=== PATIENT | male | born 1950 | race Caucasian/White ===

== ENCOUNTER 2018-10-20 21:26 | Emergency (ER) | payer MEDICARE, OTHER, SELFPAY ==
[2018-10-20 21:32] VITALS: BP 116/83; PULSE 179; RESP 18; TEMP 36.4; O2SAT 97; BMI 26.4
--- NOTE | 2018-10-20 21:44 | PC.NURSE ---
Pt converted to SR shortly after triage from HR in 170-190 to 50-60's. Pt denies any CP, SOB, dizziness during Afib but able to feel irregularity and palpitations. Pt reports the duration was about 20 min.
--- NOTE | 2018-10-20 22:10 | ED.ARRPALP ---
HPI - Arrhythmia/Palpitations General Chief Complaint: Arrhythmia/Palpitations Stated Complaint: states his heart is racing Time Seen by Provider: 10/20/18 21:56 Source: patient Mode of arrival: ambulatory Limitations: no limitations History of Present Illness HPI narrative: Patient presents emergency department complaining of an episode of palpitations and heart racing that lasted for about 20 minutes. Patient states that he has a history of atrial fibrillation and about 1 year ago had an ablation for this. He states that he has had no problems with the AFib with RVR until a couple of days ago when he had an elevated heart rate around 190. He states this only lasted about 10 minutes and then converted on its own. He states that he has had an upper respiratory type infection for the last week, but has been starting to feel better. He states he has gone out walking a couple of times and has felt good. He denies any chest pain or shortness of breath during the episode. No lightheadedness or dizziness. No syncope. Patient denies any nausea or vomiting. He states that since his episode converted upon arrival in triage, he feels normal. No other complaints at this time. The patient states that he was previously on digoxin and amiodarone, but those were both discontinued back in February. He states he takes metoprolol and Coumadin. Related Data Home Medications Medication Instructions Recorded Confirmed digoxin [Lanoxin] 0.125 mg PO QDAY #0 04/20/16 lisinopril 5 mg PO BID #0 04/20/16 metoprolol succinate [Toprol XL] 25 mg PO QDAY #0 04/20/16 spironolactone [Aldactone] 12.5 mg PO QDAY #0 04/20/16 aspirin 81 mg PO Q DAY #0 05/21/17 aspirin 325 mg PO PRN PRN #0 08/23/17 Previous Rx's Medication Instructions Recorded metoprolol succinate [Toprol XL] 25 mg PO BID #30 tab 08/26/17 warfarin [Coumadin] 5 mg PO QDAY #30 08/26/17 amiodarone 200 mg PO [facility] tab 09/26/17 Review of Systems Constitutional Denies chills, Denies fever(s), Denies lethargy and Denies weakness Eyes Denies change in vision, Denies eye discharge, Denies irritation and Denies loss of vision ENT Ears, Nose, Mouth, and Throat: Denies change in voice, Denies neck pain and Denies sore throat Cardiovascular Denies chest pain, Denies irregular heart rhythm, Denies lightheadedness, Reports palpitations, Denies dyspnea, Denies dyspnea on exertion and Denies orthopnea Respiratory Denies cough, Denies dyspnea, Denies dyspnea on exertion and Denies wheezing Gastrointestinal Gastrointestinal: Denies abdominal pain, Denies change in bowel habits, Denies diarrhea, Denies nausea and Denies vomiting Genitourinary Denies hematuria, Denies flank pain, Denies urinary incontinence and Denies urinary urgency Musculoskeletal Denies neck pain Integumentary/Breasts Denies pruritus, Denies erythema, Denies rash and Denies wounds Neurologic Denies confusion, Denies loss of vision and Denies weakness Psychiatric Denies anxiety, Denies confusion, Denies depression, Denies homicidal ideation and Denies suicidal ideation Endocrine Reports palpitations Hematologic/Lymphatic Denies easy bruising Allergic/Immunologic Denies wheezing [facility] Medical History Left inguinal hernia (Acute) Paroxysmal atrial fibrillation (Acute) Palpitations (Acute) Atrial fibrillation with rapid ventricular response (Acute) Shortness of breath (Acute) Headache (Acute) Surgical History History of radiofrequency ablation procedure for cardiac arrhythmia (Acute) Social History Smoking Status: Never smoker Social History Smoking Status: Never smoker Exam Initial Vital Signs Initial Vital Signs: Vital Signs Temperature 97.5 F L 10/20/18 21:32 Pulse Rate 179 H 10/20/18 21:32 Respiratory Rate 18 10/20/18 21:32 Blood Pressure 116/83 10/20/18 21:32 Pulse Oximetry 97 10/20/18 21:32 Const General: cooperative and well developed Nutritional Appearance: well nourished Orientation: alert, awake, oriented x3 and not confused [facility] Head: normocephalic and atraumatic Ears: external ears normal Nose: external nose normal and No nasal discharge Face and sinus: face symmetric and No dry mucous membranes Mouth: oral mucosae normal and moist mucous membranes Teeth and gingiva: dentition normal Eyes General: appearance normal, both eyes and all related structures Eyelids: eyelids normal Conjunctivae: conjunctivae normal Sclera: sclerae normal Pupils: PERRL EOM: EOM intact bilaterally Neck Neck: normal visual inspection, trachea midline, No lymphadenopathy, No midline deformity and No JVD Lymphatic: No lymphedema Chest Chest: normal inspection of the chest Resp Effort & Inspection: normal respiratory effort, able to speak in complete sentences, no respiratory distress and no use of accessory muscles Auscultation: clear to auscultation bilaterally, no rales, no rhonchi and no wheezes Cardio Rate: regular rate Rhythm: regular rhythm Heart Sounds: no click, no gallops, no murmurs and no rubs Pulses: normal peripheral pulses GI Inspection: non-distended Palpation: soft, no hepatosplenomegaly, No guarding, No pulsatile mass and No tender Auscultation: normal bowel sounds Back/Spine/Pelvis Back: No CVA tenderness Cervical Spine: cervical ROM normal and No pain with cervical ROM Thoracic/Lumbar Spine: thoracic and lumbar spine normal to inspection Skin General: no rashes or lesions noted, No jaundice and No petechiae Neuro General: alert, oriented x3, gait normal and no focal motor deficits Speech: speech normal Extrem General: full ROM, no clubbing, cyanosis or edema, no pedal edema and no calf tenderness Psych Appearance: well kempt Mental Status: mental status grossly normal Attitude: cooperative Thought Content: normal and suicidality Judgment: judgment good Course Course Narrative: The patient arrived with a pulse of 179 in triage, but converted to a normal sinus rhythm in the upper 50s to lower 60s while there. The patient was feeling quite well when I evaluated him, but I did feel that he should have basic laboratory studies done to determine whether there are any other contributors to the recurrence of his RVR. EKG was performed showed a sinus bradycardia. Labs were unremarkable. The patient remained stable throughout his stay in the emergency department, and I did feel he was stable for discharge home. We have discussed the need for patient to touch base with Cardiology again to determine whether he should be on anything for the episodes of tachycardia, or whether his web methods developer would prefer to wait and see if a pattern emerges. Patient was agreeable to this plan. We have discussed the usual indications for return. Orders Ordered: ED Orders 10/20/18 21:32 EKG-12 Lead Stat 10/20/18 22:22 Complete Blood Count AUTO DIFF Stat Comprehensive Metabolic Panel Stat Vital Signs - 8 hr 10/20/18 21:32 10/20/18 22:42 10/20/18 23:05 Temperature 97.5 F L Pulse Rate 179 H 51 L 52 L Respiratory Rate 18 13 16 Blood Pressure 116/83 Blood Pressure [Left Arm] 113/71 109/70 Pulse Oximetry 97 98 97 MDM - Arrhythmia/Palpitations Medical Records Attestation: I reviewed the patient's medical records. Lab Data Attestation: I reviewed the patient's lab results. Result diagrams: 10/20/18 22:22 10/20/18 22:22 Lab Results 10/20/18 10/20/18 Range/Units 22:22 22:22 WBC 8.3 (4.5-11.0) X10^3/uL RBC 4.83 (4.5-5.9) X10^6/uL Hgb 14.5 (13.5-17.5) g/dL Hct 43.0 (41-53) % MCV 89.2 (80-100) fL MCH 30.1 (26-34) PG MCHC 33.8 (30-36) % RDW 13.3 (11.6-14.8) % Plt Count 206 (150-400) X10^3/uL Neut % (Auto) 59.0 (50-75) % Lymph % (Auto) 28.4 (25-40) % [place] % (Auto) 7.1 (3-14) % Eos % (Auto) 4.2 H (2-4) % Baso % (Auto) 1.3 (0-2) % Neut # (Auto) 4900 (7458-1488) /uL Lymph # (Auto) 2400 (1729-4648) /uL [place] # (Auto) 600 (0-900) /uL Eos # (Auto) 300 (0-450) /uL Baso # (Auto) 100 (0-100) /uL Sodium 139 (137-145) mmol/L Potassium 4.3 (3.4-5.1) mmol/L Chloride 104 (98-107) mmol/L Carbon Dioxide 23 (22-32) mmol/L BUN 25 H (9-20) mg/dL Creatinine 1.10 (0.66-1.25) mg/dL Estimated GFR > 60.0 (>60) mL/min BUN/Creatinine Ratio 22.7 H (6-22) Glucose 114 H (80-110) mg/dL Calcium 8.7 (8.4-10.2) mg/dL Total Bilirubin 0.4 (0.2-1.3) mg/dL AST 22 (17-59) IU/L ALT 37 (21-72) IU/L Alkaline Phosphatase 80 (38-126) U/L Total Protein 7.0 (6.3-8.2) g/dL Albumin 4.2 (3.5-5.0) g/dL Globulin 2.8 (1.7-4.1) g/dL Albumin/Globulin Ratio 1.5 (1.0-2.8) ECG Data Attestation: I personally reviewed and interpreted this ECG as follows: (See below) Interpretation: Twelve lead EKG performed October 20, 2018 at 9:38 p.m., as follows: Regular ventricular rhythm with a rate of 59 beats per min [place] interval 158 milliseconds QRS duration 95 milliseconds QTC interval [address] depression 1 mm or less in leads 2, 3, and V3-5 Interpretation: Sinus bradycardia with occasional supraventricular premature complexes; moderate ST depression, scattered leads; no STEMI; abnormal EKG as interpreted by ED MD. Discharge Plan Departure Patient Disposition: Home Clinical Impression: Atrial fibrillation with rapid ventricular response Discharge Date/Time: 10/20/18 23:14 Interventions: ED Discharge Assessment Last Done: 10/20/18 23:15 Instructions: DI for Atrial Fibrillation Activity Restrictions/Additional Instructions: Your labs look good. You will need to call your web methods developer's office tomorrow to determine whether anything further should be done for your brief periods of atrial fibrillation with rapid response. At this point in time, you are in a normal heart rhythm and a normal heart rate, and we will not change your medications for now. Prescriptions: No Action metoprolol succinate [Toprol XL] 25 MG tablet extended release 24 hr 25 mg PO QDAY Qty: 0 RF: 0 digoxin [Lanoxin] 125 MCG tablet 0.125 mg PO QDAY Qty: 0 RF: 0 lisinopril 10 MG tablet 5 mg PO BID Qty: 0 RF: 0 spironolactone [Aldactone] 25 MG tablet 12.5 mg PO QDAY Qty: 0 RF: 0 aspirin 81 MG tablet,delayed release (DR/EC) 81 mg PO Q DAY Qty: 0 RF: 0 aspirin 325 MG tablet 325 mg PO PRN PRNQty: 0 RF: 0 warfarin [Coumadin] 5 MG tablet 5 mg PO QDAY Qty: 30 RF: 0 metoprolol succinate [Toprol XL] 25 MG tablet extended release 24 hr 25 mg PO BID Qty: 30 RF: 0 amiodarone 200 MG tablet 200 mg PO [facility] [address] Qty: 30 RF: 0 Referrals: Fernando Law MD [Primary Care Provider] -
--- NOTE | 2018-10-20 22:14 | ED_ITS ---
HPI - Arrhythmia/Palpitations General Chief Complaint: Arrhythmia/Palpitations Stated Complaint: states his heart is racing Time Seen by Provider: 10/20/18 21:56 Source: patient Mode of arrival: ambulatory Limitations: no limitations History of Present Illness HPI narrative: Patient presents emergency department complaining of an episode of palpitations and heart racing that lasted for about 20 minutes. Patient s tates that he has a history of atrial fibrillation and about 1 year ago had an ablation for this. He states that he has had no problems with the AFib with RVR until a couple of days ago when he had an elevated heart rate around 190. He states this only lasted about 10 minutes and then converted on its own. He states that he has had an upper respiratory type infection for the last week, but has been starting to feel better. He states he has gone out walking a couple of times and has felt good. He denies any chest pain or shortness of breath during the episode. No lightheadedness or dizziness. No syncope. Patient denies any nausea or vomiting. He states that since his episode converted upon arrival in triage, he feels normal. No other complaints at this time. The patient states that he was previously on digoxin and amiodarone, but those were both discontinued back in February. He states he takes metoprolol and Coumadin. Related Data Home Medications Medication Instructions Recorded Confirmed digoxin [Lanoxin] 0.125 mg PO QDAY #0 04/20/16 lisinopril 5 mg PO BID #0 04/20/16 metoprolol succinate [Toprol XL] 25 mg PO QDAY #0 04/20/16 spironolactone [Aldactone] 12.5 mg PO QDAY #0 04/20/16 aspirin 81 mg PO Q DAY #0 05/21/17 aspirin 325 mg PO PRN PRN #0 08/23/17 Previous Rx's Medication Instructions Recorded metoprolol succinate [Toprol XL] 25 mg PO BID #30 tab 08/26/17 warfarin [Coumadin] 5 mg PO QDAY #30 08/26/17 amiodarone 200 mg PO [facility] [place] tab 09/26/17 Review of Systems Constitutional Denies chills, Denies fever(s), Denies lethargy and Denies weakness Eyes Denies change in vision, Denies eye discharge, Denies irritation and Denies loss of vision ENT Ears, Nose, Mouth, and Throat: Denies change in voice, Denies neck pain and Denies sore throat Cardiovascular Denies chest pain, Denies irregular heart rhythm, Denies lightheadedness, Re ports palpitations, Denies dyspnea, Denies dyspnea on exertion and Denies orthopnea Respiratory Denies cough, Denies dyspnea, Denies dyspnea on exertion and Denies wheezing Gastrointestinal Gastrointestinal: Denies abdominal pain, Denies change in bowel habits, Denies diarrhea, Denies nausea and Denies vomiting Genitourinary Denies hematuria, Denies flank pain, Denies urinary incontinence and Denies ur inary urgency Musculoskeletal Denies neck pain Integumentary/Breasts Denies pruritus, Denies erythema, Denies rash and Denies wounds Neurologic Denies confusion, Denies loss of vision and Denies weakness Psychiatric Denies anxiety, Denies confusion, Denies depression, Denies homicidal ideation and Denies suicidal ideation Endocrine Reports palpitations Hematologic/Lymphatic Denies easy bruising Allergic/Immunologic Denies wheezing [facility] Medical History Left inguinal hernia (Acute) Paroxysmal atrial fibrillation (Acute) Palpitations (Acute) Atrial fibrillation with rapid ventricular response (Acute) Shortness of breath (Acute) Headache (Acute) Surgical History History of radiofrequency ablation procedure for cardiac arrhythmia (Acute) Social History Smoking Status: Never smoker Social History Smoking Status: Never smoker Exam Initial Vital Signs Initial Vital Signs: Vital Signs Temperature 97.5 F L 10/20/18 21:32 Pulse Rate 179 H 10/20/18 21:32 Respiratory Rate 18 10/20/18 21:32 Blood Pressure 116/83 10/20/18 21:32 Pulse Oximetry 97 10/20/18 21:32 Const General: cooperative and well developed Nutritional Appearance: well nourished Orientation: alert, awake, oriented x3 and not confused [facility] Head: normocephalic and atraumatic Ears: external ears normal Nose: external nose normal and No nasal discharge Face and sinus: face symmetric and No dry mucous membranes Mouth: oral mucosae normal and moist mucous membranes Teeth and gingiva: dentition normal Eyes General: appearance normal, both eyes and all related structures Eyelids: eyelids normal Conjunctivae: conjunctivae normal Sclera: sclerae normal Pupils: PERRL EOM: EOM intact bilaterally Neck Neck: normal visual inspection, trachea midline, No lymphadenopathy, No midline deformity and No JVD Lymphatic: No lymphedema Chest Chest: normal inspection of the chest Resp Effort & Inspection: normal respiratory effort, able to speak in complete sentences, no respiratory distress and no use of accessory muscles Auscultation: clear to auscultation bilaterally, no rales, no rhonchi and no wheezes Cardio Rate: regular rate Rhythm: regular rhythm Heart Sounds: no click, no gallops, no murmurs and no rubs Pulses: normal peripheral pulses GI Inspection: non-distended Palpation: soft, no hepatosplenomegaly, No guarding, No pulsatile mass and No tender Auscultation: normal bowel sounds Back/Spine/Pelvis Back: No CVA tenderness Cervical Spine: cervical ROM normal and No pain with cervical ROM Thoracic/Lumbar Spine: thoracic and lumbar spine normal to inspection Skin General: no rashes or lesions noted, No jaundice and No petechiae Neuro General: alert, oriented x3, gait normal and no focal motor deficits Speech: speech normal Extrem General: full ROM, no clubbing, cyanosis or edema, no pedal edema and no calf tenderness Psych Appearance: well kempt Mental Status: mental status grossly normal Attitude: cooperative Thought Content: normal and suicidality Judgment: judgment good Course Course Narrative: The patient arrived with a pulse of 179 in triage, but converted to a normal sinus rhythm in the upper 50s to lower 60s while there. The patient was feeling quite well when I evaluated him, but I did feel that he should have basic laboratory studies done to determine whether there are any other contributors to the recurrence of his RVR. EKG was performed showed a sinus bradycardia. Labs were unremarkable. The patient remained stable throughout his stay in the emergency department, and I did feel he was stable for discharge home. We have discussed the need for patient to touch base with Cardiology again to determine whether he should be on anything for the episodes of tachycardia, or whether his pipeline executive would prefer to wait and see if a pattern emerges. Patient was agreeable to this plan. We have discussed the usual indications for return. Orders Ordered: ED Orders 10/20/18 21:32 EKG-12 Lead Stat 10/20/18 22:22 Complete Blood Count AUTO DIFF Stat Comprehensive Metabolic Panel Stat Vital Signs - 8 hr 10/20/18 21:32 10/20/18 22:42 10/20/18 23:05 Temperature 97.5 F L Pulse Rate 179 H 51 L 52 L Respiratory Rate 18 13 16 Blood Pressure 116/83 Blood Pressure [Left Arm] 113/71 109/70 Pulse Oximetry 97 98 97 MDM - Arrhythmia/Palpitations Medical Records Attestation: I reviewed the patient's medical records. Lab Data Attestation: I reviewed the patient's lab results. Result diagrams: 10/20/18 22:22 10/20/18 22:22 Lab Results 10/20/18 10/20/18 Range/Units 22:22 22:22 WBC 8.3 (4.5-11.0) X10^3/uL RBC 4.83 (4.5-5.9) X10^6/uL Hgb 14.5 (13.5-17.5) g/dL Hct 43.0 (41-53) % MCV 89.2 (80-100) fL MCH 30.1 (26-34) PG MCHC 33.8 (30-36) % RDW 13.3 (11.6-14.8) % Plt Count 206 (150-400) X10^3/uL Neut % (Auto) 59.0 (50-75) % Lymph % (Auto) 28.4 (25-40) % [place] % (Auto) 7.1 (3-14) % Eos % (Auto) 4.2 H (2-4) % Baso % (Auto) 1.3 (0-2) % Neut # (Auto) 4900 (3203-6615) /uL Lymph # (Auto) 2400 (9875-3068) /uL [place] # (Auto) 600 (0-900) /uL Eos # (Auto) 300 (0-450) /uL Baso # (Auto) 100 (0-100) /uL Sodium 139 (137-145) mmol/L Potassium 4.3 (3.4-5.1) mmol/L Chloride 104 (98-107) mmol/L Carbon Dioxide 23 (22-32) mmol/L BUN 25 H (9-20) mg/dL Creatinine 1.10 (0.66-1.25) mg/dL Estimated GFR > 60.0 (>60) mL/min BUN/Creatinine Ratio 22.7 H (6-22) Glucose 114 H (80-110) mg/dL Calcium 8.7 (8.4-10.2) mg/dL Total Bilirubin 0.4 (0.2-1.3) mg/dL AST 22 (17-59) IU/L ALT 37 (21-72) IU/L Alkaline Phosphatase 80 (38-126) U/L Total Protein 7.0 (6.3-8.2) g/dL Albumin 4.2 (3.5-5.0) g/dL Globulin 2.8 (1.7-4.1) g/dL Albumin/Globulin Ratio 1.5 (1.0-2.8) ECG Data Attestation: I personally reviewed and interpreted this ECG as follows: (See below) Interpretation: Twelve lead EKG performed October 20, 2018 at 9:38 p.m., as follows: Regular ventricular rhythm with a rate of 59 beats per min [place] interval 158 milliseconds QRS duration 95 milliseconds QTC interval [address] depression 1 mm or less in leads 2, 3, and V3-5 Interpretation: Sinus bradycardia with occasional supraventricular premature complexes; moderate ST depression, scattered leads; no STEMI; abnormal EKG as interpreted by ED MD. Discharge Plan Departure Patient Disposition: Home Clinical Impression: Atrial fibrillation with rapid ventricular response Discharge Date/Time: 10/20/18 23:14 Interventions: ED Discharge Assessment Last Done: 10/20/18 23:15 Instructions: DI for Atrial Fibrillation Activity Restrictions/Additional Instructions: Your labs look good. You will need to call your pipeline executive's office tomorrow to determine whether anything further should be done for your brief periods of atrial fibrillation with rapid response. At this point in time, you are in a normal heart rhythm and a normal heart rate, and we will not change your medications for now. Prescriptions: No Action metoprolol succinate [Toprol XL] 25 MG tablet extended release 24 hr 25 mg PO QDAY Qty: 0 RF: 0 digoxin [Lanoxin] 125 MCG tablet 0.125 mg PO QDAY Qty: 0 RF: 0 lisinopril 10 MG tablet 5 mg PO BID Qty: 0 RF: 0 spironolactone [Aldactone] 25 MG tablet 12.5 mg PO QDAY Qty: 0 RF: 0 aspirin 81 MG tablet,delayed release (DR/EC) 81 mg PO Q DAY Qty: 0 RF: 0 aspirin 325 MG tablet 325 mg PO PRN PRNQty: 0 RF: 0 warfarin [Coumadin] 5 MG tablet 5 mg PO QDAY Qty: 30 RF: 0 metoprolol succinate [Toprol XL] 25 MG tablet extended release 24 hr 25 mg PO BID Qty: 30 RF: 0 amiodarone 200 MG tablet 200 mg PO [facility] Qty: 30 RF: 0 Referrals: Fernando Law MD [Primary Care Provider] -
[2018-10-20 22:34] LABS: Add Manual Diff / Slide Review NO; Basophils Absolute Auto 100 /uL (0-100); Basophils Percent Auto 1.3 % (0-2); Eosinophils Absolute Auto 300 /uL (0-450); Eosinophils Percent Auto 4.2 % (2-4); Hemoglobin 14.5 g/dL (13.5-17.5); Lymphocytes Absolute Auto 2400 /uL (1100-4500); Lymphocytes Percent Auto 28.4 % (25-40); Mean Corpuscular HGB Conc 33.8 % (30-36); Mean Corpuscular Hemoglobin 30.1 PG (26-34); Mean Corpuscular Volume 89.2 fL (80-100); Monocytes Absolute Auto 600 /uL (0-900); Monocytes Percent Auto 7.1 % (3-14); Neutrophils Absolute Auto 4900 /uL (1500-7000); Platelet Count 206 X10^3/uL (150-400); Red Blood Cell Count 4.83 X10^6/uL (4.5-5.9); Red Cell Distribution Width 13.3 % (11.6-14.8); White Blood Cell Count 8.3 X10^3/uL (4.5-11.0)
[2018-10-20 22:39] LABS: Alanine Aminotransferase 37 IU/L (21-72); Albumin 4.2 g/dL (3.5-5.0); Albumin Globulin Ratio 1.5 (1.0-2.8); Alkaline Phosphatase 80 U/L (38-126); Aspartate Aminotransferase 22 IU/L (17-59); BUN Creatinine Ratio 22.7 (6-22); Bilirubin Total 0.4 mg/dL (0.2-1.3); Blood Urea Nitrogen 25 mg/dL (9-20); Calcium 8.7 mg/dL (8.4-10.2); Carbon Dioxide 23 mmol/L (22-32); Chloride 104 mmol/L (98-107); Estimated Glomerular Filt Rate > 60.0 mL/min (>60); Globulin 2.8 g/dL (1.7-4.1); Glucose 114 mg/dL (80-110); HEMOLYSIS 23 (0-50); Potassium 4.3 mmol/L (3.4-5.1); Sodium 139 mmol/L (137-145)
[2018-10-20 22:42] VITALS: BP 113/71; PULSE 51; RESP 13; O2SAT 98
[2018-10-20 23:05] VITALS: BP 109/70; PULSE 52; RESP 16; O2SAT 97
== END 2018-10-20 23:14 | disposition home or self-care (01) ==
PROVIDERS: Emergency Provider Emergency Medicine; PCP Internal Medicine Cardiovascular Disease
DX: I48.91 Unspecified atrial fibrillation (principal)
CPT/HCPCS: 36415; 80053; 85025; 93005; 93041; 99283; 99284

== ENCOUNTER → 2018-10-29 08:39 | Outpatient (CLI) | payer MEDICARE, OTHER, SELFPAY ==
--- NOTE | 2018-10-29 08:41 | DI.RAD.S_ITS ---
PROCEDURE: XR CHEST 2V INDICATIONS: cough TECHNIQUE: 2 views of the chest were acquired. COMPARISON: [facility], CHEST 1 VIEW, 09/24/2017, 20:14. [facility], CHEST 1 VIEW, 08/26/2017, 11:44. FINDINGS: Surgical changes and devices: None. Lungs and pleura: Lungs are large, COPD may be present. No pneumonia or neoplasm is found.. No pleural effusions or pneumothorax. Mediastinum: Mediastinal contours are normal. Heart size is normal. Bones and chest wall: No suspicious bony abnormalities. Soft tissues appear unremarkable. IMPRESSION: Large lung volumes, no acute disease found. Dictated by: Maurisio Amos M.D. on 10/29/2018 at 8:55 Approved by: Maurisio Amos M.D. on 10/29/2018 at 9:00
== END ==
PROVIDERS: Referring Provider Internal Medicine Cardiovascular Disease; Visit Provider Physician Assistant
DX: R05 Cough (principal)
CPT/HCPCS: 71046

== ENCOUNTER → 2018-12-23 07:45 | Outpatient (CLI) | payer MEDICARE, OTHER, SELFPAY ==
[2018-12-23 09:10] LABS: Hemoglobin A1C% w Est Avg Glu 5.2 % (4.0-6.0)
[2018-12-23 09:42] LABS: Cholesterol 257 mg/dL (140-199); HDL Cholesterol 33 mg/dL (40-60); LDL Cholesterol Calculated 171 mg/dL (<100); Triglycerides 263 mg/dL (35-150)
== END ==
PROVIDERS: PCP Nurse Practitioner Family; Visit Provider Nurse Practitioner Family
DX: Z13.6 Encounter for screening for cardiovascular disorders (principal); R73.9 Hyperglycemia, unspecified
CPT/HCPCS: 36415; 80061; 83036

== ENCOUNTER → 2019-01-03 14:29 | Outpatient (CLI) | payer MEDICARE, OTHER, SELFPAY ==
[2019-01-07 18:01] LABS: Fecal Immunochemical Test NOT DETECTED (NOT DETECTED)
== END ==
PROVIDERS: PCP Nurse Practitioner Family; Visit Provider Nurse Practitioner Family
DX: Z12.11 Encounter for screening for malignant neoplasm of colon (principal); E78.2 Mixed hyperlipidemia
CPT/HCPCS: 82274

== ENCOUNTER 2019-03-12 08:18 | Emergency (ER) | payer MEDICARE, OTHER, SELFPAY ==
[2019-03-12] VITALS (14 sets, daily range): BP systolic 97–122; BP diastolic 74–87; PULSE 21–184; RESP 14–23; TEMP 36.7; O2SAT 93–99; BMI 24.0
--- NOTE | 2019-03-12 08:30 | DI.RAD.S_ITS ---
PROCEDURE: XR CHEST 1V INDICATIONS: chest pain TECHNIQUE: One view of the chest was acquired. COMPARISON: [facility], , CHEST 1 VIEW, 09/24/2017, 20:14. [facility], , XR CHEST 2V, 10/29/2018, 8:37. FINDINGS: Surgical changes and devices: Device projects over the left mid hemithorax. Lungs and pleura: Scattered atelectasis/scarring which appears unchanged No pleural effusions or pneumothorax. There are possible Rae B line seen at the lung bases. Minimal groundglass opacities Mediastinum: Mediastinal contours appear normal. Heart size is normal. Bones and chest wall: No suspicious bony lesions. Overlying soft tissues appear unremarkable. IMPRESSION: Mild groundglass opacities and possible Rae B-lines at both lung bases raise the possibility of minimal/early pulmonary edema. Please correlate clinically. If there is persistent clinical diagnostic uncertainty, continued surveillance with short interval chest radiographs after treatment is recommended. No acute consolidation. Dictated by: Lukas Lawton M.D. on 03/12/2019 at 9:10 Approved by: Lukas Lawton M.D. on 03/12/2019 at 9:12
--- NOTE | 2019-03-12 08:33 | ED_ITS ---
HPI - Arrhythmia/Palpitations General Chief Complaint: Arrhythmia/Palpitations Stated Complaint: heart is racing/short of breath Time Seen by Provider: 03/12/19 08:29 Source: patient Mode of arrival: ambulatory Limitations: no limitations History of Present Illness HPI narrative: patient is a 68-year-old male who presents with heart palpitations. He has a history of atrial fibrillation he has had an ablation in 2018. However he has had episodes off and on since then. He is currently wearing a Holter monitor. He was at the cardiology office this morning he said he got up around 2:30 a.m. and started feeling like he was short of breath. He was found to be in AFib with RVR and sent to the emergency department for further evaluation. He is on Coumadin. MD complaint: rapid heart beat Arrhythmia history: atrial fibrillation Related Data Home Medications Medication Instructions Recorded Confirmed spironolactone [Aldactone] 12.5 mg PO QDAY #0 04/20/16 11/05/18 warfarin 5 mg tablet 5 mg PO QDAY 11/05/18 Previous Rx's Medication Instructions Recorded metoprolol succinate [Toprol XL] 25 mg PO BID #30 tab 08/26/17 atorvastatin 40 mg tablet 40 mg PO BEDTIME #90 tab 12/24/18 Allergies Allergy/AdvReac Type Severity Reaction Status Date / Time No Known Drug Allergies Allergy Verified 03/12/19 08:24 Review of Systems Review of Systems GENERAL: Denies chills, fatigue, malaise, fever, sweats, travel HEENT: Denies sinus pain, ear pain, sore throat, difficulty swallowing, neck pain RESPIRATORY: Denies dyspnea, cough, wheezing, hemoptysis, sputum. CARDIOVASCULAR: See HPI GASTROINTESTINAL: Denies nausea, vomiting, abdominal pain, diarrhea, c onstipation, melena. : Denies dysuria, frequency, incontinence, hematuria, urinary retention, flank pain. MUSCULOSKELETAL: Denies weakness, joint pain, or bony pain SKIN: No rash, no erythema, no pruritus NEUROLOGIC: Denies weakness, dizziness, headache, numbness, change in speech, confusion PSYCHIATRIC: No concerning psychosocial issues. 12 point review of systems is negative except for those stated above and HPI [facility] Medical History Paroxysmal atrial fibrillation (Chronic) Palpitations (Chronic) Atrial fibrillation with rapid ventricular response (Chronic) Shortness of breath (Chronic) Headache (Chronic) Surgical History History of radiofrequency ablation procedure for cardiac arrhythmia (Resolved) Left inguinal hernia (Resolved) Anesthesia (Resolved) Family History (Updated 12/29/18 @ 20:42 by Lyric Mojica) Father Diabetes mellitus Social History Smoking Status: Never smoker second hand exposure: No alcohol intake: never substance use type: does not use Family History Father Diabetes mellitus Social History Smoking Status: Never smoker second hand exposure: No alcohol intake: never substance use type: does not use Exam Initial Vital Signs Initial Vital Signs: Vital Signs Temperature 98.0 F 03/12/19 08:24 Pulse Rate 184 H 03/12/19 08:24 Respiratory Rate 18 03/12/19 08:24 Blood Pressure 100/86 03/12/19 08:24 Pulse Oximetry 99 03/12/19 08:24 GENERAL: Alert well-appearing elderly male and in no acute distress. HEENT: Head atraumatic,EOMI, pupils reactive, face symmetric, CARDIOVASCULAR: Irregularly irregular no murmur RESPIRATORY: Breath sounds equal bilaterally, no wheezes rales or rhonchi. ABDOMEN: Soft, nontender. Normoactive bowel sounds all 4 quadrants. No guarding or rebound. : No CVA tenderness EXTREMITIES: Normal range of motion, no clubbing or edema. Neurovascularly intact NEUROLOGICAL: Alert and oriented x4.Normal gait and speech. SKIN: Warm, dry, no laceration, no petechiae, no rashes or lesions. Procedures Cardioversion Consent Signed: Yes Cardiac rhythm prior to cardioversion: atrial fibrillation with rvr Stability: Stable Joules used: 150 Cardiac rhythm post-cardioversion: sinus Procedural Sedation Patient Age: Patient is 5yrs or older Consent signed: Yes Time out performed: Yes Indication: cardioversion ASA Class: I Mallampati Airway Classification: Class I Preparation: bus driver/monitor applied, pulse oximeter and capnometry used IV Etomidate dose (mg): 8 Intraservice time/total sedation time (min): 15 ED Sedation Level: Moderate (Concious) Complications: none Course Orders Ordered: ED Orders 03/12/19 08:25 Complete Blood Count AUTO DIFF Stat Comprehensive Metabolic Panel Stat Magnesium Stat Troponin & CK Cardiac Panel Stat 03/12/19 08:30 XR chest 1V Stat EKG-12 Lead Stat 03/12/19 08:50 Partial Thromboplastin Time Stat Prothrombin Time INR Stat Discontinued Medications Diltiazem HCl (Cardizem) 10 mg IV NOW ONE Stop: 03/12/19 08:30 Last Admin: 03/12/19 08:48 Dose: 10 mg Diltiazem HCl (Cardizem) 10 mg IV NOW ONE Stop: 03/12/19 09:33 Last Admin: 03/12/19 09:33 Dose: 10 mg Etomidate (Amidate) 8 mg IV NOW ONE Stop: 03/12/19 09:40 Last Admin: 03/12/19 10:10 Dose: 8 mg Sodium Chloride (Normal Saline 0.9%) 1,000 mls @ 150 mls/hr IV CONT FLORES Last Admin: 03/12/19 08:40 Dose: 150 mls/hr Vital Signs - 8 hr 03/12/19 08:24 03/12/19 08:48 03/12/19 09:33 Temperature 98.0 F Pulse Rate 184 H 166 H 168 H Respiratory Rate 18 Blood Pressure 100/86 108/87 115/82 Blood Pressure [Right Arm] Pulse Oximetry 99 03/12/19 10:00 03/12/19 10:05 03/12/19 10:10 Temperature Pulse Rate 69 164 H 94 H Respiratory Rate 19 23 20 Blood Pressure Blood Pressure [Right Arm] 108/75 108/75 115/78 Pulse Oximetry 94 98 94 03/12/19 10:15 03/12/19 10:20 03/12/19 10:25 Temperature Pulse Rate 65 21 L 62 Respiratory Rate 21 21 18 Blood Pressure Blood Pressure [Right Arm] 113/86 97/74 115/78 Pulse Oximetry 97 93 98 03/12/19 10:30 03/12/19 10:35 03/12/19 10:40 Temperature Pulse Rate 60 60 59 L Respiratory Rate 17 16 16 Blood Pressure Blood Pressure [Right Arm] 116/82 116/81 116/81 Pulse Oximetry 96 97 98 03/12/19 11:03 03/12/19 11:27 Temperature Pulse Rate 55 L 60 Respiratory Rate 16 18 Blood Pressure 122/86 Blood Pressure [Right Arm] 120/80 Pulse Oximetry 97 97 MDM - Arrhythmia/Palpitations Lab Data Attestation: I reviewed the patient's lab results. Result diagrams: 03/12/19 08:25 03/12/19 08:25 Lab Results 03/12/19 03/12/19 03/12/19 Range/Units 08:25 08:25 08:25 WBC 8.6 (4.5-11.0) X10^3/uL RBC 4.87 (4.5-5.9) X10^6/uL Hgb 14.7 (13.5-17.5) g/dL Hct 43.4 (41-53) % MCV 89.1 (80-100) fL MCH 30.3 (26-34) PG MCHC 34.0 (30-36) % RDW 14.6 (11.6-14.8) % Plt Count 221 (150-400) X10^3/uL Neut % (Auto) 71.8 (50-75) % Lymph % (Auto) 16.3 L (25-40) % [place] % (Auto) 8.1 (3-14) % Eos % (Auto) 2.3 (2-4) % Baso % (Auto) 1.5 (0-2) % Neut # (Auto) 6200 (1459-4385) /uL Lymph # (Auto) 1400 (8109-7533) /uL [place] # (Auto) 700 (0-900) /uL Eos # (Auto) 200 (0-450) /uL Baso # (Auto) 100 (0-100) /uL PT (10.1-12.7) SECONDS INR (0.9-1.3) APTT (26.4-36.2) SECONDS Sodium 139 (137-145) mmol/L Potassium 4.3 (3.4-5.1) mmol/L Chloride 106 (98-107) mmol/L Carbon Dioxide 26 (22-32) mmol/L BUN 32 H (9-20) mg/dL Creatinine 1.10 (0.66-1.25) mg/dL Estimated GFR > 60.0 (>60) mL/min BUN/Creatinine Ratio 29.1 H (6-22) Glucose 116 H (80-110) mg/dL Calcium 9.0 (8.4-10.2) mg/dL Magnesium 2.0 (1.6-2.3) mg/dL Total Bilirubin 1.0 (0.2-1.3) mg/dL AST 41 (17-59) IU/L ALT 76 H (21-72) IU/L Alkaline Phosphatase 105 (38-126) U/L Total Creatine Kinase 117 (55-170) U/L CK-MB (CK-2) 1.82 (<2.37) ng/mL CK-MB (CK-2) Rel Index 1.6 (1.5-5.0) % Troponin I < 0.012 (0.01-0.034) ng/mL Total Protein 6.8 (6.3-8.2) g/dL Albumin 4.0 (3.5-5.0) g/dL Globulin 2.8 (1.7-4.1) g/dL Albumin/Globulin Ratio 1.4 (1.0-2.8) / Range/Units 08:50 WBC (4.5-11.0) X10^3/uL RBC (4.5-5.9) X10^6/uL Hgb (13.5-17.5) g/dL Hct (41-53) % MCV (80-100) fL MCH (26-34) PG MCHC (30-36) % RDW (11.6-14.8) % Plt Count (150-400) X10^3/uL Neut % (Auto) (50-75) % Lymph % (Auto) (25-40) % [place] % (Auto) (3-14) % Eos % (Auto) (2-4) % Baso % (Auto) (0-2) % Neut # (Auto) (5193-6096) /uL Lymph # (Auto) (7862-8050) /uL Win[place] # (Auto) (0-900) /uL Eos # (Auto) (0-450) /uL Baso # (Auto) (0-100) /uL PT 40.4 H (10.1-12.7) SECONDS INR 3.4 H (0.9-1.3) APTT 48 H (26.4-36.2) SECONDS Sodium (137-145) mmol/L Potassium (3.4-5.1) mmol/L Chloride (98-107) mmol/L Carbon Dioxide (22-32) mmol/L BUN (9-20) mg/dL Creatinine (0.66-1.25) mg/dL Estimated GFR (>60) mL/min BUN/Creatinine Ratio (6-22) Glucose (80-110) mg/dL Calcium (8.4-10.2) mg/dL Magnesium (1.6-2.3) mg/dL Total Bilirubin (0.2-1.3) mg/dL AST (17-59) IU/L ALT (21-72) IU/L Alkaline Phosphatase (38-126) U/L Total Creatine Kinase (55-170) U/L CK-MB (CK-2) (<2.37) ng/mL CK-MB (CK-2) Rel Index (1.5-5.0) % Troponin I (0.01-0.034) ng/mL Total Protein (6.3-8.2) g/dL Albumin (3.5-5.0) g/dL Globulin (1.7-4.1) g/dL Albumin/Globulin Ratio (1.0-2.8) Imaging Data Chest x-ray: Radiologist's impression: PROCEDURE: XR CHEST 1V INDICATIONS: chest pain TECHNIQUE: One view of the chest was acquired. COMPARISON: [facility], , CHEST 1 VIEW, 09/24/2017, 20:14. [facility], , XR CHEST 2V, 10/29/2018, 8:37. FINDINGS: Surgical changes and devices: Device projects over the left mid hemithorax. Lungs and pleura: Scattered atelectasis/scarring which appears unchanged No pleural effusions or pneumothorax. There are possible Rae B line seen at the lung bases. Minimal groundglass opacities Mediastinum: Mediastinal contours appear normal. Heart size is normal. Bones and chest wall: No suspicious bony lesions. Overlying soft tissues appear unremarkable. IMPRESSION: Mild groundglass opacities and possible Rae B-lines at both lung bases raise the possibility of minimal/early pulmonary edema. Please correlate clinically. If there is persistent clinical diagnostic uncertainty, continued surveillance with short interval chest radiographs after treatment is recommended. No acute consolidation. Dictated by: Lukas Lawton M.D. on 03/12/2019 at 9:10 ECG Data Attestation: I personally reviewed and interpreted this ECG as follows: Prior ECG tracings: available for review Interpretation: Atrial fibrillation rate [address] changes EKG 2. Normal sinus rhythm with PVCs T-wave inversions noted MDM Narrative Medical decision making narrative: Patient has no chest pain overall feels better. Cardioverted. No chest pain. Does have some new T-wave inversions however troponin is negative he had chest discomfort ongoing since in the morning more than 6 hours. Chest discomfort was likely related to AFib with RVR. He has no ST elevations. Discharge Plan Departure Patient Disposition: Home Clinical Impression: Atrial fibrillation with rapid ventricular response Discharge Date/Time: 03/12/19 11:28 Interventions: ED Discharge Assessment Last Done: 03/12/19 11:27 Instructions: DI for Atrial Fibrillation Activity Restrictions/Additional Instructions: *You have been diagnosed with atrial fibrillation *What to do: Please see your excellence coach. You may require change in medication, INR today is 3.4 *Continue to take medications as directed *Follow up with your primary care provider in 2-3 days *Return to ER if you should have shortness of breath palpitations dizziness lightheadedness or any new, worsening or concerning symptoms Prescriptions: No Action warfarin [Coumadin] 5 mg tablet 5 mg PO QDAY RF: 0 spironolactone [Aldactone] 25 MG tablet 12.5 mg PO QDAY Qty: 0 RF: 0 metoprolol succinate [Toprol XL] 25 MG tablet extended release 24 hr 25 mg PO BID Qty: 30 RF: 0 atorvastatin 40 mg tablet 40 mg PO BEDTIME Qty: 90 RF: 1 Referrals: Marbin Nieto ARNP [Primary Care Provider] - Fernando Law MD [Non-Staff] -
[2019-03-12] MEDS: SODIUM CHLORIDE 0.9% 1,000 ML 150 ML IV (08:40)
[2019-03-12 08:42] LABS: Add Manual Diff / Slide Review NO; Basophils Absolute Auto 100 /uL (0-100); Basophils Percent Auto 1.5 % (0-2); Eosinophils Absolute Auto 200 /uL (0-450); Eosinophils Percent Auto 2.3 % (2-4); Hematocrit 43.4 % (41-53); Hemoglobin 14.7 g/dL (13.5-17.5); Lymphocytes Absolute Auto 1400 /uL (1100-4500); Lymphocytes Percent Auto 16.3 % (25-40); Mean Corpuscular Hemoglobin 30.3 PG (26-34); Mean Corpuscular Volume 89.1 fL (80-100); Monocytes Absolute Auto 700 /uL (0-900); Monocytes Percent Auto 8.1 % (3-14); Neutrophils Absolute Auto 6200 /uL (1500-7000); Neutrophils Percent Auto 71.8 % (50-75); Platelet Count 221 X10^3/uL (150-400); Red Blood Cell Count 4.87 X10^6/uL (4.5-5.9); Red Cell Distribution Width 14.6 % (11.6-14.8); White Blood Cell Count 8.6 X10^3/uL (4.5-11.0)
[2019-03-12 08:47] LABS: Creatine Kinase 117 U/L (55-170)
[2019-03-12 08:48] LABS: Alanine Aminotransferase 76 IU/L (21-72); Albumin Globulin Ratio 1.4 (1.0-2.8); Alkaline Phosphatase 105 U/L (38-126); Aspartate Aminotransferase 41 IU/L (17-59); BUN Creatinine Ratio 29.1 (6-22); Blood Urea Nitrogen 32 mg/dL (9-20); Carbon Dioxide 26 mmol/L (22-32); Chloride 106 mmol/L (98-107); Estimated Glomerular Filt Rate > 60.0 mL/min (>60); Globulin 2.8 g/dL (1.7-4.1); Glucose 116 mg/dL (80-110); HEMOLYSIS 22 (0-50); Potassium 4.3 mmol/L (3.4-5.1); Sodium 139 mmol/L (137-145); Total Protein 6.8 g/dL (6.3-8.2)
[2019-03-12] MEDS: dilTIAZem 5 MG/ML SDV 10 MG IV ×2 (08:48→09:33)
[2019-03-12 08:59] LABS: Troponin I < 0.012 ng/mL (0.01-0.034)
[2019-03-12 09:02] LABS: CKMB % Relative Index 1.6 % (1.5-5.0); Creatine Kinase MB 1.82 ng/mL (<2.37)
[2019-03-12 09:11] LABS: INR 3.4 (0.9-1.3); Prothrombin Time 40.4 SECONDS (10.1-12.7)
[2019-03-12 09:13] LABS: PTT Partial Thromboplastin Tim 48 SECONDS (26.4-36.2)
--- NOTE | 2019-03-12 09:38 | PC.NURSE ---
2nd dose of diltiazem. Ptas HR continues between 135 and 161
[2019-03-12] MEDS: ETOMIDATE 2 MG/ML 10 ML VIAL 8 MG IV (10:10)
--- NOTE | 2019-03-22 08:07 | PC.NURSE ---
NS ran from 9566 to 1913 for the amount of 450cc
== END 2019-03-12 11:28 | disposition home or self-care (01) ==
PROVIDERS: Emergency Provider Emergency Medicine; PCP Nurse Practitioner Family
DX: I48.91 Unspecified atrial fibrillation (principal); Z79.01 Long term (current) use of anticoagulants
CPT/HCPCS: 36415; 36591; 71045; 80053; 82550; 82553; 83735; 84484; 85025; 85610; 85730; 92960; 93005; 94770; 96361; 96374; 96375; 96376; 99152; 99284; 99285

== ENCOUNTER 2019-03-13 01:25 | Emergency (ER) | payer MEDICARE, OTHER, SELFPAY ==
[2019-03-13] VITALS (22 sets, daily range): BP systolic 109–154; BP diastolic 71–120; PULSE 61–176; RESP 16–28; TEMP 36.6; O2SAT 89–100; BMI 24.0
--- NOTE | 2019-03-13 01:43 | ED.SOB ---
HPI - SOB/Dyspnea General Chief Complaint: Upper Respiratory Symptoms Stated Complaint: SOB Time Seen by Provider: 03/13/19 01:25 Source: patient Mode of arrival: ambulatory Limitations: no limitations History of Present Illness 68-year-old male who was seen here earlier today for atrial fibrillation with RVR. Was cardioverted here in the emergency department with a conversion to sinus rhythm. had labs performed which were unremarkable. Had an INR of 3.4. He is on metoprolol. Here this evening for worsening shortness of breath. States that he has been short of breath for the past several days. He was short of breath even before his visit here to the emergency department earlier today. States that he was a little bit better after he was cardioverted and went home and took a nap but then woke up and since that time has had worsening shortness of breath. he has no primary lung disease to include COPD or asthma to his knowledge. He has never been diagnosed with heart failure. He states that his shortness of breath today is worse than what it has been prior to his cardioversion this morning. Related Data Home Medications Medication Instructions Recorded Confirmed spironolactone [Aldactone] 12.5 mg PO QDAY #0 04/20/16 11/05/18 warfarin 5 mg tablet 5 mg PO QDAY 11/05/18 Previous Rx's Medication Instructions Recorded metoprolol succinate [Toprol XL] 25 mg PO BID #30 tab 08/26/17 atorvastatin 40 mg tablet 40 mg PO BEDTIME #90 tab 12/24/18 Allergies Allergy/AdvReac Type Severity Reaction Status Date / Time No Known Drug Allergies Allergy Verified 03/12/19 08:24 Review of Systems Constitutional Denies fever(s) and Denies headache(s) ENT Ears, Nose, Mouth, and Throat: Denies dizziness and Denies headache(s) Cardiovascular Denies chest pain, Denies edema, Denies irregular heart rhythm, Denies palpitations, Reports dyspnea and Reports dyspnea on exertion Respiratory Reports dyspnea and Reports dyspnea on exertion Gastrointestinal Gastrointestinal: Denies abdominal pain, Denies nausea and Denies vomiting Musculoskeletal Denies myalgias and Denies arthralgias Integumentary/Breasts Denies lesions and Denies rash Neurologic Denies dizziness and Denies headache(s) Endocrine Denies palpitations Hematologic/Lymphatic Denies easy bleeding and Denies easy bruising [facility] Medical History Paroxysmal atrial fibrillation (Chronic) Palpitations (Chronic) Atrial fibrillation with rapid ventricular response (Chronic) Shortness of breath (Chronic) Headache (Chronic) Social History Smoking Status: Never smoker second hand exposure: No alcohol intake: never substance use type: does not use Exam Initial Vital Signs Initial Vital Signs: Vital Signs Temperature 98 F 03/13/19 01:30 Pulse Rate 74 03/13/19 01:30 Respiratory Rate 24 03/13/19 01:30 Blood Pressure 131/78 03/13/19 01:30 Pulse Oximetry 96 03/13/19 01:30 Const General: cooperative, well groomed and No acute distress Orientation: alert and awake Resp Effort & Inspection: labored and tachypneic Auscultation: clear to auscultation bilaterally Cardio Rate: regular rate Rhythm: regular rhythm Pulses: radial pulses present GI Inspection: non-distended Palpation: soft, No firm and No tender Skin Lesions: no lesions Rashes: no rashes Neuro General: alert and awake Cognition: normal cognition Speech: speech normal Extrem General: normal to inspection, capillary refill normal and No edema Psych Appearance: well kempt Course Orders Ordered: ED Orders 03/13/19 01:29 EKG-12 Lead Stat 03/13/19 01:30 B Type Natriuretic Peptide Stat Troponin I Stat 03/13/19 01:49 CT angio chest PE protocol Stat 03/13/19 02:44 Arterial Blood Gas Stat Sodium Chloride (Normal Saline 0.9%) 1,000 mls @ 1,000 mls/hr IV BOLUS PRN PRN Reason: Fluid replacement Last Admin: 03/13/19 02:12 Dose: 1,000 mls/hr Discontinued Medications Albuterol/Ipratropium (Duoneb) 3 ml INH NOW ONE Stop: 03/13/19 02:35 Last Admin: 03/13/19 02:44 Dose: 3 ml Albuterol/Ipratropium (Duoneb) 3 ml INH NOW ONE Stop: 03/13/19 03:04 Last Admin: 03/13/19 03:06 Dose: 3 ml Furosemide (Lasix) 40 mg IV NOW ONE Stop: 03/13/19 02:35 Last Admin: 03/13/19 02:39 Dose: 40 mg Vital Signs - 8 hr 03/13/19 01:30 03/13/19 02:08 03/13/19 02:35 Temperature 98 F Pulse Rate 74 82 78 Respiratory Rate 24 25 H 28 H Blood Pressure 131/78 Blood Pressure [Left Arm] 150/95 H 154/120 H Pulse Oximetry 96 89 L 97 03/13/19 02:45 03/13/19 03:07 03/13/19 03:18 Temperature Pulse Rate 70 83 Respiratory Rate 22 25 H Blood Pressure Blood Pressure [Left Arm] 143/100 H Pulse Oximetry 95 93 94 MDM - SOB/Dyspnea Medical Records Attestation: I reviewed the patient's medical records. Lab Data Attestation: I reviewed the patient's lab results. Lab Results 03/13/19 03/13/19 03/13/19 Range/Units 01:30 01:30 02:44 ABG pH 7.34 L (7.35-7.45) ABG pCO2 34.1 L (35-45) mmHg ABG pO2 69 L (80-100) mmHg ABG HCO3 18 L (22-26) mmol/L ABG Total CO2 19 L (21-31) mmol/L ABG O2 Saturation 93 L (95-100) % ABG Base Excess -7.0 L (-2-2) mmol/L FiO2 24 Troponin I 0.037 H (0.01-0.034) ng/mL B-Natriuretic Peptide < 100 (<100) Imaging Data CT scan - chest: Radiologist's impression: Read by real radiology No PE seen Mild to moderate bilateral pleural effusions and probable pulmonary edema ECG Data Attestation: I personally reviewed and interpreted this ECG as follows: Prior ECG tracings: available for review Interpretation: Sinus rhythm Ventricular rate 84 PVCs and PACs Normal axis Nonspecific ST T wave changes MDM Narrative Medical decision making narrative: Patient not in atrial fibrillation however is having frequent PVCs and PACs. His BNP is negative however his symptoms and CT scan and chest x-ray from earlier today are concerning for potential heart failure. This is also given the setting of his atrial fibrillation and cardioversion earlier today. His troponin is slightly elevated this evening however this is also in the setting of a cardioversion and no chest pain. He did report some improvement after nebulizer here in the ER. Patient did ambulate to the bathroom off oxygen and when he came back to the room he was significantly dyspneic. Was hypoxic to the mid to high 80s which improved when he is placed back on oxygen. His ABG is relatively unremarkable. He is not hypercarbic. I did discuss the case with Dr. Nicole who was on-call for Cardiology for the patient's cardiology group at [facility]. all of her recommended admitting for diuresis, echocardiogram, and further workup for potential noncardiac causes of his shortness of breath. patient does not have any prior history of COPD or asthma. I discussed the case with PAULA Forde the night hospitalist who will admit. Discussed admission with the patient his who is at bedside they all expressed understanding and agreement. Discharge Plan Departure Patient Disposition: Admitted As Inpatient Clinical Impression: Paroxysmal atrial fibrillation, Breath shortness, Hypoxia
--- NOTE | 2019-03-13 01:45 | PC.NURSE ---
PT breathing labored, worse with exertion o2 Sat in high 80's placed on 2 L NC O2 per Dr. Domingo.
--- NOTE | 2019-03-13 01:49 | DI.CT.S_ITS ---
PROCEDURE: CT ANGIO CHEST PE PROTOCOL INDICATIONS: Chest pain, shortness of breath, tachycardia TECHNIQUE: After the administration of intravenous contrast, 2 mm thick sections acquired from the pulmonary apices to the posterior costophrenic angles. 3-dimensional maximum intensity projection (MIP) coronal and sagittal reformats were then acquired through the thorax. For radiation dose reduction, the following was used: automated exposure control, adjustment of mA and/or kV according to patient size. COMPARISON: None. FINDINGS: Image quality: Excellent. Pulmonary arteries: Pulmonary arteries are normal in size, and demonstrate no intraluminal filling defects to suggest central pulmonary embolism. Lungs and pleura: Lungs are abnormal, with a generalized pulmonary edema pattern mild in overall severity. There are bilateral simple appearing moderate sized pleural effusions and no pneumothorax. Central and peripheral airways are patent. Mediastinum: Heart size is is globally enlarged, mildly, without pericardial effusion. No mediastinal or hilar adenopathy. Thoracic aorta is normal in caliber and enhancement. Esophagus is normal in caliber, without hiatal hernia. Bones and chest wall: No suspicious bony lesions. Ribs and thoracic spine appear intact throughout. Thyroid gland appears normal. No axillary or supraclavicular adenopathy. Abdomen: Visualized upper abdominal solid organs appear normal in the early arterial phase of enhancement. IMPRESSION: Generalized mild pulmonary edema with mild to moderate bilateral pleural effusions that appear simple in character with water radiodensity. This likely is cardiogenic in origin given the presence of global mild cardiomegaly. No underlying pneumonia or neoplasm is suspected. Dictated by: Maurisio Amos M.D. on 03/13/2019 at 8:48 Approved by: Maurisio Amos M.D. on 03/13/2019 at 8:51
--- NOTE | 2019-03-13 02:00 | PC.NURSE ---
PT states SOB worsening onset 3 days ago, was seen here yesterday for afib with RVR and cardioverted. Pt states that he felt a little bit better after he was cardioverted, went home and awoke from a nap with worsening shortness of breath. Denies hx of respiratory issues or pain.
[2019-03-13 02:04] LABS: B Type Natriuretic Peptide < 100 (<100)
[2019-03-13] MEDS: SODIUM CHLORIDE 0.9% 1,000 ML 1000 ML IV (02:12)
[2019-03-13] MEDS: FUROSEMIDE 40 MG/4 ML VIAL IV (02:39)
[2019-03-13] MEDS: ALBUTEROL/IPRATROPIUM 3 ML AMPUL INH ×2 (02:44→03:06)
[2019-03-13 02:52] LABS: Troponin I 0.037 ng/mL (0.01-0.034)
[2019-03-13 02:57] LABS: HCO3 ABG 18 mmol/L (22-26); PCO2 ABG 34.1 mmHg (35-45); PO2 ABG 69 mmHg (80-100); TCO2 ABG 19 mmol/L (21-31); pH ABG 7.34 (7.35-7.45)
[2019-03-13 02:58] LABS: Fractionated Inspired Oxygen 24; Oxygen Saturation ABG 93 % (95-100)
[2019-03-13] MEDS: dilTIAZem 5 MG/ML SDV 20 MG IV (04:01)
[2019-03-13] MEDS: METOPROLOL TARTRATE 5 MG/5 ML INJ IV (04:25)
[2019-03-13] MEDS: METOPROLOL ER 25 MG TABLET PO (08:53)
[2019-03-13] MEDS: SPIRONOLACTONE 25 MG TABLET 12.5 MG PO (08:53)
[2019-03-13 11:21] LABS: Prothrombin Time 62.2 SECONDS (10.1-12.7)
[2019-03-13 11:26] LABS: INR 5.3 (0.9-1.3)
[2019-03-13 11:28] LABS: B Type Natriuretic Peptide 183 (<100)
[2019-03-13] MEDS: ACETAMINOPHEN 325 MG TABLET 650 MG PO (12:37)
== END 2019-03-13 12:30 | disposition short-term general hospital (02) ==
LOC: ED 03:41 → AC 04:22 → ED 08:22
PROVIDERS: Emergency Medicine; Emergency Provider Emergency Medicine; PCP Nurse Practitioner Family
DX: I48.0 Paroxysmal atrial fibrillation (principal); R06.02 Shortness of breath; R09.02 Hypoxemia
CPT/HCPCS: 36415; 36591; 36600; 71275; 82805; 83880; 84484; 85610; 93005; 94640; 96361; 96374; 96375; 99285; J1940; Q9967

== ENCOUNTER → 2020-01-09 08:54 | Outpatient (CLI) | payer MEDICARE, OTHER, SELFPAY ==
[2020-01-10 09:42] LABS: COVID19 Sendout NOT DETECTED (Not Detect)
== END ==
PROVIDERS: PCP Nurse Practitioner Family; Visit Provider Physician Assistant
DX: Z01.818 Encounter for other preprocedural examination (principal)
CPT/HCPCS: 87635

== ENCOUNTER 2020-01-12 10:13 | Day surgery (SDC) | payer MEDICARE, OTHER, SELFPAY ==
[2020-01-06 10:33] VITALS: BMI 25.3
[2020-01-12] VITALS (7 sets, daily range): BP systolic 119–146; BP diastolic 67–81; PULSE 51–66; RESP 10–25; TEMP 36–36.1; O2SAT 97–100; BMI 24.3
[2020-01-12] MEDS: LACTATED RINGERS 1,000 ML 100 ML IV (11:46)
--- NOTE | 2020-01-12 12:54 | P.HP_ITS ---
History of Present Illness History of Present Illness Date Patient Seen: 01/12/20 Time Patient Seen: 12:29 Chief complaint: 11[address] OPEN [facility] REPAIR Narrative: The patient is a gentleman with a right inguinal hernia that has been bothersome to him. He was scheduled to have this repaired earlier but COVID-19 came about and we delayed his repair until now. He has coded negative on testing. He had a cardiac ablation done and presently is in sinus rhythm. He was having paroxysmal atrial fibrillation with rapid ventricular response. He is on a blood thinner Eliquis which he stopped 3 and half days ago. He takes metoprolol which he takes once a day now and he took it last night. He normally wears a hernia belt to hold his hernia in. Patient History Medical History Atrial fibrillation with rapid ventricular response (Chronic) Cardiomyopathy (Acute) Chronic systolic heart failure (Acute) Headache (Chronic) HTN (hypertension) (Acute) Palpitations (Chronic) Paroxysmal atrial fibrillation (Chronic) QT prolongation (Acute) Shortness of breath (Chronic) Sinus bradycardia (Acute) SVT (supraventricular tachycardia) (Acute) Surgical History Anesthesia (Resolved) History of radiofrequency ablation procedure for cardiac arrhythmia (Resolved) Left inguinal hernia (Resolved 2014) Family & Social History Family History Father Diabetes mellitus Social History: household members significant other Tobacco & Substance use: Smoking Status Never smoker alcohol intake never alcohol intake frequency other Substance Use Type does not use Meds Home Medications and Allergies Home Medications Medication Instructions Recorded Confirmed Type spironolactone [Aldactone] 12.5 mg PO QDAY #0 04/20/16 01/12/20 History atorvastatin 40 mg tablet 40 mg PO BEDTIME #90 tab 07/08/19 01/12/20 Rx apixaban 5 mg tablet 5 mg PO BID 08/19/19 01/12/20 History metoprolol succinate [Toprol XL] 25 mg PO BEDTIME 01/06/20 01/12/20 History Allergies Allergy/AdvReac Type Severity Reaction Status Date / Time No Known Drug Allergies Allergy Verified 01/12/20 11:19 Review of Systems Review of Systems ROS: Yes All systems reviewed with the patient and are negative except as otherwise documented Exam Vital Signs (past 8 hours): - 01/12/20 11:30 Temperature 96.9 F L Pulse Rate 53 L Respiratory Rate 16 Blood Pressure 146/81 H Pulse Oximetry 99 Oxygen Delivery Method Room Air Narrative Exam Narrative: Cooperative no apparent distress. Eyes are nonicteric. There are no nodes in the neck supraclavicular areas. Lungs are clear to auscultation without rales or rhonchi could percussion heart regular rate and rhythm. Very distant tones. I hear no murmurs or gallops. Abdomen is soft nontender without mass. Liver and spleen are not enlarged. He has a reducible right inguinal hernia. Scar from repair in the past as noted on left. Patient is alert and oriented x3. Speech rate and content are appropriate. Affect is appropriate. Assessment & Plan Assessment and plan (1) Right inguinal hernia: Problem details: I have discussed repair with a probable use of mesh. Risks of bleeding infection recurrence injury to nerves which could cause chronic pain or numbness, injury to the vas deferens and injury to the testicle were all discussed with him. He appears to understand. He had no questions and he wish ed to proceed. Status: Acute (2) Paroxysmal atrial fibrillation: Problem details: Patient is beta blocked and as best I can tell he is in sinus rhythm at this time. He does plate blood thinner but it was stopped several days ago in anticipation of this operation. Status: Chronic
--- NOTE | 2020-01-12 12:58 | PM.PREOP ---
Pre-operative Note COVID-19 COVID-19 status: Negative Result date/Date tested (Pos, Neg/Pending): 01/09/20 Interval Note History & Physical reviewed/Exam performed by Physician: Yes Changes to H&P: No
[2020-01-12] MEDS: CEFAZOLIN 2 GM/100 ML FROZ.PIGGY IV (13:00)
--- NOTE | 2020-01-12 13:20 | SUR.OPER ---
Supine on padded OR bed, head on pillow, arms secured on padded arm boards at <90 degrees abduction, legs uncrossed, safety belt at thigh, tape over blanket over lower legs.
[2020-01-12] MEDS: BUPIVACAINE 0.5% (PF) VIAL 30 ML INJ (13:24)
--- NOTE | 2020-01-12 14:31 | PM.OP.1 ---
Operative Date/Time/Diagnoses Date of procedure: 01/12/20 Time of procedure: 14:24 Pre-op diagnosis: Right inguinal hernia reducible Post-op diagnosis: same (Indirect hernia. Large lipoma of the cord. Large lipoma of the proximal right thigh.) Procedure & Clinicians Procedure: Repair with plug and patch technique Same procedure as scheduled: Yes Indications: Symptomatic hernia Surgeon: Axel Slade Click Yes if Unassisted: Yes Anesthesia Type: General Operative Notes Findings: Sac and large amount of fat in the cord. Patient a very large lipoma the proximal thigh which also may give this sensation of a hernia to the patient but clearly he I had the other problems and these were repaired. I removed a portion of the lipoma that was easy to remove but did not attempt to remove the whole thing due the patient being a blood thinner and the fact that it was not necessary. Closure Type: primary Specimen(s): none sent Prosthetic devices, grafts, tissues, transplants, or devices: Mesh medium plug used Estimated Blood Loss (mL): 5 Procedure in detail: The patient was placed supine on the operating room table and underwent general LMA anesthesia. He was prepped and draped in the usual fashion. A transverse incision was made overlying the right internal ring and carried down to the level of the external oblique. The external oblique was opened parallel with its fibers through the external ring. Michelle a large lipoma of the proximal thigh adjacent to the edge of the inguinal ligament. The cord structures were elevated. The cremaster was opened proximally and search made for an indirect sac. I identified a lipoma of the cord which I ligated the level the deep epigastric vessels and like tied it with 3 0 Vicryl ties. An indirect sac was identified and from surrounding structures. Pursestring of 2 0 silk was used to close it and then a is tie was placed with the same material.. The floor was examined and was found to be weak but intact. A patch was placed across the floor and tacked at the pubic tubercle, the posterior lamella of the anterior rectus sheath, the ilioinguinal ligament, and superior lateral to the cord. The opening was modified as necessary to prevent tight constriction of the cord. Sutures of 0 Ethibond were used to secure the mesh. The external oblique was closed with a running 3 0 Vicryl. I removed a small portion of the lipoma in the thigh so that it would not give the impression of a recurrence of his hernia. I did not attempt to remove the whole thing. It was soft and not well circumscribed. The subcu was closed with interrupted 3 0 Vicryl. The skin was closed with a running 4 0 Vicryl subcuticular stitch and Steri-Strips. Dressing was applied, the patient was awakened, and the patient was taken to the recovery area in good condition. Complications: none Post-operative Condition: stable Disposition: PACU Plan for aftercare: Follow-up in the office
[2020-01-12] MEDS: OXYCODONE/ACETAMINOPHEN 5/325 TABLET 1 TAB PO ×2 (14:50→15:20)
== END 2020-01-12 15:40 | disposition home or self-care (01) ==
PROVIDERS: PCP Nurse Practitioner Family; Referring Provider Specialist; Visit Provider Specialist
PROC: (CPT 49505; principal; 2020-01-12 13:00)
DX: K40.90 Unilateral inguinal hernia, without obstruction or gangrene, not specified as recurrent (principal); I48.0 Paroxysmal atrial fibrillation; I50.9 Heart failure, unspecified; I11.0 Hypertensive heart disease with heart failure
CPT/HCPCS: 49505; C1781; J0690; J1100; J2250; J2405; J2704; J3010

== ENCOUNTER → 2020-06-30 07:16 | Outpatient (CLI) | payer MEDICARE, OTHER, SELFPAY ==
[2020-06-30 08:39] LABS: Blood Urea Nitrogen 16 mg/dL (9-20); Calcium 9.1 mg/dL (8.4-10.2); Carbon Dioxide 31 mmol/L (22-32); Chloride 105 mmol/L (98-107); Estimated Glomerular Filt Rate > 60.0 mL/min (>60); Glucose 100 mg/dL (80-110); HEMOLYSIS 16 (0-50); Sodium 141 mmol/L (137-145)
== END ==
PROVIDERS: PCP Nurse Practitioner Family; Referring Provider Nurse Practitioner; Visit Provider Nurse Practitioner
DX: I50.22 Chronic systolic (congestive) heart failure (principal)
CPT/HCPCS: 36415; 80048

== ENCOUNTER → 2020-08-11 07:46 | Outpatient (CLI) | payer MEDICARE, OTHER, SELFPAY ==
--- NOTE | 2020-08-11 07:49 | DI.US.S_ITS ---
PROCEDURE: US ABD AORTA ANEURYSM SCREEN INDICATIONS: screen TECHNIQUE: Real time scanning was performed of the aorta and iliac arteries, with image documentation. COMPARISON: None. FINDINGS: Aorta: Proximal aortic diameter measures 2.5 cm. Mid-aorta measures 1.9 cm. Distal aortic diameter is 1.8 cm. Iliac arteries: Right common iliac artery measures 1.2 cm. Left common iliac artery measures 1.3 cm. IMPRESSION: Normal examination. Dictated by: Maurisio Amos M.D. on 08/11/2020 at 9:20 Approved by: Maurisio Amos M.D. on 08/11/2020 at 9:20
== END ==
PROVIDERS: PCP Nurse Practitioner Family; Referring Provider Nurse Practitioner Family; Visit Provider Nurse Practitioner Family
DX: Z13.6 Encounter for screening for cardiovascular disorders (principal)
CPT/HCPCS: 76706

== ENCOUNTER → 2020-08-19 08:52 | Outpatient (CLI) | payer MEDICARE, OTHER, SELFPAY ==
[2020-08-19 09:47] LABS: Cholesterol 117 mg/dL (140-199); HDL Cholesterol 40 mg/dL (40-60); LDL Cholesterol Calculated 63 mg/dL (<100); Triglycerides 71 mg/dL (35-150)
[2020-08-19 10:18] LABS: Prostate Specific Antigen Scrn 2.49 ng/mL (0.1-4.0)
[2020-08-20 12:10] LABS: Fecal Immunochemical Test Negative (Negative)
== END ==
PROVIDERS: PCP Nurse Practitioner Family; Referring Provider Nurse Practitioner Family; Visit Provider Nurse Practitioner Family
DX: Z13.220 Encounter for screening for lipoid disorders (principal); Z12.5 Encounter for screening for malignant neoplasm of prostate; Z12.11 Encounter for screening for malignant neoplasm of colon
CPT/HCPCS: 36415; 80061; 82274; G0103

== ENCOUNTER → 2020-10-27 16:45 | Outpatient (CLI) | payer MEDICARE, OTHER, SELFPAY ==
[2020-10-27] MEDS: COVID-19 VACC #1, MRNA(MOD) 100 MCG/0.5 ML VIAL IM (16:52)
== END ==
PROVIDERS: PCP Nurse Practitioner Family; Visit Provider Internal Medicine
DX: Z23 Encounter for immunization (principal)
CPT/HCPCS: 0011A; 91301

== ENCOUNTER → 2020-11-24 14:11 | Outpatient (CLI) | payer MEDICARE, OTHER, SELFPAY ==
[2020-11-24] MEDS: COVID-19 VACC #2, MRNA(MOD) 100 MCG/0.5 ML VIAL IM (14:17)
== END ==
PROVIDERS: PCP Nurse Practitioner Family; Visit Provider Internal Medicine
DX: Z23 Encounter for immunization (principal)
CPT/HCPCS: 0012A; 91301

== ENCOUNTER → 2021-11-09 12:36 | Outpatient (CLI) | payer MEDICARE, OTHER, SELFPAY ==
[2021-11-09 13:07] LABS: Add Manual Diff / Slide Review NO; Basophils Absolute Auto 100 /uL (0-100); Basophils Percent Auto 0.7 % (0-2); Eosinophils Absolute Auto 100 /uL (0-450); Eosinophils Percent Auto 0.7 % (2-4); Hematocrit 45.5 % (41-53); Hemoglobin 15.5 g/dL (13.5-17.5); Lymphocytes Absolute Auto 2200 /uL (1100-4500); Lymphocytes Percent Auto 23.3 % (25-40); Mean Corpuscular Volume 91.1 fL (80-100); Monocytes Absolute Auto 800 /uL (0-900); Neutrophils Absolute Auto 6500 /uL (1500-7000); Neutrophils Percent Auto 67.3 % (50-75); Platelet Count 230 X10^3/uL (150-400); Red Cell Distribution Width 13.5 % (11.6-14.8); White Blood Cell Count 9.6 X10^3/uL (4.5-11.0)
[2021-11-09 13:22] LABS: Alanine Aminotransferase 57 IU/L (<50); Albumin 4.7 g/dL (3.5-5.0); Alkaline Phosphatase 67 U/L (38-126); Aspartate Aminotransferase 36 IU/L (17-59); BUN Creatinine Ratio 23.7 (6-22); Bilirubin Total 0.9 mg/dL (0.2-1.3); Blood Urea Nitrogen 27 mg/dL (9-20); Calcium 9.2 mg/dL (8.4-10.2); Carbon Dioxide 28 mmol/L (22-32); Chloride 107 mmol/L (98-107); Estimated Glomerular Filt Rate > 60 mL/min (>60); Globulin 2.4 g/dL (1.7-4.1); Glucose 79 mg/dL (80-110); HEMOLYSIS < 15 (0-50); Potassium 4.6 mmol/L (3.4-5.1); Sodium 143 mmol/L (137-145); Total Protein 7.1 g/dL (6.3-8.2)
[2021-11-09 14:04] LABS: Thyroid Stimulating Hormone 4.16 uIU/mL (0.47-4.68)
== END ==
PROVIDERS: PCP Nurse Practitioner Family; Referring Provider Nurse Practitioner; Visit Provider Nurse Practitioner
DX: I48.19 Other persistent atrial fibrillation (principal)
CPT/HCPCS: 36415; 80053; 84443; 85025

== ENCOUNTER 2021-11-11 17:15 | Emergency (ER) | payer MEDICARE, OTHER, SELFPAY ==
[2021-11-11] VITALS (56 sets, daily range): BP systolic 102–130; BP diastolic 57–94; PULSE 66–154; RESP 10–22; TEMP 35.8; O2SAT 92–99; BMI 24.4
--- NOTE | 2021-11-11 17:27 | DI.RAD.S_ITS ---
PROCEDURE: XR CHEST 1V INDICATIONS: chest pain TECHNIQUE: One view of the chest was acquired. COMPARISON: [facility], CR, XR CHEST 1V, 03/12/2019, 8:38. FINDINGS: Surgical changes and devices: None. Lungs and pleura: Lungs are clear. No pleural effusions or pneumothorax. Mediastinum: Mediastinal contours appear normal. Heart size is normal. Bones and chest wall: No suspicious bony lesions. Overlying soft tissues appear unremarkable. IMPRESSION: No acute cardiopulmonary findings Approved by: Feng Vela M.D. on 11/11/2021 at 17:22
--- NOTE | 2021-11-11 18:11 | ED.CHESTPAIN ---
HPI - Chest Pain General Chief Complaint: Chest Pain Stated Complaint: Heart Racing, HX AFIB Time Seen by Provider: 11/11/21 17:55 Source: patient Mode of arrival: Ambulatory Limitations: no limitations History of Present Illness HPI narrative: Patient is a 71-year-old male. Has a history of paroxysmal atrial fibrillation. His on metoprolol and apixaban. Has had an ablation in the past. Since his ablation he has not had any issues with AFib. Several days ago he started have episodes where he felt like his heart was beating fast. These are all self-limiting. It happened multiple times over the past several days. Earlier today he contacted his bending roll hand office and was told that if the symptoms return he should come to the emergency department. Earlier this afternoon he noticed that his heart was beating fast. He is having some chest pressure with this. No shortness of breath. No lightheadedness. He has taken his medications today. He states that over the past couple days he has taken an extra dose of his metoprolol because of his presenting symptoms although he did not do that today. Related Data Home Medications Medication Instructions Recorded Confirmed spironolactone 25 mg tablet 12.5 mg PO QDAY #0 04/20/16 08/06/20 (Aldactone) apixaban 5 mg tablet (Eliquis) 5 mg PO BID 08/19/19 08/06/20 Previous Rx's Medication Instructions Recorded metoprolol succinate 25 mg 25 mg PO BEDTIME #90 tab 10/20/20 tablet,extended release 24 hr (Toprol XL) atorvastatin 40 mg tablet 40 mg PO BEDTIME #90 tab 08/01/21 amiodarone 200 mg tablet 200 mg PO DAILY #60 tab 11/11/21 Allergies Allergy/AdvReac Type Severity Reaction Status Date / Time No Known Drug Allergies Allergy Verified 08/06/20 10:02 Review of Systems Review of Systems ROS Unobtainable: All systems reviewed & are unremarkable except as noted in HPI and below Constitutional Constitutional: Reports system reviewed and no additional complaints, except as documented Cardiovascular Cardiovascular: Reports system reviewed and no additional complaints, except as documented Respiratory Respiratory: Reports system reviewed and no additional complaints, except as documented Gastrointestinal Gastrointestinal: Reports system reviewed and no additional complaints, except as documented Musculoskeletal Musculoskeletal: Reports system reviewed and no additional complaints, except as documented Integumentary/Breasts Skin/Breast: Reports system reviewed and no additional complaints, except as documented Neurologic Neurologic: Reports system reviewed and no additional complaints, except as documented Hematologic/Lymphatic On Anticoagulants: Yes Allergic/Immunologic Allergic/Immunologic: Reports system reviewed and no additional complaints, except as documented Patient History Medical History Atrial fibrillation with rapid ventricular response Cardiomyopathy Chronic systolic heart failure Headache HTN (hypertension) Palpitations Paroxysmal atrial fibrillation QT prolongation Shortness of breath Sinus bradycardia SVT (supraventricular tachycardia) Surgical History Anesthesia History of radiofrequency ablation procedure for cardiac arrhythmia Left inguinal hernia (2014) Family History Father Diabetes mellitus Social History household members: significant other Smoking Status: Never smoker second hand exposure: No alcohol intake: never substance use type: does not use Smoking Status: Never smoker alcohol intake frequency: other Substance Use Type: does not use Exam Initial Vital Signs Initial Vital Signs: Vital Signs Temperature 96.5 F L 11/11/21 17:20 Pulse Rate 154 H 11/11/21 17:20 Respiratory Rate 20 11/11/21 17:20 Blood Pressure 130/84 11/11/21 17:20 Pulse Oximetry 97 11/11/21 17:20 Const General: cooperative, comfortable and well developed HENCA Head: normal to inspection and normocephalic Chest Chest: normal inspection of the chest Resp Effort & Inspection: normal respiratory effort Auscultation: clear to auscultation bilaterally Cardio Rate: tachycardic Rhythm: regular rhythm GI Inspection: normal to inspection Skin General: no rashes or lesions noted Neuro General: patient alert, patient awake, patient oriented x3 and moves all extremities Extrem General: normal to inspection and capillary refill normal Psych Appearance: grossly normal and well kempt Procedures Cardioversion Consent Signed: Yes Indication: AFib with RVR Stability: Stable Number of attempts (shocks): 1 Joules used: 120 Cardiac rhythm post-cardioversion: Rate controlled AFib Procedural Sedation Consent signed: Yes Time out performed: Yes Indication: cardioversion Presedation Evaluation: See HPI Preparation: portable track line marker applied, capnometry used, supplemental O2 applied, suction/airway equipment at bedside and IV secured Fentanyl: IV Fentanyl dose (mcg): 25 IV Propofol dose (mg): 60 ED Sedation Level: Moderate (Concious) Patient Tolerated Procedure: No complications Complications: none Scores GCS Talmage coma scale eye opening: Spontaneous Dom coma scale verbal response: Orientated Dom coma scale motor response: Obey commands Dom coma scale total score: 15 Course Orders Ordered: Discontinued Medications Amiodarone HCl (Amiodarone 200 Mg Tablet) 400 mg PO NOW ONE Stop: 11/11/21 22:28 Last Admin: 11/11/21 22:37 Dose: 400 mg Documented by: GERARDO Fentanyl (Fentanyl 100 Mcg/2 Ml Inj) 25 mcg IV NOW ONE Stop: 11/11/21 18:12 Last Admin: 11/11/21 19:40 Dose: 25 mcg Documented by: RICHARDSON Sodium Chloride (Normal Saline 0.9%) 1,000 mls @ 125 mls/hr IV CONT FLORES Last Infusion: 11/11/21 22:05 Dose: 0 mls/hr Documented by: Admin: 11/11/21 18:31 Dose: 125 mls/hr Documented by: RICHARDSON Propofol (Propofol 200 Mg/20 Ml Vial) 100 mg IV NOW ONE Stop: 11/11/21 18:12 Last Admin: 11/11/21 19:43 Dose: 60 mg Documented by: RICHARDSON Vital Signs Vital signs: Vital Signs - 8 hr 11/11/21 21:50 11/11/21 21:55 11/11/21 22:00 Pulse Rate 75 73 73 Respiratory Rate 13 15 19 Blood Pressure 113/79 115/70 Pulse Oximetry 98 98 98 11/11/21 22:01 11/11/21 22:30 Pulse Rate 73 76 Respiratory Rate 20 17 Blood Pressure 125/81 Pulse Oximetry 98 97 MDM - Chest Pain Lab Data Attestation: I reviewed the patient's lab results. Result diagrams: 11/11/21 17:42 11/11/21 17:42 Labs: Lab Results 11/11/21 11/11/21 11/11/21 Range/Units 17:42 17:42 17:45 WBC 10.2 (4.5-11.0) X10^3/uL RBC 4.85 (4.5-5.9) X10^6/uL Hgb 15.1 (13.5-17.5) g/dL Hct 44.1 (41-53) % MCV 90.9 (80-100) fL MCH 31.1 (26-34) PG MCHC 34.2 (30-36) % RDW 13.5 (11.6-14.8) % Plt Count 218 (150-400) X10^3/uL Neut % (Auto) 68.7 (50-75) % Lymph % (Auto) 22.7 L (25-40) % Pepin % (Auto) 6.3 (3-14) % Eos % (Auto) 1.4 L (2-4) % Baso % (Auto) 0.9 (0-2) % Neut # (Auto) 7000 (1737-6871) /uL Lymph # (Auto) 2300 (7379-9202) /uL Pepin # (Auto) 600 (0-900) /uL Eos # (Auto) 100 (0-450) /uL Baso # (Auto) 100 (0-100) /uL Sodium 144 (137-145) mmol/L Potassium 4.1 (3.4-5.1) mmol/L Chloride 109 H (98-107) mmol/L Carbon Dioxide 25 (22-32) mmol/L BUN 25 H (9-20) mg/dL Creatinine 1.08 (0.66-1.25) mg/dL Estimated GFR > 60 (>60) mL/min BUN/Creatinine Ratio 23.1 H (6-22) Glucose 110 (80-110) mg/dL Calcium 9.0 (8.4-10.2) mg/dL Magnesium 1.9 (1.6-2.3) mg/dL Total Bilirubin 0.9 (0.2-1.3) mg/dL AST 31 (17-59) IU/L ALT 66 H (<50) IU/L Alkaline Phosphatase 72 (38-126) U/L Total Creatine Kinase 100 (55-170) U/L CK-MB (CK-2) TNP CK-MB (CK-2) Rel Index TNP Troponin I 0.012 (0.01-0.034) ng/mL NT-Pro-B Natriuret Pep 1690 H (<125) pg/mL Total Protein 7.1 (6.3-8.2) g/dL Albumin 4.5 (3.5-5.0) g/dL Globulin 2.6 (1.7-4.1) g/dL Albumin/Globulin Ratio 1.7 (1.0-2.8) Lipase 43 (23-300) U/L SARS-CoV-2 (PCR) Negative (Negative) Imaging Data Chest x-ray: Radiologist's Impression: [address] [address] XRay Report Signed Patient: Omar Vargas MR#: [id number] : 1950 Acct:[id number] Age/Sex: 71 / M Date of Service: 11/11/21 Loc: ED Accession Number: [id number] ?? Procedure: XR chest 1V Ordering Provider: Sheila Putnam D.O. PROCEDURE:? XR CHEST 1V ? INDICATIONS:? chest pain ? TECHNIQUE:? One view of the chest was acquired.? ? COMPARISON:? [facility], CR, XR CHEST 1V, 03/12/2019, 8:38. ? FINDINGS:? ? Surgical changes and devices:? None.? ? Lungs and pleura:? Lungs are clear.? No pleural effusions or pneumothorax.? ? Mediastinum:? Mediastinal contours appear normal.? Heart size is normal.? ? Bones and chest wall:? No suspicious bony lesions.? Overlying soft tissues appear unremarkable.? ? IMPRESSION:? No acute cardiopulmonary findings ? ? ? Approved by: Feng Vela M.D. on 11/11/2021 at 17:22? ECG Data Attestation: I personally reviewed and interpreted this ECG as follows: Interpretation: Presentation EKG Tachycardic Ventricular rate 153 Left axis deviation QRS 1 3 milliseconds QTC 5-6 milliseconds When EKG was slowed rhythm consistent with a flutter Post cardioversion EKG Atrial fibrillation Ventricular rate is [address] T wave changes MDM Narrative Medical decision making narrative: Patient has a history of atrial fibrillation and upon arrival had an EKG that had a rate of 153 but was regular. When the EKG was slow down the rhythm was consistent with a flutter. Patient has been taking his medications as directed. He is having some chest discomfort but otherwise his blood pressure is unremarkable and he is not having any shortness of breath. We discussed options to include rate control versus rhythm control to include sedation and cardioversion. Patient is on anticoagulation and has been on it for longer than 4 weeks. After the discussion the patient opted for the cardioversion. He was sedated and cardioverted as described above. The sedation had no complications. After the cardioversion patient's rate was 60s to 70s. Blood pressure was 110's-120's. Patient did have occasional sinus beats on the post cardioversion EKG however also had obvious signs of continued AFib and PVCs. When patient recovered from the cardioversion he stated that he felt much better. His chest discomfort had resolved. He was no longer having the palpitations. I did discuss the case with Dr. Tidwell who was on-call for the patient's bending roll hand. Plan will be is to start the patient on amiodarone. He was given amiodarone here in the emergency department with instructions to take 2 tablets every morning for the next week and then 1 tablet every morning until he was instructed to stop by his bending roll hand. He was also given strict return precautions. Patient expressed understanding and agreement. Discharge Plan Departure Patient Disposition: Home Clinical Impression: Atrial fibrillation Instructions: DI for Cardioversion Activity Restrictions/Additional Instructions: Continue to take all of your medications as directed to include only taking metoprolol 1 time a day. On Sunday contact your bending roll hand office for a follow-up. Be sure to continue to take your Eliquis 2 times a day. We are going to start you on a new medication called amiodarone. Each pill of this medication is 200 mg. Tomorrow (11/12/21) start taking 2 tablets every morning. After 1 week of this start taking 1 tablet every morning until your told to change this by your bending roll hand. Return to the emergency department for any new or worsening symptoms You can look up ?Eliquis co-pay card ?on the Internet and this may help you get your Eliquis for 10 dollars a month. Prescriptions: New amiodarone 200 mg tablet 200 mg PO DAILY Qty: 60 0RF No Action spironolactone [Aldactone] 25 MG tablet 12.5 mg PO QDAY Qty: 0 0RF metoprolol succinate [Toprol XL] 25 mg tablet extended release 24 hr 25 mg PO BEDTIME Qty: 90 1RF atorvastatin 40 mg tablet 40 mg PO BEDTIME Qty: 90 3RF Eliquis 5 mg tablet 5 mg PO BID 0RF Referrals: Marbin Nieto ARNP [Primary Care Provider] -
[2021-11-11 18:13] LABS: Alanine Aminotransferase 66 IU/L (<50); Albumin 4.5 g/dL (3.5-5.0); Albumin Globulin Ratio 1.7 (1.0-2.8); Alkaline Phosphatase 72 U/L (38-126); Aspartate Aminotransferase 31 IU/L (17-59); BUN Creatinine Ratio 23.1 (6-22); Bilirubin Total 0.9 mg/dL (0.2-1.3); Blood Urea Nitrogen 25 mg/dL (9-20); Carbon Dioxide 25 mmol/L (22-32); Chloride 109 mmol/L (98-107); Creatine Kinase 100 U/L (55-170); Estimated Glomerular Filt Rate > 60 mL/min (>60); Globulin 2.6 g/dL (1.7-4.1); Glucose 110 mg/dL (80-110); HEMOLYSIS < 15 (0-50); Lipase 43 U/L (23-300); Magnesium 1.9 mg/dL (1.6-2.3); Potassium 4.1 mmol/L (3.4-5.1); Sodium 144 mmol/L (137-145); Total Protein 7.1 g/dL (6.3-8.2)
[2021-11-11 18:18] LABS: Add Manual Diff / Slide Review NO; Basophils Absolute Auto 100 /uL (0-100); Basophils Percent Auto 0.9 % (0-2); Eosinophils Absolute Auto 100 /uL (0-450); Eosinophils Percent Auto 1.4 % (2-4); Hematocrit 44.1 % (41-53); Hemoglobin 15.1 g/dL (13.5-17.5); Lymphocytes Absolute Auto 2300 /uL (1100-4500); Lymphocytes Percent Auto 22.7 % (25-40); Mean Corpuscular HGB Conc 34.2 % (30-36); Mean Corpuscular Hemoglobin 31.1 PG (26-34); Mean Corpuscular Volume 90.9 fL (80-100); Monocytes Absolute Auto 600 /uL (0-900); Monocytes Percent Auto 6.3 % (3-14); Neutrophils Absolute Auto 7000 /uL (1500-7000); Neutrophils Percent Auto 68.7 % (50-75); Platelet Count 218 X10^3/uL (150-400); Red Blood Cell Count 4.85 X10^6/uL (4.5-5.9); Red Cell Distribution Width 13.5 % (11.6-14.8); White Blood Cell Count 10.2 X10^3/uL (4.5-11.0)
[2021-11-11 18:24] LABS: NT-proBNP (BNP-Adult 18+) 1690 pg/mL (<125); Troponin I 0.012 ng/mL (0.01-0.034)
[2021-11-11 18:25] LABS: COVID19 -Nasal RAPID Negative (Negative)
[2021-11-11] MEDS: SODIUM CHLORIDE 0.9% 1,000 ML 125 ML IV (18:31)
[2021-11-11] MEDS: fentaNYL 100 MCG/2 ML INJ 25 MCG IV (19:40)
[2021-11-11] MEDS: propofoL 200 MG/20 ML VIAL 100 MG IV (19:43)
--- NOTE | 2021-11-11 20:29 | PC.NURSE ---
pt resting with eyes closed resp even and unlabored
--- NOTE | 2021-11-11 21:15 | PC.NURSE ---
pt awake and alert, states he was unaware the procedure had already been done, waiting disposition, updated pt on plan of care
--- NOTE | 2021-11-11 22:04 | PC.NURSE ---
pt ambulatory to bathroom, gait steady,
[2021-11-11] MEDS: AMIODARONE 200 MG TABLET 400 MG PO (22:37)
== END 2021-11-11 22:53 | disposition home or self-care (01) ==
PROVIDERS: Emergency Medicine; Emergency Provider Emergency Medicine; PCP Nurse Practitioner Family
DX: I48.91 Unspecified atrial fibrillation (principal); Z79.01 Long term (current) use of anticoagulants; Z20.822 Contact with and (suspected) exposure to COVID-19
CPT/HCPCS: 36415; 71045; 80053; 82550; 83690; 83735; 83880; 84484; 85025; 87635; 92960; 93005; 96374; 99152; 99284; 99285; C9803; J2704; J3010

== ENCOUNTER → 2021-11-18 08:03 | Outpatient (CLI) | payer MEDICARE, OTHER, SELFPAY ==
[2021-11-18 08:59] LABS: Alanine Aminotransferase 38 IU/L (<50); Albumin 3.8 g/dL (3.5-5.0); Albumin Globulin Ratio 1.5 (1.0-2.8); Alkaline Phosphatase 82 U/L (38-126); Aspartate Aminotransferase 25 IU/L (17-59); Bilirubin Total 0.6 mg/dL (0.2-1.3); Bilirubin Unconjugated 0.7 mg/dL (0.0-1.1); Blood Urea Nitrogen 17 mg/dL (9-20); Calcium 8.5 mg/dL (8.4-10.2); Carbon Dioxide 31 mmol/L (22-32); Chloride 108 mmol/L (98-107); Estimated Glomerular Filt Rate > 60 mL/min (>60); Globulin 2.5 g/dL (1.7-4.1); Glucose 95 mg/dL (80-110); HEMOLYSIS < 15 (0-50); Potassium 4.5 mmol/L (3.4-5.1); Sodium 144 mmol/L (137-145); Total Protein 6.3 g/dL (6.3-8.2)
[2021-11-18 09:53] LABS: Free T4, Direct Thyroxine 1.39 ng/dL (0.78-2.19)
[2021-11-18 10:07] LABS: Thyroid Stimulating Hormone 7.37 uIU/mL (0.47-4.68)
[2021-11-18 22:38] LABS: Triiodothyronine T3 Total 88 ng/dL (71-180)
== END ==
PROVIDERS: PCP Nurse Practitioner Family; Referring Provider Nurse Practitioner; Visit Provider Nurse Practitioner
DX: I48.91 Unspecified atrial fibrillation (principal)
CPT/HCPCS: 36415; 80048; 80076; 84439; 84443; 84480

== ENCOUNTER → 2022-08-30 08:23 | Outpatient (CLI) | payer MEDICARE, OTHER, SELFPAY ==
[2022-08-30 09:42] LABS: Hemoglobin A1C% w Est Avg Glu 5.5 % (4.0-6.0)
[2022-08-30 09:53] LABS: BUN Creatinine Ratio 16.3 (6-22); Blood Urea Nitrogen 15 mg/dL (9-20); Calcium 8.9 mg/dL (8.4-10.2); Carbon Dioxide 28 mmol/L (22-32); Chloride 100 mmol/L (98-107); Cholesterol 174 mg/dL (140-199); Estimated Glomerular Filt Rate > 60 mL/min (>60); Glucose 110 mg/dL (80-110); HDL Cholesterol 42 mg/dL (40-60); HEMOLYSIS < 15 (0-50); LDL Cholesterol Calculated 110 mg/dL (<100); Potassium 4.3 mmol/L (3.4-5.1); Sodium 139 mmol/L (137-145); Triglycerides 109 mg/dL (35-150)
[2022-08-30 10:27] LABS: TSH w/ Reflex to FT4 3.66 uIU/mL (0.47-4.68)
== END ==
PROVIDERS: PCP Family Medicine; Referring Provider Family Medicine; Visit Provider Family Medicine
DX: E03.8 Other specified hypothyroidism (principal); E78.5 Hyperlipidemia, unspecified; I48.91 Unspecified atrial fibrillation
CPT/HCPCS: 36415; 80048; 80061; 83036; 84443

== ENCOUNTER 2023-05-13 23:38 | Emergency (ER) | payer MEDICARE, OTHER, SELFPAY ==
[2023-05-13 23:50] VITALS: BP 118/89; PULSE 160; RESP 15; RESP 20; TEMP 36; O2SAT 100; O2SAT 99; BMI 24.7
--- NOTE | 2023-05-13 23:52 | DI.RAD.S_ITS ---
PROCEDURE: XR CHEST 1V INDICATIONS: Arrhythmia. TECHNIQUE: One view of the chest was acquired. COMPARISON: [facility], , XR CHEST 1V, 11/11/2021, 18:09. FINDINGS: Surgical changes and devices: Defibrillator pads and monitoring devices. Lungs and pleura: Lungs are clear. No pleural effusions or pneumothorax. Mediastinum: Mediastinal contours appear normal. Heart size is normal. Bones and chest wall: No suspicious bony lesions. Overlying soft tissues appear unremarkable. IMPRESSION: Given overlying monitoring devices and defibrillator pads, normal radiograph the chest. Dictated by: Shoshana Hi M.D. on 05/14/2023 at 1:31 Approved by: Shoshana Hi M.D. on 05/14/2023 at 1:31
--- NOTE | 2023-05-13 23:55 | ED.ARRPALP ---
HPI - Arrhythmia/Palpitations General Chief Complaint: Arrhythmia/Palpitations Stated Complaint: HEART RACING Time Seen by Provider: 05/13/23 23:44 Source: patient Mode of arrival: Ambulatory Limitations: no limitations History of Present Illness HPI narrative: 72-year-old male with known history of atrial fibrillation, on Eliquis, metoprolol, spironolactone, atorvastatin magnesium. Patient states he has been tachycardic in the 120s for about 2 weeks, I went for a cardioversion on Sunday he states that they canceled and rescheduled him for a SHARAD for this upcoming as he states he could not be sure that he has been taking his Eliquis every day. Patient states they did increase his metoprolol this pack week from 25 mg to 50 and then 100 mg twice daily. He has been on 100 mg twice daily for the past 2 days and states he had his 7:00 a.m. and 7:00 p.m. doses. Patient states he is had some chest pressure, it is worse this evening with his heart rate elevated. He states he was 140s before he went to bed, he woke up from sleep and was having some more pressure, he denies any syncope or lightheadedness. He has been a little sweaty on and off. He denies any nausea or vomiting. Patient states occasionally shortness of breath but not persistently. Just when his heart rate is quite elevated. Patient states no new swelling in his extremities. He denies any recent diarrhea, no black or bloody stools. He has been mildly constipated. But passing flatus regularly. Patient states he is had cardiac ablation but no stents or other interventions. No known drug allergies. Denies tobacco, alcohol or illicit. He follows with Cardiology through Dr. Ani Hebert through [facility]. Patients primary care was Marian Nieto. Related Data Home Medications Medication Instructions Recorded Confirmed spironolactone 25 mg tablet 12.5 mg PO QDAY ##0 04/20/16 04/21/23 (Aldactone) apixaban 5 mg tablet (Eliquis) 5 mg PO BID 08/19/19 04/21/23 Previous Rx's Medication Instructions Recorded metoprolol succinate 25 mg 25 mg PO BEDTIME #90 tabs 10/20/20 tablet,extended release 24 hr (Toprol XL) atorvastatin 40 mg tablet 40 mg PO BEDTIME #90 tabs 08/01/21 Allergies Allergy/AdvReac Type Severity Reaction Status Date / Time No Known Drug Allergies Allergy Verified 04/21/23 11:14 Review of Systems Review of Systems ROS Unobtainable: All systems reviewed & are unremarkable except as noted in HPI and below Patient History Medical History Subclinical hypothyroidism Hyperlipidemia Chronic systolic heart failure Cardiomyopathy QT prolongation HTN (hypertension) Sinus bradycardia SVT (supraventricular tachycardia) Headache Shortness of breath Paroxysmal atrial fibrillation Surgical History Anesthesia History of radiofrequency ablation procedure for cardiac arrhythmia Left inguinal hernia (2014) Family History Father Diabetes mellitus Social History household members: significant other Smoking Status: Never smoker second hand exposure: No alcohol intake: never substance use type: does not use Smoking Status: Never smoker alcohol intake frequency: other Substance Use Type: does not use Exam Narrative Exam Narrative: GENERAL: Alert and oriented x three, male in mild distress. No diaphoresis. HEENT: Head normocephalic, atraumatic, EOMI, pupils reactive, face symmetric, moist mucous membranes NECK: Supple, full range of motion CARDIOVASCULAR: Tachycardic and Regular rate and rhythm without murmurs, rubs or gallops. No JVD. No swelling bilateral lower extremities. 2+ bilateral lower extremities. RESPIRATORY: Breath sounds equal bilaterally, no wheezes rales or rhonchi. No tachypnea or accessory muscle use. Speaks in full sentences. ABDOMEN: Soft, nontender. Nondistended. Normoactive bowel sounds all 4 quadrants. No guarding or rebound, rigidity, no mass : No CVA tenderness EXTREMITIES: Normal range of motion, no clubbing or edema. Neurovascularly intact NEUROLOGICAL: Cranial nerves II through XII grossly intact. Moving all extremities SKIN: Warm, dry, no petechiae, no rashes or lesions. Initial Vital Signs Initial Vital Signs: Vital Signs Temperature 96.8 F L 05/13/23 23:50 Pulse Rate 160 H 05/13/23 23:50 Respiratory Rate 20 05/13/23 23:50 Blood Pressure 118/89 05/13/23 23:50 Pulse Oximetry 100 05/13/23 23:50 Oxygen Delivery Method Room Air 05/13/23 23:50 Course Orders Ordered: ED Orders 05/13/23 23:50 Complete Blood Count AUTO DIFF Stat Comprehensive Metabolic Panel Stat Free T4, Direct Thyroxine Stat Lipase Stat MAG [Magnesium] Stat NT-proBNP (BNP-Adult 18+) Stat PTT Partial Thromboplastin Henri Stat Prothrombin Time INR Stat TSH w/ Reflex to FT4 Stat Troponin & CK Cardiac Panel Stat 05/13/23 23:52 XR chest 1V Stat 05/14/23 01:12 Chest [XR chest 1V] Stat Discontinued Medications Digoxin (Digoxin 500 Mcg/2 Ml Ampul) 500 mcg IV NOW ONE Stop: 05/14/23 01:57 Last Admin: 05/14/23 02:13 Dose: 500 mcg Diltiazem HCl (Diltiazem 5 Mg/Ml Sdv) 10 mg IV NOW ONE Stop: 05/13/23 23:53 Last Admin: 05/14/23 00:08 Dose: 10 mg Documented By: ALFREDO Etomidate (Etomidate 2 Mg/Ml 10 Ml Vial) 8 mg IV NOW ONE Stop: 05/14/23 00:11 Last Admin: 05/14/23 02:55 Dose: Not Given Furosemide (Furosemide 40 Mg/4 Ml Vial) 40 mg IV NOW ONE Stop: 05/14/23 01:13 Last Admin: 05/14/23 01:39 Dose: 40 mg Sodium Chloride (Normal Saline 0.9%) 1,000 mls @ 1,000 mls/hr IV BOLUS ONE Stop: 05/14/23 00:51 Last Infusion: 05/14/23 00:32 Dose: Infused Documented By: Admin: 05/14/23 00:07 Dose: 1,000 mls/hr Documented By: SB DILTIAZEM (Diltiazem 125 Mg/125 Ml-D5w) 125 mg in 125 mls @ 5 mls/hr IV TITRATE FLORES; Protocol Sodium Chloride (Normal Saline 0.9%) 1,000 mls @ 1,000 mls/hr IV BOLUS ONE Stop: 05/14/23 01:24 Last Admin: 05/14/23 00:15 Dose: 1,000 mls/hr Documented By: ALFREDO Sodium Chloride (Normal Saline 0.9%) 1,000 mls @ 1,000 mls/hr IV BOLUS ONE Stop: 05/14/23 01:27 Last Admin: 05/14/23 00:34 Dose: 1,000 mls/hr Documented By: ALFREDO Lorazepam (Lorazepam 2 Mg/Ml Inj) 0.5 mg IV NOW ONE Stop: 05/14/23 00:04 Last Admin: 05/14/23 00:07 Dose: 0.5 mg Documented By: ALFREDO Vital Signs Vital signs: Vital Signs - 8 hr 05/13/23 23:50 05/13/23 23:50 05/14/23 00:00 Temperature 96.8 F L Pulse Rate 160 H 160 H Respiratory Rate 20 15 Blood Pressure 118/89 109/80 Pulse Oximetry 100 99 Oxygen Delivery Method Room Air 05/14/23 00:00 05/14/23 00:08 05/14/23 00:08 Temperature Pulse Rate 158 H 160 H Respiratory Rate Blood Pressure 64/46 L 67/47 L Pulse Oximetry 98 Oxygen Delivery Method 05/14/23 00:08 05/14/23 00:09 05/14/23 00:09 Temperature Pulse Rate 159 H 159 H Respiratory Rate 18 14 Blood Pressure 69/49 L Pulse Oximetry 98 99 Oxygen Delivery Method 05/14/23 00:11 05/14/23 00:11 05/14/23 00:12 Temperature Pulse Rate 159 H Respiratory Rate 16 Blood Pressure 73/53 L 76/53 L Pulse Oximetry 97 Oxygen Delivery Method 05/14/23 00:12 05/14/23 00:13 05/14/23 00:13 Temperature Pulse Rate 159 H 155 H Respiratory Rate 20 12 Blood Pressure 80/57 L Pulse Oximetry 97 98 Oxygen Delivery Method 05/14/23 00:14 05/14/23 00:14 05/14/23 00:16 Temperature Pulse Rate 149 H Respiratory Rate 20 Blood Pressure 87/57 L 93/63 Pulse Oximetry 99 Oxygen Delivery Method 05/14/23 00:16 05/14/23 00:19 05/14/23 00:19 Temperature Pulse Rate 129 H 135 H Respiratory Rate 18 16 Blood Pressure 92/64 Pulse Oximetry 100 96 Oxygen Delivery Method 05/14/23 00:21 05/14/23 00:21 05/14/23 00:23 Temperature Pulse Rate 130 H Respiratory Rate 15 Blood Pressure 102/67 92/68 Pulse Oximetry 98 Oxygen Delivery Method 05/14/23 00:24 05/14/23 00:25 05/14/23 00:25 Temperature Pulse Rate 130 H 130 H Respiratory Rate 15 17 Blood Pressure 89/68 L Pulse Oximetry 100 100 Oxygen Delivery Method 05/14/23 00:26 05/14/23 00:27 05/14/23 01:06 Temperature Pulse Rate 130 H Respiratory Rate 18 Blood Pressure 93/73 102/74 Pulse Oximetry 100 Oxygen Delivery Method 05/14/23 01:06 05/14/23 01:11 05/14/23 01:11 Temperature Pulse Rate 133 H 133 H Respiratory Rate 16 16 Blood Pressure 98/68 Pulse Oximetry 88 L 92 Oxygen Delivery Method 05/14/23 01:17 05/14/23 01:17 05/14/23 01:21 Temperature Pulse Rate 134 H Respiratory Rate 18 Blood Pressure 100/69 98/69 Pulse Oximetry 95 Oxygen Delivery Method 05/14/23 01:21 05/14/23 01:24 05/14/23 01:24 Temperature Pulse Rate 133 H 134 H Respiratory Rate 20 24 Blood Pressure 100/68 Pulse Oximetry 96 94 Oxygen Delivery Method 05/14/23 01:30 05/14/23 01:30 05/14/23 01:33 Temperature Pulse Rate 138 H Respiratory Rate 18 Blood Pressure 97/67 102/69 Pulse Oximetry 95 Oxygen Delivery Method 05/14/23 01:33 05/14/23 01:37 05/14/23 01:37 Temperature Pulse Rate 135 H 135 H Respiratory Rate 19 20 Blood Pressure 103/56 L Pulse Oximetry 95 93 Oxygen Delivery Method 05/14/23 01:39 05/14/23 01:39 05/14/23 01:42 Temperature Pulse Rate 135 H Respiratory Rate 18 Blood Pressure 107/64 99/67 Pulse Oximetry 94 Oxygen Delivery Method 05/14/23 01:42 05/14/23 01:45 05/14/23 01:45 Temperature Pulse Rate 135 H 135 H Respiratory Rate 18 19 Blood Pressure 101/71 Pulse Oximetry 94 95 Oxygen Delivery Method 05/14/23 01:48 05/14/23 01:48 05/14/23 02:09 Temperature Pulse Rate 139 H Respiratory Rate 18 Blood Pressure 96/66 104/77 Pulse Oximetry 93 Oxygen Delivery Method 05/14/23 02:09 05/14/23 02:12 05/14/23 02:13 Temperature Pulse Rate 139 H 135 H Respiratory Rate 20 Blood Pressure 101/78 101/78 Pulse Oximetry 96 Oxygen Delivery Method 05/14/23 02:18 05/14/23 02:18 05/14/23 02:21 Temperature Pulse Rate 137 H 140 H Respiratory Rate 20 23 Blood Pressure 107/78 Pulse Oximetry 95 96 Oxygen Delivery Method 05/14/23 02:21 05/14/23 02:29 05/14/23 02:30 Temperature Pulse Rate 139 H Respiratory Rate 20 Blood Pressure 112/84 109/83 Pulse Oximetry 95 Oxygen Delivery Method 05/14/23 02:30 05/14/23 02:39 05/14/23 02:45 Temperature Pulse Rate 139 H 138 H Respiratory Rate 20 19 Blood Pressure 105/78 Pulse Oximetry 95 94 Oxygen Delivery Method 05/14/23 03:16 05/14/23 03:16 05/14/23 03:25 Temperature Pulse Rate 140 H 141 H Respiratory Rate 19 19 Blood Pressure 97/77 Pulse Oximetry 95 96 Oxygen Delivery Method 05/14/23 03:30 05/14/23 03:30 05/14/23 03:45 Temperature Pulse Rate 141 H 141 H Respiratory Rate 18 18 Blood Pressure 99/76 Pulse Oximetry 94 94 Oxygen Delivery Method 05/14/23 03:45 05/14/23 04:00 05/14/23 04:00 Temperature Pulse Rate 141 H Respiratory Rate 17 Blood Pressure 104/71 91/73 Pulse Oximetry 95 Oxygen Delivery Method 05/14/23 04:15 05/14/23 04:15 05/14/23 04:55 Temperature 97.8 F Pulse Rate 141 H Respiratory Rate 17 Blood Pressure 101/66 Pulse Oximetry 94 Oxygen Delivery Method MDM - Arrhythmia/Palpitations Lab Data 05/13/23 23:50 05/14/23 00:13 Labs: Lab Results 05/13/23 05/14/23 Range/Units 23:50 00:13 WBC 12.7 H (4.5-11.0) X10^3/uL RBC 5.20 (4.5-5.9) X10^6/uL Hgb 16.1 (13.5-17.5) g/dL Hct 47.8 (41-53) % MCV 92.1 (80-100) fL MCH 31.0 (26-34) PG MCHC 33.7 (30-36) % RDW 13.8 (11.6-14.8) % Plt Count 231 (150-400) X10^3/uL Neut % (Auto) 62.6 (50-75) % Lymph % (Auto) 28.3 (25-40) % [place] % (Auto) 7.6 (3-14) % Eos % (Auto) 0.8 L (2-4) % Baso % (Auto) 0.7 (0-2) % Neut # (Auto) 7900 H (2076-6969) /uL Lymph # (Auto) 3600 (4995-7826) /uL [place] # (Auto) 1000 H (0-900) /uL Eos # (Auto) 100 (0-450) /uL Baso # (Auto) 100 (0-100) /uL PT 22.1 H (10.1-12.7) SECONDS INR 1.9 H (0.9-1.3) APTT 34 (26-36) SECONDS Sodium 138 (137-145) mmol/L Potassium 4.9 (3.4-5.1) mmol/L Chloride 106 (98-107) mmol/L Carbon Dioxide 23 (22-32) mmol/L BUN 26 H (9-20) mg/dL Creatinine 1.22 (0.66-1.25) mg/dL Estimated GFR > 60 (>60) mL/min BUN/Creatinine Ratio 21.3 (6-22) Glucose 114 H (80-110) mg/dL Calcium 8.7 (8.4-10.2) mg/dL Magnesium 2.2 (1.6-2.3) mg/dL Total Bilirubin 0.8 (0.2-1.3) mg/dL AST 51 (17-59) IU/L ALT 75 H (<50) IU/L Alkaline Phosphatase 74 (38-126) U/L Total Creatine Kinase 65 (55-170) U/L Troponin I 0.016 (0.01-0.034) ng/mL NT-Pro-B Natriuret Pep 3790 H (<125) pg/mL Total Protein 6.5 (6.3-8.2) g/dL Albumin 3.9 (3.5-5.0) g/dL Globulin 2.6 (1.7-4.1) g/dL Albumin/Globulin Ratio 1.5 (1.0-2.8) Lipase 44 (23-300) U/L TSH 6.19 H (0.47-4.68) uIU/mL Free T4 1.24 (0.78-2.19) ng/dL Imaging Data Chest x-ray: Radiologist's Impresson: [address] [address] XRay Report Signed Patient: Omar Vargas MR#: [id number] : 1950 Acct:[id number] Age/Sex: 72 / M Date of Service: 05/13/23 Loc: ED Accession Number: [id number] Procedure: XR chest 1V Ordering Provider: Sheila Putnam D.O. PROCEDURE: XR CHEST 1V INDICATIONS: Arrhythmia. TECHNIQUE: One view of the chest was acquired. COMPARISON: [facility], , XR CHEST 1V, 11/11/2021, 18:09. FINDINGS: Surgical changes and devices: Defibrillator pads and monitoring devices. Lungs and pleura: Lungs are clear. No pleural effusions or pneumothorax. Mediastinum: Mediastinal contours appear normal. Heart size is normal. Bones and chest wall: No suspicious bony lesions. Overlying soft tissues appear unremarkable. IMPRESSION: Given overlying monitoring devices and defibrillator pads, normal radiograph the chest. Dictated by: Shoshana Hi M.D. on 05/14/2023 at 1:31 Approved by: Shoshana Hi M.D. on 05/14/2023 at 1:31 CXR2: Radiologist's Impresson: Close Chest X-Ray (Signed) Shoshana Hi - 05/14/23 Chest X-Ray (Signed) Shoshana Hi - 05/13/23 DI Result CC 11/15/21 Chest X-Ray (Signed) Feng Vela - 11/11/21 Abdominal Arterial Study US (Signed) Maurisio Amos - 08/11/20 DI Result CC 04/23/19 Chest CTA (Signed) Maurisio Amos - 03/13/19 Chest X-Ray (Signed) Lukas Lawton - 03/12/19 Telemetry Strips 03/12/19 Chest X-Ray (Signed) Maurisio Amos - 04/09/19 Telemetry Strips 05/21/17 Launch?Image [address] [address] XRay Report Signed Patient: Omar Vargas MR#: [id number] : 1950 Acct:[id number] Age/Sex: 72 / M Date of Service: 05/14/23 Loc: ED Accession Number: [id number] Procedure: XR chest 1V Ordering Provider: Sheila Putnam D.O. PROCEDURE: XR CHEST 1V INDICATIONS: Concern for new pulmonary edema. TECHNIQUE: One view of the chest was acquired. COMPARISON: [facility], CR, XR CHEST 1V, 05/14/2023, 0:21. FINDINGS: Surgical changes and devices: Overlying defibrillator pads and monitoring wires. Lungs and pleura: There is thickening of the bilateral interstitial markings diffusely. No focal alveolar opacities, effusions, or pneumothorax. Mediastinum: Normal size heart. No significant central venous congestion. Normal aortic contour. Bones and chest wall: No suspicious bony lesions. Overlying soft tissues appear unremarkable. IMPRESSION: 1. Diffuse interstitial thickening may indicate edema or hypoinflation. 2. No significant central vascular congestion. Dictated by: Shoshana Hi M.D. on 05/14/2023 at 1:39 Approved by: Shoshana Hi M.D. on 05/14/2023 at 1:41 ECG Data Attestation: I personally reviewed and interpreted this ECG as follows: Prior ECG tracings: available for review Interpretation: Atrial tachycardia with a rate of 159 QRS of 134 QTC of 543. Right bundle-branch and left axis deviation. Rhythm is very regular maybe atrial flutter with two-to-one conduction versus atrial fibrillation. No significant ST elevation appreciated, no depression noted. Patient has prior EKGs from 11/11/2021. Patient's EKG does appear different with prior tachycardia is some have similar. MDM Narrative Medical decision making narrative: EF is 45%, mild global left ventricular dysfunction poor endocardial definition preclude reliable regional wall assessment with normal right ventricular size and function mild mitral regurg present aortic leaflets are mildly sclerotic without stenosis trace aortic insufficiency June stated, mild tricuspid regurg with normal pulmonary pressure from echo on 11/14/2021. Patient states he is had diltiazem in the past. You received a dose of 10 mg diltiazem as he had his recent plan cardioversion canceled and rescheduled for a SHARAD as they were unsure if he has been taking anticoagulation regularly and had significant drop in blood pressure patient became diaphoretic and pale and nauseated. Was placed in Trendelenburg given fluids, additional diltiazem was held. Patient had pads placed, discussed potential for emergent cardioversion but patient's blood pressure has been slowly improving heart rate did improve somewhat to the 130 range has had occasional PVCs but is fairly regular. Patient was given 1 dose of Ativan as he is prolonged QT on his EKG and by report in his EMR. Patient's blood pressure had significant drop is now trending upwards edit 100 and his color has improved diaphoresis resolved. Patient's labs show white count of 12, normal hemoglobin, platelets are appropriate, INR is 1.9. Electrolytes shows potassium of 4.9, magnesium is 2.2. Normal sodium BUN 26 creatinine 1.22, patient appears to be 0.9 in August of 2022 glucose is 114 ALT 75 but LFTs are otherwise appropriate. Troponin is is negative. BNP is 3790. TSH as patient has been elevated in the past is elevated again today. Free T4 is appropriate. Chest xray prelim shows no acute change. On recheck patient has been running more consistently in the 130s, pressures been systolic around 90 pretty consistently with a map of 70. Patient does feel improved no longer pale diaphoretic his colors returned. Reviewed all of his findings so far. Discussed plan to reach out to his cardiology team for recommendations. Does have an echo from 11/11 that was reviewed. Concern for pulmonary edema, patient was wearing little bit extra O2. Repeat chest x-ray was performed shows some increased interstitial markings. Patient was given a dose of Lasix 40 mg IV. Was noted his BNP is elevated from past visit. Repeat chest x-ray shows some mild change. On re-examination patient does not have any crackles in his bases. No increased work of breathing. Spoke with patient's cardiology team at [facility] in [place]: Dr. Hunter cardiology. Reviewed there is question whether patient's Eliquis has been appropriate and he had his cardioversion with Cardiology canceled this past Sunday and rescheduled for sharad. After discussion we will hold off on any cardioversion here in the department. Discussed but is very sensitive to diltiazem, does have appears to be little bit of prolonged QT on EKG and has either atrial flutter or fib with right bundle-branch block. They recommend digoxin 500 mg IV for rate control and plan for transfer. Hospitalist at [facility], spoke with Dr. Gregorio Marcelo who accepts for transfer plan for PCU. Discussed patient's labs, workup, prior echo, received delta at about midnight 10 mg had significant hypotension, continues to be tachycardic although slightly improved now being loaded with digoxin did appear to develop some additional pulmonary edema/CHF and was given Lasix and is on 3 L currently. Patient to be transported ALS. Received digoxin 0213am, HR consistent in 130s, pressure 107 systolic with MAP in 70s. Critical Care Time Critical Care Time Critical Care Time: Yes Total Critical Care Time: 55 Attestation: The high probability of a clinically significant, sudden or life threatening deterioration of the [cardiac,pulm] system(s) required my full and direct attention, intervention and personal management. The aggregate critical care time was [55] minutes. This time is in addition to time spent performing reported procedures but includes the following: [x] Data Review and interpretation [x] Patient assessment and monitoring of vital signs [x] Documentation [x] Medication orders and management Discharge Plan Departure Patient Disposition: Xfer [facility] Clinical Impression: Atrial fibrillation with rapid ventricular response, CHF (congestive heart failure) Prescriptions: No Action spironolactone [Aldactone] 25 MG tablet 12.5 mg PO QDAY Qty: 0 metoprolol succinate [Toprol XL] 25 mg tablet extended release 24 hr 25 mg PO BEDTIME Qty: 90 1RF atorvastatin 40 mg tablet 40 mg PO BEDTIME Qty: 90 3RF Eliquis 5 mg tablet 5 mg PO BID Referrals: Arina Harrell DO [Primary Care Provider] -
[2023-05-14] VITALS (43 sets, daily range): BP systolic 64–112; BP diastolic 46–84; PULSE 129–160; RESP 12–24; TEMP 36.6; O2SAT 88–100
[2023-05-14 00:04] LABS: Add Manual Diff / Slide Review NO; Basophils Absolute Auto 100 /uL (0-100); Basophils Percent Auto 0.7 % (0-2); Eosinophils Absolute Auto 100 /uL (0-450); Eosinophils Percent Auto 0.8 % (2-4); Hematocrit 47.8 % (41-53); Hemoglobin 16.1 g/dL (13.5-17.5); Lymphocytes Absolute Auto 3600 /uL (1100-4500); Lymphocytes Percent Auto 28.3 % (25-40); Mean Corpuscular HGB Conc 33.7 % (30-36); Mean Corpuscular Volume 92.1 fL (80-100); Monocytes Absolute Auto 1000 /uL (0-900); Monocytes Percent Auto 7.6 % (3-14); Neutrophils Absolute Auto 7900 /uL (1500-7000); Neutrophils Percent Auto 62.6 % (50-75); Platelet Count 231 X10^3/uL (150-400); Red Cell Distribution Width 13.8 % (11.6-14.8); White Blood Cell Count 12.7 X10^3/uL (4.5-11.0)
[2023-05-14 00:05] LABS: INR 1.9 (0.9-1.3); Prothrombin Time 22.1 SECONDS (10.1-12.7)
[2023-05-14] MEDS: LORazepam 2 MG/ML INJ 0.5 MG IV (00:07)
[2023-05-14] MEDS: SODIUM CHLORIDE 0.9% 1,000 ML 1000 ML IV ×3 (00:07→00:34)
[2023-05-14 00:08] LABS: PTT Partial Thromboplastin Tim 34 SECONDS (26-36)
[2023-05-14] MEDS: dilTIAZem 5 MG/ML SDV 10 MG IV (00:08)
[2023-05-14 00:32] LABS: Magnesium 2.2 mg/dL (1.6-2.3)
[2023-05-14 00:33] LABS: Alanine Aminotransferase 75 IU/L (<50); Albumin 3.9 g/dL (3.5-5.0); Albumin Globulin Ratio 1.5 (1.0-2.8); Alkaline Phosphatase 74 U/L (38-126); Aspartate Aminotransferase 51 IU/L (17-59); BUN Creatinine Ratio 21.3 (6-22); Bilirubin Total 0.8 mg/dL (0.2-1.3); Blood Urea Nitrogen 26 mg/dL (9-20); Calcium 8.7 mg/dL (8.4-10.2); Carbon Dioxide 23 mmol/L (22-32); Chloride 106 mmol/L (98-107); Creatine Kinase 65 U/L (55-170); Estimated Glomerular Filt Rate > 60 mL/min (>60); Globulin 2.6 g/dL (1.7-4.1); Glucose 114 mg/dL (80-110); Lipase 44 U/L (23-300); Potassium 4.9 mmol/L (3.4-5.1); Sodium 138 mmol/L (137-145); Total Protein 6.5 g/dL (6.3-8.2)
[2023-05-14 00:34] LABS: HEMOLYSIS 99 (0-50)
[2023-05-14 00:42] LABS: NT-proBNP (BNP-Adult 18+) 3790 pg/mL (<125)
[2023-05-14 00:45] LABS: Troponin I 0.016 ng/mL (0.01-0.034)
[2023-05-14 00:54] LABS: TSH w/ Reflex to FT4 6.19 uIU/mL (0.47-4.68)
--- NOTE | 2023-05-14 01:12 | DI.RAD.S_ITS ---
PROCEDURE: XR CHEST 1V INDICATIONS: Concern for new pulmonary edema. TECHNIQUE: One view of the chest was acquired. COMPARISON: [facility], , XR CHEST 1V, 05/14/2023, 0:21. FINDINGS: Surgical changes and devices: Overlying defibrillator pads and monitoring wires. Lungs and pleura: There is thickening of the bilateral interstitial markings diffusely. No focal alveolar opacities, effusions, or pneumothorax. Mediastinum: Normal size heart. No significant central venous congestion. Normal aortic contour. Bones and chest wall: No suspicious bony lesions. Overlying soft tissues appear unremarkable. IMPRESSION: 1. Diffuse interstitial thickening may indicate edema or hypoinflation. 2. No significant central vascular congestion. Dictated by: Shoshana Hi M.D. on 05/14/2023 at 1:39 Approved by: Shoshana Hi M.D. on 05/14/2023 at 1:41
[2023-05-14 01:29] LABS: Free T4, Direct Thyroxine 1.24 ng/dL (0.78-2.19)
[2023-05-14] MEDS: FUROSEMIDE 40 MG/4 ML VIAL IV (01:39)
[2023-05-14] MEDS: DIGOXIN 500 MCG/2 ML AMPUL IV (02:13)
== END 2023-05-14 05:00 | disposition short-term general hospital (02) ==
PROVIDERS: Emergency Provider Emergency Medicine; PCP Family Medicine
DX: I48.20 Chronic atrial fibrillation, unspecified (principal); I50.9 Heart failure, unspecified; Z79.01 Long term (current) use of anticoagulants; K59.00 Constipation, unspecified
CPT/HCPCS: 36415; 71045; 80053; 82550; 83690; 83735; 83880; 84439; 84443; 84484; 85025; 85610; 85730; 93005; 93010; 96361; 96374; 96375; 99284; 99291; J1160; J1940; J2060

== ENCOUNTER → 2023-10-04 11:25 | Outpatient (CLI) | payer MEDICARE, OTHER, SELFPAY ==
[2023-10-08 20:32] LABS: Fecal Immunochemical Test Negative (Negative)
== END ==
LOC: LAB 11:26
PROVIDERS: PCP Family Medicine; Referring Provider Family Medicine; Visit Provider Family Medicine
DX: Z12.11 Encounter for screening for malignant neoplasm of colon (principal)
CPT/HCPCS: 82274

== ENCOUNTER → 2023-10-10 12:58 | Outpatient (CLI) | payer MEDICARE, OTHER, SELFPAY ==
[2023-10-10 14:20] LABS: BUN Creatinine Ratio 27.5 (6-22); Blood Urea Nitrogen 28 mg/dL (9-20); Carbon Dioxide 27 mmol/L (22-32); Chloride 108 mmol/L (98-107); Estimated Glomerular Filt Rate > 60 mL/min (>60); Glucose 107 mg/dL (80-110); HEMOLYSIS 15 (0-50); Potassium 4.4 mmol/L (3.4-5.1); Sodium 140 mmol/L (137-145)
== END ==
PROVIDERS: PCP Family Medicine; Referring Provider Nurse Practitioner Acute Care; Visit Provider Nurse Practitioner Acute Care
DX: Z00.00 Encounter for general adult medical examination without abnormal findings (principal); I48.0 Paroxysmal atrial fibrillation; I10 Essential (primary) hypertension; I42.0 Dilated cardiomyopathy; I50.22 Chronic systolic (congestive) heart failure; E78.5 Hyperlipidemia, unspecified
CPT/HCPCS: 36415; 80048

== ENCOUNTER 2024-05-21 07:41 | Emergency (ER) | payer MEDICARE, OTHER, SELFPAY ==
[2024-05-21] VITALS (10 sets, daily range): BP systolic 90–120; BP diastolic 53–88; PULSE 92–189; RESP 11–18; TEMP 36.6; O2SAT 97–100; BMI 23.7
--- NOTE | 2024-05-21 07:50 | EKG_ITS ---
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
--- NOTE | 2024-05-21 07:50 | DI.RAD.S_ITS ---
PROCEDURE: XR CHEST 1V INDICATIONS: chest pain TECHNIQUE: One view of the chest was acquired. COMPARISON: [facility], CR, XR CHEST 1V, 05/14/2023, 1:11. FINDINGS: Surgical changes and devices: None. Lungs and pleura: Lungs are clear. No pleural effusions or pneumothorax. Mediastinum: Mediastinal contours appear normal. Heart size is normal. Bones and chest wall: No suspicious bony lesions. Overlying soft tissues appear unremarkable. IMPRESSION: No acute cardiopulmonary abnormality is seen. Dictated by: Tr Reyna M.D. on 05/21/2024 at 8:20 Approved by: Tr Reyna M.D. on 05/21/2024 at 8:22
--- NOTE | 2024-05-21 07:52 | ED.ARRPALP ---
HPI - Arrhythmia/Palpitations General Chief Complaint: Arrhythmia/Palpitations Stated Complaint: per pt racing heart Time Seen by Provider: 05/21/24 07:52 Source: patient, RN notes reviewed and old records reviewed Mode of arrival: Ambulatory Limitations: no limitations History of Present Illness HPI narrative: 73-year-old male history of atrial fibrillation on Eliquis, Tikosyn, metoprolol with a history of EF of 45% and mild global left ventricular dysfunction on echo in October 2021. Patient presents with complaint of elevated heart rate patient states he can feel it it is irregular she denies any lightheadedness or passing out, denies any diaphoresis. Denies any chest pain. States he feels a little short of breath. He describes his symptoms as mild and states it just started at 7:30 a.m. this morning. Denies any nausea or vomiting. No issues with bowel movements or urination. No new swelling in extremities. Patient was seen here proximally year ago and a being transferred for COREY patient had cardioversion at [facility]. He states he was ultimately started on Tikosyn in the past year and has been doing well. He states there has been discussions about a 3rd ablation. Patient states home medications include Eliquis, metoprolol, lisinopril, spironolactone, Tikosyn. States no prior cardiac stents. No known drug allergies. No tobacco, alcohol or recreational drugs. He follows with Cardiology through [facility] in [place]. Related Data Home Medications Medication Instructions Recorded Confirmed apixaban 5 mg tablet (Eliquis) 5 mg PO BID 08/19/19 09/10/23 dofetilide 250 mcg capsule 250 mcg PO BID 09/10/23 09/10/23 spironolactone 25 mg tablet 12.5 mg PO DAILY 09/10/23 09/10/23 Previous Rx's Medication Instructions Recorded atorvastatin 40 mg tablet 40 mg PO BEDTIME #90 tabs 09/10/23 lisinopril 5 mg tablet 5 mg PO DAILY #90 tabs 09/10/23 metoprolol succinate 25 mg 25 mg PO DAILY #90 tabs 09/10/23 tablet,extended release 24 hr (Toprol XL) Allergies Allergy/AdvReac Type Severity Reaction Status Date / Time No Known Drug Allergies Allergy Verified 09/10/23 08:11 Review of Systems Review of Systems ROS Unobtainable: All systems reviewed & are unremarkable except as noted in HPI and below Patient History Medical History Benign essential HTN Dilated cardiomyopathy Chronic systolic CHF (congestive heart failure) Subclinical hypothyroidism Hyperlipidemia Chronic systolic heart failure Cardiomyopathy QT prolongation HTN (hypertension) Sinus bradycardia SVT (supraventricular tachycardia) Headache Shortness of breath Paroxysmal atrial fibrillation Surgical History Anesthesia History of radiofrequency ablation procedure for cardiac arrhythmia Left inguinal hernia (2014) Family History Father Diabetes mellitus Social History household members: significant other Smoking Status: Never smoker second hand exposure: No alcohol intake: never substance use type: does not use Smoking Status: Never smoker alcohol intake frequency: other Substance Use Type: does not use Exam Narrative Exam Narrative: GENERAL: Alert and oriented x three, well-appearing male in mild distress HEENT: Head normocephalic, atraumatic, EOMI, pupils reactive, face symmetric, moist mucous membranes NECK: Supple, full range of motion CARDIOVASCULAR: Tachycardic and regular rate and rhythm without murmurs, rubs or gallops. No JVD. No edema bilateral lower extremities. RESPIRATORY: Breath sounds equal bilaterally, no wheezes rales or rhonchi. ABDOMEN: Soft, nontender. Normoactive bowel sounds all 4 quadrants. No guarding or rebound, rigidity, no mass : No CVA tenderness EXTREMITIES: Normal range of motion, no clubbing or edema. Neurovascularly intact NEUROLOGICAL: Cranial nerves II through XII grossly intact. Moving all extremities SKIN: Warm, dry, no petechiae, no rashes or lesions. Initial Vital Signs Initial Vital Signs: Vital Signs Temperature 97.8 F 05/21/24 07:48 Pulse Rate 189 H 05/21/24 07:48 Respiratory Rate 12 05/21/24 07:48 Blood Pressure 120/88 05/21/24 07:48 Pulse Oximetry 98 05/21/24 07:48 Oxygen Delivery Method Room Air 05/21/24 07:48 Course Orders Ordered: ED Orders 05/21/24 09:17 EKG-12 Lead Stat Discontinued Medications Diltiazem HCl (Diltiazem 25 Mg/5 Ml Sdv) 10 mg IV NOW ONE Stop: 05/21/24 07:54 Last Admin: 05/21/24 09:11 Dose: Not Given Documented By: ON LICENSE OF [facility] Sodium Chloride (Normal Saline 0.9%) 500 mls @ 1,000 mls/hr IV BOLUS ONE Stop: 05/21/24 08:28 Last Infusion: 05/21/24 08:33 Dose: Infused Documented By: Admin: 05/21/24 08:06 Dose: 1,000 mls/hr Documented By: ON LICENSE OF [facility] Vital Signs Vital signs: Vital Signs - 8 hr 05/21/24 09:30 05/21/24 09:30 05/21/24 10:00 Pulse Rate 93 H 94 H Respiratory Rate 16 Blood Pressure 90/69 Pulse Oximetry 97 98 05/21/24 10:00 05/21/24 10:30 05/21/24 10:30 Pulse Rate 93 H Respiratory Rate Blood Pressure 112/75 99/70 Pulse Oximetry 97 MDM - Arrhythmia/Palpitations Lab Data 05/21/24 07:51 05/21/24 07:51 Labs: Lab Results 05/21/24 Range/Units 07:51 WBC 10.9 (4.5-11.0) X10^3/uL RBC 5.02 (4.5-5.9) X10^6/uL Hgb 16.0 (13.5-17.5) g/dL Hct 47.2 (41-53) % MCV 94.0 (80-100) fL MCH 31.9 (26-34) PG MCHC 33.9 (30-36) % RDW 13.4 (11.6-14.8) % Plt Count 303 (150-400) X10^3/uL Neut % (Auto) 57.5 (50-75) % Lymph % (Auto) 30.3 (25-40) % Thomas % (Auto) 8.7 (3-14) % Eos % (Auto) 2.5 (2-4) % Baso % (Auto) 1.0 (0-2) % Neut # (Auto) 6300 (0292-9137) /uL Lymph # (Auto) 3300 (1317-6004) /uL Thomas # (Auto) 900 (0-900) /uL Eos # (Auto) 300 (0-450) /uL Baso # (Auto) 100 (0-100) /uL PT 13.1 H (9.4-12.5) SECONDS INR 1.1 (0.9-1.3) APTT 42 H (25.1-36.5) SECONDS Sodium 138 (137-145) mmol/L Potassium 4.8 (3.4-5.1) mmol/L Chloride 104 (98-107) mmol/L Carbon Dioxide 24 (22-32) mmol/L BUN 24 H (9-20) mg/dL Creatinine 1.27 H (0.66-1.25) mg/dL Estimated GFR > 60 (>60) mL/min BUN/Creatinine Ratio 18.9 (6-22) Glucose 164 H (80-110) mg/dL Calcium 9.5 (8.4-10.2) mg/dL Magnesium 2.1 (1.6-2.3) mg/dL Total Bilirubin 0.9 (0.2-1.3) mg/dL AST 25 (17-59) IU/L ALT 28 (<50) IU/L Alkaline Phosphatase 90 (38-126) U/L Total Creatine Kinase 86 (55-170) U/L Troponin I < 0.012 (0.01-0.034) ng/mL NT-Pro-B Natriuret Pep 285 H (<125) pg/mL Total Protein 7.5 (6.3-8.2) g/dL Albumin 4.8 (3.5-5.0) g/dL Globulin 2.7 (1.7-4.1) g/dL Albumin/Globulin Ratio 1.8 (1.0-2.8) Lipase 301 H (23-300) U/L Imaging Data Chest x-ray: Radiologist's Impresson: Close Chest X-Ray (Signed) Tr Reyna - 05/21/24 Outside Echo 02/07/24 Outside Echo 09/26/23 Chest X-Ray (Signed) Shoshana Hi - 05/14/23 Chest X-Ray (Signed) Shoshana Hi - 05/13/23 DI Result CC 11/15/21 Chest X-Ray (Signed) Feng Vela - 11/11/21 Abdominal Arterial Study US (Signed) Maurisio Amos - 08/11/20 DI Result CC 04/23/19 Chest CTA (Signed) Maurisio Amos - 03/13/19 Chest X-Ray (Signed) LawtonLukas - 03/12/19 Telemetry Strips 03/12/19 Chest X-Ray (Signed) Maurisio Amos - 10/29/18 Telemetry Strips 05/21/17 Launch?Image [address] [address] XRay Report Signed Patient: Omar Vargas MR#: [id number] : 1950 Acct:[id number] Age/Sex: 73 / M Date of Service: 05/21/24 Loc: ED Accession Number: [id number] Procedure: XR chest 1V Ordering Provider: Sheila Putnam D.O. PROCEDURE: XR CHEST 1V INDICATIONS: chest pain TECHNIQUE: One view of the chest was acquired. COMPARISON: [facility], , XR CHEST 1V, 05/14/2023, 1:11. FINDINGS: Surgical changes and devices: None. Lungs and pleura: Lungs are clear. No pleural effusions or pneumothorax. Mediastinum: Mediastinal contours appear normal. Heart size is normal. Bones and chest wall: No suspicious bony lesions. Overlying soft tissues appear unremarkable. IMPRESSION: No acute cardiopulmonary abnormality is seen. Dictated by: Tr Reyna M.D. on 05/21/2024 at 8:20 Approved by: Tr Reyna M.D. on 05/21/2024 at 8:22 ECG Data Attestation: I personally reviewed and interpreted this ECG as follows: Prior ECG tracings: available for review Interpretation: Abdi QRS tachycardia left axis deviation, right bundle-branch block. Patient rate is very regular, could be atrial flutter with right bundle-branch, rate is 191 QRS is 126 QTC is 520. Patient has prior EKG which appears fairly similar mother some ST changes in comparison from October of 2022. Also showed a right bundle-branch block, left axis deviation at that time. Repeat EKG shows what looks more like atrial fibrillation with a rate of 118 QRS of 136 QTC of 527 with right bundle left anterior fascicular block although EKG read as atrial flutter with a variable AV block. EKG 3. Shows sinus rhythm right bundle-branch, left anterior fascicular block rate of 94 SC 138 QRS of 140 QTC of 510. MDM Narrative Medical decision making narrative: 73-year-old male history of atrial fibrillation, prior EF of 45% in October of 2021 presents in either atrial fibrillation with a rapid ventricular response or possibly atrial flutter. Patient states had onset today, he is appropriately anticoagulated. He is on multiple medications including Tikosyn and metoprolol. Labs white count of 10 hemoglobin of 16 platelets of 303. Sodium 138 potassium 4.8 chloride of 104 CO2 of 24 BUN 24 creatinine of 1.27 increased from September 2023 glucose of 164 LFTs are negative troponins less than 0.012 with a BNP of 285 and a lipase of 301. Chest x-ray shows no acute change EKG shows fairly regular rate of 191 read as wide complex tachycardia but patient has a right bundle left axis deviation appears similar to prior EKG. 0804: Patient's heart rate is significantly improved without any intervention, patient notes he did take his home Eliquis, metoprolol 25 mg, spironolactone and Tikosyn at 7:30 a.m. this morning when he started to feel his symptoms these are his normal morning medications. Heart rates currently 115. We will give a 500 mL bolus if patient continues to be much more rate controlled we will wait for labs to return before giving any additional medications as his home meds are likely starting to affect his rhythm. Patient has not echo from 02/07/2024 which showed EF of 46% mildly increased left ventricular wall thickness left ventricular segmental wall motion was normal dilated left ventricular chamber, right ventricular dimension was normal with mildly reduced systolic right ventricular systolic function left atrial chamber was severely dilated right atrial chamber was normal. Mild aortic stenosis trace atrial regurg. While waiting for Cardiology, back patient appears to have cardioverted back to sinus rhythm has been in it for about 20 or 30 minutes. Has a rate in the 90s. Consult with [facility] cardiology DIRECTOR BUSINESS TRAVEL [place], patient is supposed to be seen in June they will try to move up his appointment to sooner he was supposed to follow up with electrophysiology. No acute medication changes at this time. Did discuss if they have any recommendations for medications as he was quite sensitive with his blood pressure to diltiazem last time he was here. They had no other recommendations other than cardioversions. She does note he does have a history of atrial flutter as well as atrial fibrillation. Discharge Plan Departure Patient Disposition: Home Clinical Impression: Atrial flutter with rapid ventricular response Activity Restrictions/Additional Instructions: I spoke with your cardiology team, they are going to try to move up your appointment with the electrophysiology to a sooner date. They recommended continue your current medications as prescribed. Please return if you have recurrent symptoms, elevated or fast heart rate, chest pain or shortness of breath, lightheadedness or passing out, new swelling in your extremities or other new or concerning changes. Prescriptions: No Action spironolactone 25 mg tablet 12.5 mg PO DAILY dofetilide 250 mcg capsule 250 mcg PO BID atorvastatin 40 mg tablet 40 mg PO BEDTIME Qty: 90 3RF lisinopril 5 mg tablet 5 mg PO DAILY Qty: 90 3RF metoprolol succinate [Toprol XL] 25 mg tablet extended release 24 hr 25 mg PO DAILY Qty: 90 3RF Eliquis 5 mg tablet 5 mg PO BID Referrals: Arina Harrell DO [Primary Care Provider] - Stand Alone Forms: Patient Portal/API/Survey
[2024-05-21 07:56] LABS: Add Manual Diff / Slide Review NO; Basophils Absolute Auto 100 /uL (0-100); Eosinophils Absolute Auto 300 /uL (0-450); Eosinophils Percent Auto 2.5 % (2-4); Hematocrit 47.2 % (41-53); Lymphocytes Absolute Auto 3300 /uL (1100-4500); Lymphocytes Percent Auto 30.3 % (25-40); Mean Corpuscular HGB Conc 33.9 % (30-36); Mean Corpuscular Hemoglobin 31.9 PG (26-34); Monocytes Absolute Auto 900 /uL (0-900); Monocytes Percent Auto 8.7 % (3-14); Neutrophils Absolute Auto 6300 /uL (1500-7000); Neutrophils Percent Auto 57.5 % (50-75); Platelet Count 303 X10^3/uL (150-400); Red Blood Cell Count 5.02 X10^6/uL (4.5-5.9); Red Cell Distribution Width 13.4 % (11.6-14.8); White Blood Cell Count 10.9 X10^3/uL (4.5-11.0)
--- NOTE | 2024-05-21 08:03 | EKG_ITS ---
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
[2024-05-21 08:04] LABS: INR 1.1 (0.9-1.3); Prothrombin Time 13.1 SECONDS (9.4-12.5)
--- NOTE | 2024-05-21 08:05 | PC.NURSE ---
Patient rate slowed on its own down to 110-120 range, repeat EKG obtained. Dr Putnam at bedside. Holding off on medications at this time. Patient just took home meds this morning around 0730.
[2024-05-21] MEDS: SODIUM CHLORIDE 0.9% 500 ML 1000 ML IV (08:06)
[2024-05-21 08:07] LABS: PTT Partial Thromboplastin Tim 42 SECONDS (25.1-36.5)
[2024-05-21 08:08] LABS: Alanine Aminotransferase 28 IU/L (<50); Albumin 4.8 g/dL (3.5-5.0); Albumin Globulin Ratio 1.8 (1.0-2.8); Alkaline Phosphatase 90 U/L (38-126); Aspartate Aminotransferase 25 IU/L (17-59); BUN Creatinine Ratio 18.9 (6-22); Bilirubin Total 0.9 mg/dL (0.2-1.3); Blood Urea Nitrogen 24 mg/dL (9-20); Calcium 9.5 mg/dL (8.4-10.2); Carbon Dioxide 24 mmol/L (22-32); Chloride 104 mmol/L (98-107); Creatine Kinase 86 U/L (55-170); Estimated Glomerular Filt Rate > 60 mL/min (>60); Globulin 2.7 g/dL (1.7-4.1); Glucose 164 mg/dL (80-110); HEMOLYSIS < 15 (0-50); Lipase 301 U/L (23-300); Magnesium 2.1 mg/dL (1.6-2.3); Potassium 4.8 mmol/L (3.4-5.1); Sodium 138 mmol/L (137-145); Total Protein 7.5 g/dL (6.3-8.2)
[2024-05-21 08:20] LABS: NT-proBNP (BNP-Adult 18+) 285 pg/mL (<125); Troponin I < 0.012 ng/mL (0.01-0.034)
--- NOTE | 2024-05-21 09:14 | EKG_ITS ---
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
--- NOTE | 2024-05-21 10:05 | PC.NURSE ---
Made phone call for consult with patient's kineseologist Dr. Law at [phone]. Left a message with the desk campus receptionist to have Dr. Law call when available. Recalled at 0943 for update on consult call. Was informed they have pulled the records of this visit and Dr. Law will call after he is available next.
== END 2024-05-21 10:39 | disposition home or self-care (01) ==
PROVIDERS: Emergency Provider Emergency Medicine; PCP Family Medicine
DX: I48.92 Unspecified atrial flutter (principal); Z79.01 Long term (current) use of anticoagulants; R06.02 Shortness of breath; R07.9 Chest pain, unspecified; R00.0 Tachycardia, unspecified; I45.2 Bifascicular block
CPT/HCPCS: 36415; 71045; 80053; 82550; 83690; 83735; 83880; 84484; 85025; 85610; 85730; 93005; 99284

== ENCOUNTER 2024-05-22 18:58 | Emergency (ER) | payer MEDICARE, OTHER, SELFPAY ==
[2024-05-22] VITALS (13 sets, daily range): BP systolic 85–115; BP diastolic 50–76; PULSE 92–153; RESP 15–18; TEMP 36.1; O2SAT 93–98; BMI 23.7
--- NOTE | 2024-05-22 19:06 | EKG_ITS ---
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
--- NOTE | 2024-05-22 19:06 | DI.RAD.S_ITS ---
PROCEDURE: XR CHEST 1V INDICATIONS: chest pain TECHNIQUE: One view of the chest was acquired. COMPARISON: [facility], CR, XR CHEST 1V, 05/21/2024, 7:53. [facility], CR, XR CHEST 1V, 05/14/2023, 1:11. [facility], CR, XR CHEST 1V, 05/14/2023, 0:21. [facility], CR, XR CHEST 1V, 11/11/2021, 18:09. FINDINGS: Surgical changes and devices: None. Lungs and pleura: Lungs are clear. No pleural effusions or pneumothorax. Mediastinum: Tortuous contour of the thoracic aorta. Mediastinal contours appear normal. Mild cardiomegaly. Bones and chest wall: No suspicious bony lesions. Overlying soft tissues appear unremarkable. IMPRESSION: No acute cardiothoracic process. Dictated by: Timothy Espinoza M.D. on 05/22/2024 at 19:59 Approved by: Timothy Espinoza M.D. on 05/22/2024 at 20:01
--- NOTE | 2024-05-22 19:10 | EKG_ITS ---
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
[2024-05-22 19:21] LABS: Add Manual Diff / Slide Review NO; Basophils Absolute Auto 100 /uL (0-100); Basophils Percent Auto 0.9 % (0-2); Eosinophils Absolute Auto 300 /uL (0-450); Eosinophils Percent Auto 2.6 % (2-4); Hematocrit 47.7 % (41-53); Lymphocytes Absolute Auto 3700 /uL (1100-4500); Lymphocytes Percent Auto 28.9 % (25-40); Mean Corpuscular HGB Conc 33.6 % (30-36); Mean Corpuscular Hemoglobin 31.4 PG (26-34); Mean Corpuscular Volume 93.5 fL (80-100); Monocytes Absolute Auto 1100 /uL (0-900); Monocytes Percent Auto 8.5 % (3-14); Neutrophils Absolute Auto 7500 /uL (1500-7000); Neutrophils Percent Auto 59.1 % (50-75); Platelet Count 311 X10^3/uL (150-400); Red Cell Distribution Width 13.4 % (11.6-14.8); White Blood Cell Count 12.8 X10^3/uL (4.5-11.0)
[2024-05-22 19:26] LABS: INR 1.2 (0.9-1.3); Prothrombin Time 13.2 SECONDS (9.4-12.5)
[2024-05-22 19:29] LABS: PTT Partial Thromboplastin Tim 40 SECONDS (25.1-36.5)
[2024-05-22 19:32] LABS: Alanine Aminotransferase 32 IU/L (<50); Albumin 4.9 g/dL (3.5-5.0); Albumin Globulin Ratio 1.9 (1.0-2.8); Alkaline Phosphatase 93 U/L (38-126); Aspartate Aminotransferase 33 IU/L (17-59); BUN Creatinine Ratio 19.8 (6-22); Bilirubin Total 0.7 mg/dL (0.2-1.3); Blood Urea Nitrogen 26 mg/dL (9-20); Calcium 9.3 mg/dL (8.4-10.2); Carbon Dioxide 22 mmol/L (22-32); Chloride 103 mmol/L (98-107); Creatine Kinase 83 U/L (55-170); Estimated Glomerular Filt Rate 58 mL/min (>60); Globulin 2.6 g/dL (1.7-4.1); Glucose 148 mg/dL (80-110); HEMOLYSIS 21 (0-50); Lipase 100 U/L (23-300); Magnesium 1.9 mg/dL (1.6-2.3); Potassium 4.4 mmol/L (3.4-5.1); Sodium 136 mmol/L (137-145); Total Protein 7.5 g/dL (6.3-8.2)
--- NOTE | 2024-05-22 19:41 | ED.ARRPALP ---
HPI - Arrhythmia/Palpitations General Chief Complaint: Arrhythmia/Palpitations Stated Complaint: rapid heartbeat, Afib, here yesterday Time Seen by Provider: 05/22/24 19:39 Source: patient Mode of arrival: Ambulatory History of Present Illness HPI narrative: 73-year-old male with history of atrial fibrillation/flutter first diagnosed 2011, prior freezing ablation procedure 2013, also had cautery ablation procedure Dr. Johan Shearer about 2018, prior cardioversions sometimes successful and sometimes not, on Eliquis chronic anticoagulation, seen here with racing heart, was about to have cardioversion with borderline low blood pressure when he converted to sinus rhythm, was observed and discharged yesterday. He seemed to do well through the day, ate dinner 6:00 p.m. with his , shortly thereafter had recurrence of heart rate/irregular heartbeat sensation, started to drive toward the hospital but then likely converted, heart rate 80s noted, they turned around and went back home. He took his morning metoprolol 25 mg dose, due for evening dose at 7:30 a.m., took a little earlier, due to take his evening Eliquis, has been taking Eliquis medications. Then he had heart racing irregular heartbeat sensation again, no syncope or presyncope, no chest discomfort, here for further evaluation. Related Data Home Medications Medication Instructions Recorded Confirmed apixaban 5 mg tablet (Eliquis) 5 mg PO BID 08/19/19 09/10/23 dofetilide 250 mcg capsule 250 mcg PO BID 09/10/23 09/10/23 spironolactone 25 mg tablet 12.5 mg PO DAILY 09/10/23 09/10/23 Previous Rx's Medication Instructions Recorded atorvastatin 40 mg tablet 40 mg PO BEDTIME #90 tabs 09/10/23 lisinopril 5 mg tablet 5 mg PO DAILY #90 tabs 09/10/23 metoprolol succinate 25 mg 25 mg PO DAILY #90 tabs 09/10/23 tablet,extended release 24 hr (Toprol XL) Allergies Allergy/AdvReac Type Severity Reaction Status Date / Time No Known Drug Allergies Allergy Verified 05/22/24 19:06 Review of Systems Review of Systems Narrative: see HPI Patient History Medical History Benign essential HTN Dilated cardiomyopathy Chronic systolic CHF (congestive heart failure) Subclinical hypothyroidism Hyperlipidemia Chronic systolic heart failure Cardiomyopathy QT prolongation HTN (hypertension) Sinus bradycardia SVT (supraventricular tachycardia) Headache Shortness of breath Paroxysmal atrial fibrillation Surgical History Anesthesia History of radiofrequency ablation procedure for cardiac arrhythmia Left inguinal hernia (2014) Family History Father Diabetes mellitus Social History household members: significant other Smoking Status: Never smoker second hand exposure: No alcohol intake: never substance use type: does not use Smoking Status: Never smoker alcohol intake frequency: holidays/special occasions only Substance Use Type: does not use Exam Narrative Exam Narrative: GENERAL: Well-developed patient, in mild distress. HEAD: Atraumatic. Normocephalic. EYES: Pupils equal round and reactive. Extraocular motions intact. No scleral icterus. No injection or drainage. ENT: Nose without bleeding, purulent drainage. Throat without erythema, tonsillar hypertrophy or exudate. Airway patent. NECK: Trachea midline. Non tender CARDIOVASCULAR: Regular rate and rhythm without murmurs, gallops, or rubs. RESPIRATORY: Clear to auscultation. Breath sounds equal bilaterally. No wheezes, rales, or rhonchi. GASTROINTESTINAL: Abdomen soft, non-tender, nondistended. EXTREMITIES: No edema or joint tenderness. BACK: Nontender without deformity or crepitance. No flank tenderness. NEURO: AOx3. Motor functions grossly nonfocal SKIN: No rash or erythema of visible areas Initial Vital Signs Initial Vital Signs: Vital Signs Temperature 97.0 F L 05/22/24 19:00 Pulse Rate 153 H 05/22/24 19:00 Respiratory Rate 15 05/22/24 19:00 Blood Pressure 115/76 05/22/24 19:00 Pulse Oximetry 93 05/22/24 19:00 Oxygen Delivery Method Room Air 05/22/24 19:00 Course Orders Ordered: ED Orders 05/22/24 23:07 EKG-12 Lead Stat Discontinued Medications Diltiazem HCl (Diltiazem 25 Mg/5 Ml Sdv) 10 mg IV NOW ONE Stop: 05/22/24 19:40 Diltiazem HCl 125 mg/ Sodium (Chloride) 125 mls @ 5 mls/hr IV TITRATE FLORES; Protocol Sodium Chloride (Normal Saline 0.9%) 500 mls @ 1,000 mls/hr IV BOLUS ONE Stop: 05/22/24 21:11 Last Infusion: 05/22/24 21:23 Dose: Infused Documented By: Admin: 05/22/24 20:46 Dose: 1,000 mls/hr Documented By: PETE Vital Signs Vital signs: Vital Signs - 8 hr 05/22/24 19:00 05/22/24 19:57 05/22/24 20:00 Temperature 97.0 F L Pulse Rate 153 H 106 H 108 H Respiratory Rate 15 Blood Pressure 115/76 Pulse Oximetry 93 97 97 Oxygen Delivery Method Room Air 05/22/24 20:00 05/22/24 20:03 05/22/24 20:03 Temperature Pulse Rate 105 H Respiratory Rate Blood Pressure 87/57 L 90/54 L Pulse Oximetry 97 Oxygen Delivery Method 05/22/24 20:04 05/22/24 20:30 05/22/24 20:30 Temperature Pulse Rate 103 H 105 H Respiratory Rate Blood Pressure 90/54 L 91/50 L Pulse Oximetry 98 Oxygen Delivery Method 05/22/24 20:37 05/22/24 20:37 05/22/24 21:00 Temperature Pulse Rate 113 H Respiratory Rate Blood Pressure 85/53 L 87/56 L Pulse Oximetry 98 Oxygen Delivery Method 05/22/24 21:00 05/22/24 21:30 05/22/24 21:30 Temperature Pulse Rate 96 H 93 H Respiratory Rate Blood Pressure 88/57 L Pulse Oximetry 97 97 Oxygen Delivery Method 05/22/24 22:00 05/22/24 22:00 05/22/24 22:30 Temperature Pulse Rate 92 H Respiratory Rate Blood Pressure 97/62 96/63 Pulse Oximetry 97 Oxygen Delivery Method 05/22/24 22:30 05/22/24 23:01 05/22/24 23:02 Temperature Pulse Rate 93 H 93 H Respiratory Rate Blood Pressure 109/75 Pulse Oximetry 96 Oxygen Delivery Method 05/22/24 23:02 Temperature Pulse Rate 93 H Respiratory Rate 18 Blood Pressure Pulse Oximetry 97 Oxygen Delivery Method MDM - Arrhythmia/Palpitations Lab Data Attestation: I reviewed the patient's lab results. Lab results narrative: White blood cell count 61186, hemoglobin 16, platelets adequate. Basic metabolic panel unremarkable, potassium 4.4 noted. Renal function normal. Liver function and lipase normal. BNP not elevated, initial Troponin negative. 05/22/24 19:08 05/22/24 19:08 Labs: Lab Results 05/22/24 05/22/24 Range/Units 19:08 22:22 WBC 12.8 H (4.5-11.0) X10^3/uL RBC 5.10 (4.5-5.9) X10^6/uL Hgb 16.0 (13.5-17.5) g/dL Hct 47.7 (41-53) % MCV 93.5 (80-100) fL MCH 31.4 (26-34) PG MCHC 33.6 (30-36) % RDW 13.4 (11.6-14.8) % Plt Count 311 (150-400) X10^3/uL Neut % (Auto) 59.1 (50-75) % Lymph % (Auto) 28.9 (25-40) % [place] % (Auto) 8.5 (3-14) % Eos % (Auto) 2.6 (2-4) % Baso % (Auto) 0.9 (0-2) % Neut # (Auto) 7500 H (1671-8800) /uL Lymph # (Auto) 3700 (5300-8205) /uL [place] # (Auto) 1100 H (0-900) /uL Eos # (Auto) 300 (0-450) /uL Baso # (Auto) 100 (0-100) /uL PT 13.2 H (9.4-12.5) SECONDS INR 1.2 (0.9-1.3) APTT 40 H (25.1-36.5) SECONDS Sodium 136 L (137-145) mmol/L Potassium 4.4 (3.4-5.1) mmol/L Chloride 103 (98-107) mmol/L Carbon Dioxide 22 (22-32) mmol/L BUN 26 H (9-20) mg/dL Creatinine 1.31 H (0.66-1.25) mg/dL Estimated GFR 58 L (>60) mL/min BUN/Creatinine Ratio 19.8 (6-22) Glucose 148 H (80-110) mg/dL Calcium 9.3 (8.4-10.2) mg/dL Magnesium 1.9 (1.6-2.3) mg/dL Total Bilirubin 0.7 (0.2-1.3) mg/dL AST 33 (17-59) IU/L ALT 32 (<50) IU/L Alkaline Phosphatase 93 (38-126) U/L Total Creatine Kinase 83 (55-170) U/L Troponin I < 0.012 < 0.012 (0.01-0.034) ng/mL NT-Pro-B Natriuret Pep 238 H (<125) pg/mL Total Protein 7.5 (6.3-8.2) g/dL Albumin 4.9 (3.5-5.0) g/dL Globulin 2.6 (1.7-4.1) g/dL Albumin/Globulin Ratio 1.9 (1.0-2.8) Lipase 100 D (23-300) U/L ECG Data Attestation: I personally reviewed and interpreted this ECG as follows: Interpretation: 1910, Atrial flutter with variable AV block, PVC or apparently conducted complexes. Total ventricular response rate 114. Right bundle branch block, left anterior fascicular block. QRS 136, QTC 523. 2310, normal sinus rhythm with rate 94, right bundle branch block noted. HI 142, QRS 136, QTC 507. MDM Narrative Medical decision making narrative: 73-year-old male with history of atrial fibrillation/flutter, prior ablation procedures remote, seen yesterday with recurrence of paroxysmal atrial fibrillation, takes Eliquis chronic anticoagulation, set up was initiated for possible electrical cardioversion, however he converted to sinus rhythm, was observed and discharged home. Now has recurrence of atrial fibrillation symptoms and fast heartbeat sensation after eating full meal 6:30 p.m., seemed to get better, took his evening dose metoprolol, went home, then felt the sensation returned, here with fast/irregular heartbeat sensation again. No syncope or presyncope, no chest pain. EKG shows atrial flutter with variable block, anterior fascicular block noted. We discussed cardioversion, he just ate, he would like to hold off for now, heart rate seems to be improved, no longer 100 and 50s, ventricular response range 100-120s now, after his extra dose of oral metoprolol, we will give evening dose oral metoprolol, and his usual evening Eliquis dose. Initial troponin negative noted, we will repeat interval study. Further observed here for now. Repeat troponin negative. Patient had sensation of cardioversion. Looks like P waves are present on monitor. We will repeat EKG. Repeat EKG does show sinus rhythm, with right bundle branch block. Patient discharged home with family. Follow up with Cardiology, he will call office of Dr. Law tomorrow morning. Return precautions discussed. Continue metoprolol dosing and Eliquis anticoagulation Discharge Plan Departure Patient Disposition: Home Clinical Impression: Paroxysmal atrial fibrillation Instructions: DI for Atrial Fibrillation Activity Restrictions/Additional Instructions: History of prior atrial fibrillation, recently spontaneously converted ED visit yesterday, again had sensation of atrial fibrillation after eating dinner. Taking Eliquis anticoagulation. We did discuss cardioversion but you had just eaten, you had just taken extra dose of metoprolol, your evening metoprolol dose therefore was also given. You had improved heart rate response to atrial fibrillation, not so fast, transient drop in your blood pressure that was likely due to the metoprolol doses, fluids given, improved blood pressure. You had sensation of spontaneous heart rate conversion, in fact on the monitor look like you had sinus rhythm, confirmed on repeat EKG. Troponin blood testing not suggestive of heart attack. Continue your chronic medications including metoprolol and blood thinner medication Eliquis. Continue taking her other chronic medications as planned. Contact the office of your title checker tomorrow morning during Sunday morning hours. Return to this/nearest emergency department for any change or worsening symptoms or any concerns prior Prescriptions: No Action spironolactone 25 mg tablet 12.5 mg PO DAILY dofetilide 250 mcg capsule 250 mcg PO BID atorvastatin 40 mg tablet 40 mg PO BEDTIME Qty: 90 3RF lisinopril 5 mg tablet 5 mg PO DAILY Qty: 90 3RF metoprolol succinate [Toprol XL] 25 mg tablet extended release 24 hr 25 mg PO DAILY Qty: 90 3RF Eliquis 5 mg tablet 5 mg PO BID Referrals: Fernando Law MD [Physician] - Arina Harrell DO [Primary Care Provider] - Stand Alone Forms: Patient Portal/API/Survey
[2024-05-22 19:44] LABS: NT-proBNP (BNP-Adult 18+) 238 pg/mL (<125); Troponin I < 0.012 ng/mL (0.01-0.034)
--- NOTE | 2024-05-22 19:58 | PC.NURSE ---
Pt took routine home evening meds with OK from Dr Elena: metoprolol 25mg tikosyn 250mcg Eliquis 5mg atorvastatin 40mg Plan to hold diltiazem for now, monitor for effect of meds. Remains a fib HR 100-115. Pt denies complaint.
[2024-05-22] MEDS: SODIUM CHLORIDE 0.9% 500 ML 1000 ML IV (20:46)
[2024-05-22 22:58] LABS: Troponin I < 0.012 ng/mL (0.01-0.034)
== END 2024-05-22 23:42 | disposition home or self-care (01) ==
PROVIDERS: Emergency Provider Emergency Medicine; PCP Family Medicine
DX: I48.0 Paroxysmal atrial fibrillation (principal); Z79.01 Long term (current) use of anticoagulants; R07.9 Chest pain, unspecified
CPT/HCPCS: 71045; 80053; 82550; 83690; 83735; 83880; 84484; 85025; 85610; 85730; 93005; 96360; 99284

== ENCOUNTER → 2024-05-29 08:48 | Outpatient (CLI) | payer MEDICARE, OTHER, SELFPAY ==
[2024-05-29 11:27] LABS: Cholesterol 112 mg/dL (140-199); HDL Cholesterol 44 mg/dL (40-60); LDL Cholesterol Calculated 53 mg/dL (<100); Triglycerides 75 mg/dL (35-150)
== END ==
PROVIDERS: PCP Family Medicine; Referring Provider Family Medicine; Visit Provider Family Medicine
DX: Z00.00 Encounter for general adult medical examination without abnormal findings (principal); I42.0 Dilated cardiomyopathy; I50.22 Chronic systolic (congestive) heart failure; E78.5 Hyperlipidemia, unspecified; I48.0 Paroxysmal atrial fibrillation; I11.0 Hypertensive heart disease with heart failure
CPT/HCPCS: 36415; 80061

== ENCOUNTER → 2024-11-26 13:38 | Outpatient (CLI) | payer MEDICARE, OTHER, SELFPAY | PROVIDERS: PCP Family Medicine; Referring Provider Family Medicine; Visit Provider Family Medicine | DX: Z12.11 Encounter for screening for malignant neoplasm of colon (principal) | CPT/HCPCS: 82274 ==

== ENCOUNTER 2024-12-06 20:49 | Inpatient (IN) | payer MEDICARE, OTHER, SELFPAY ==
[2024-12-06] VITALS (24 sets, daily range): BP systolic 89–134; BP diastolic 57–74; PULSE 70–183; RESP 10–21; TEMP 33.8; O2SAT 97–100; BMI 25.0
--- NOTE | 2024-12-06 20:59 | EKG_ITS ---
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
--- NOTE | 2024-12-06 21:00 | PC.NURSE ---
pt placed on the monitor with SVT noted at 180, EKG in progress Dr Gunderson called to the room. 2104 pt given Adenosine 6mg IVP with 10cc flush with no change in rhythm, at 2107 pt c/o nausea with Zofran 4 mg given then Adenosine 12mg given IVP with a rhythm change to ST with frequent PVCs with VS of HR 123 BP 135/78. PT continued to have couplets and triplets pt was given Metoprolol 5 mg IVP vs were 119 121/67 100% on 3Liters at 2111; pt was given Metropolol 5mg again for continuation of the same rhythm @ 2116, vs 116, 134/73 and again at 2121 Metoprolol 5mg was given for the same rhythm with vs 132/66, HR 123 Dr Gunderson decided to observe pt and no further medication was administered at this time pt tolerated procedure well
[2024-12-06] MEDS: ADENOSINE 6 MG/2 ML VIAL IV (21:05)
[2024-12-06] MEDS: ADENOSINE 6 MG/2 ML VIAL 12 MG IV (21:06)
[2024-12-06] MEDS: ONDANSETRON 4 MG/2 ML INJ IV (21:08)
[2024-12-06] MEDS: METOPROLOL TARTRATE 5 MG/5 ML INJ IV ×3 (21:12→21:22)
--- NOTE | 2024-12-06 21:12 | EKG_ITS ---
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
--- NOTE | 2024-12-06 21:19 | EKG_ITS ---
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
--- NOTE | 2024-12-06 21:24 | DI.RAD.S_ITS ---
PROCEDURE: XR CHEST 1V INDICATIONS: Chest Pain, SVT, abd pain TECHNIQUE: One view of the chest was acquired. COMPARISON: [facility], CR, XR CHEST 1V, 05/22/2024, 19:04. [facility], CR, XR CHEST 1V, 05/21/2024, 7:53. FINDINGS: Surgical changes and devices: None. Lungs and pleura: Lungs are clear. No pleural effusions or pneumothorax. Mediastinum: Mediastinal contours appear normal. Heart size is normal. Bones and chest wall: No suspicious bony lesions. Overlying soft tissues appear unremarkable. IMPRESSION: No acute cardiopulmonary abnormality is seen. Dictated by: Juan Diego Castellanos M.D. on 12/06/2024 at 21:39 Approved by: Juan Diego Castellanos M.D. on 12/06/2024 at 21:40
--- NOTE | 2024-12-06 21:28 | ED_ITS ---
HPI - SOB/Dyspnea General Chief Complaint: Arrhythmia/Palpitations Stated Complaint: abd px, racing heart rate x2days Time Seen by Provider: 12/06/24 20:50 History of Present Illness HPI Narrative: 74-year-old gentleman history of hypertension, dyslipidemia, paraxysmal AFib a flutter status post ablation in 2018 and 2019 on chronic anticoagulation with apixaban presents with shortness breath, racing heart rates over the last couple of days ranging from 40s to 180s that resolved on their own.Today heart rate remained in the 180s not feeling well, weak, short of breath and fatigued. He denies active chest pain, cough, sore throat, nausea, vomiting, diaphoresis, and back pain. Other than what is stated 14 point review of system is negative. Related Data Home Medications Medication Instructions Recorded Confirmed apixaban 5 mg tablet (Eliquis) 5 mg PO BID 08/19/19 09/19/24 dofetilide 250 mcg capsule 250 mcg PO BID 09/10/23 09/19/24 spironolactone 25 mg tablet 12.5 mg PO DAILY 09/10/23 09/19/24 metoprolol succinate 50 mg mg PO BID 09/19/24 09/19/24 tablet,extended release 24 hr Previous Rx's Medication Instructions Recorded atorvastatin 40 mg tablet 40 mg PO BEDTIME #90 tabs 09/18/24 lisinopril 5 mg tablet 5 mg PO DAILY #90 tabs 09/19/24 Allergies Allergy/AdvReac Type Severity Reaction Status Date / Time No Known Drug Allergies Allergy Verified 09/19/24 08:49 Review of Systems Review of Systems ROS Unobtainable: All systems reviewed & are unremarkable except as noted in HPI and below Patient History Medical History (Updated 12/07/24 @ 00:00 by Rufino Gunderson DO) Encounter for subsequent annual wellness visit in Medicare patient Benign essential HTN Dilated cardiomyopathy Chronic systolic CHF (congestive heart failure) Subclinical hypothyroidism Hyperlipidemia Chronic systolic heart failure Cardiomyopathy QT prolongation HTN (hypertension) Sinus bradycardia SVT (supraventricular tachycardia) Headache Shortness of breath Paroxysmal atrial fibrillation Surgical History Anesthesia History of radiofrequency ablation procedure for cardiac arrhythmia Left inguinal hernia (2014) Family History Father Diabetes mellitus Social History household members: significant other second hand exposure: No alcohol intake: never substance use type: does not use alcohol intake frequency: holidays/special occasions only Exam Narrative Exam Narrative: GENERAL: [74] year old patient appears stated age. Well-developed patient, in mild distress. HEAD: Atraumatic. Normocephalic. EYES: Pupils equal round and reactive. Extraocular motions intact. No scleral icterus. No injection or drainage. ENT: Nose without bleeding, purulent drainage. Throat without erythema, tonsillar hypertrophy or exudate. Airway patent. NECK: Trachea midline. Non tender CARDIOVASCULAR: Tachycardic Regular rate and rhythm without murmurs, gallops, or rubs. RESPIRATORY: Clear to auscultation. Breath sounds equal bilaterally. No wheezes, rales, or rhonchi. GASTROINTESTINAL: Abdomen soft, non-tender, nondistended. EXTREMITIES: No edema or joint tenderness. BACK: Nontender without deformity or crepitance. No flank tenderness. NEURO: AOx3. SKIN: No rash or erythema of visible areas Initial Vital Signs Initial Vital Signs: Vital Signs Temperature 93 F L 12/06/24 21:00 Pulse Rate 183 H 12/06/24 21:00 Respiratory Rate 18 12/06/24 21:00 Blood Pressure 107/74 12/06/24 21:00 Pulse Oximetry 99 12/06/24 21:00 Oxygen Delivery Method Room Air 12/06/24 21:00 Course Orders Ordered: ED Orders 12/06/24 21:00 Complete Blood Count AUTO DIFF Stat Comprehensive Metabolic Panel Stat Lactate (Lactic Acid) Stat Lipase Stat Magnesium Stat NT-proBNP (BNP-Adult 18+) Stat PTT Partial Thromboplastin Henri Stat Prothrombin Time INR Stat Troponin & CK Cardiac Panel Stat 12/06/24 21:12 EKG-12 Lead Routine 12/06/24 21:19 EKG-12 Lead Routine 12/06/24 21:24 XR chest 1V Stat EKG-12 Lead Stat RT Consult Eval and Treat NOW 12/06/24 21:33 CT angio chest PE protocol Stat 12/06/24 23:15 Trop I [Troponin I] Stat Acetaminophen (Acetaminophen 325 Mg Tablet) 650 mg PO Q6H PRN PRN Reason: Pain, Mild (1-3) Hydrocodone Bitart/Acetaminophen (Hydrocodone/Acet 5/325 Tablet) 1 tab PO Q4H PRN PRN Reason: Pain, Moderate (4-6) Apixaban (Apixaban 5 Mg Tablet) 5 mg PO BID [facility] Atorvastatin Calcium (Atorvastatin 20 Mg Tablet) 40 mg PO BEDTIME [facility] Calcium Carbonate (Calcium Carbonate 500 Mg Tab) 1,000 mg PO Q4HR PRN PRN Reason: Dyspepsia Sodium Chloride (Normal Saline 0.9%) 1,000 mls @ 100 mls/hr IV CONT [facility] Metoprolol Succinate (Metoprolol Er 50 Mg Tablet) 50 mg PO BID [facility] Metoprolol Tartrate (Metoprolol Tartrate 5 Mg/5 Ml Inj) 5 mg IV Q6H PRN PRN Reason: Tachyarrhythmias Naloxone HCl (Naloxone 0.4 Mg/Ml Vial) 0.2 mg IV Q2MIN PRN PRN Reason: Opiate Reversal Ondansetron HCl (Ondansetron 4 Mg/2 Ml Inj) 4 mg IV Q2HR PRN PRN Reason: Nausea And Vomiting Last Admin: 12/06/24 21:08 Dose: 4 mg Documented By: ERNESTINA Ondansetron HCl (Ondansetron 4 Mg/2 Ml Inj) 4 mg IV Q8HR PRN PRN Reason: Nausea And Vomiting Pantoprazole Sodium (Pantoprazole Dr 20 Mg Tablet) 20 mg PO 0600 [facility] Discontinued Medications Adenosine (Adenosine 6 Mg/2 Ml Vial) 6 mg IV NOW ONE Stop: 12/06/24 21:55 Last Admin: 12/06/24 21:05 Dose: 6 mg Documented By: ERNESTINA Adenosine (Adenosine 6 Mg/2 Ml Vial) 12 mg IV NOW ONE Stop: 12/06/24 21:56 Last Admin: 12/06/24 21:06 Dose: 12 mg Documented By: ERNESTINA Aspirin (Aspirin 81 Mg Chew Tab) 324 mg PO NOW ONE Stop: 12/06/24 21:25 Last Admin: 12/06/24 22:10 Dose: 324 mg Documented By: ERNESTINA Metoprolol Tartrate (Metoprolol Tartrate 5 Mg/5 Ml Inj) 5 mg IV Q5M [facility] Stop: 12/06/24 22:11 Last Admin: 12/06/24 21:22 Dose: 5 mg Documented By: Admin: 12/06/24 21:17 Dose: 5 mg Documented By: Admin: 12/06/24 21:12 Dose: 5 mg Documented By: ERNESTINA Vital Signs Vital signs: Vital Signs - 8 hr 12/06/24 21:00 12/06/24 21:09 12/06/24 21:12 Temperature 93 F L Pulse Rate 183 H 124 H Respiratory Rate 18 11 L Blood Pressure 107/74 121/67 Pulse Oximetry 99 100 Oxygen Delivery Method Room Air 12/06/24 21:12 12/06/24 21:17 12/06/24 21:17 Temperature Pulse Rate 132 H 127 H Respiratory Rate 11 L 13 Blood Pressure 134/73 Pulse Oximetry 100 100 Oxygen Delivery Method 12/06/24 21:20 12/06/24 21:20 12/06/24 21:24 Temperature Pulse Rate 115 H Respiratory Rate 11 L Blood Pressure 132/66 122/58 L Pulse Oximetry 100 Oxygen Delivery Method 12/06/24 21:24 12/06/24 21:28 12/06/24 21:28 Temperature Pulse Rate 122 H 121 H Respiratory Rate 15 10 L Blood Pressure 113/59 L Pulse Oximetry 100 100 Oxygen Delivery Method 12/06/24 21:30 12/06/24 21:32 12/06/24 21:32 Temperature Pulse Rate 119 H 121 H Respiratory Rate 12 16 Blood Pressure 104/59 L Pulse Oximetry 100 99 Oxygen Delivery Method 12/06/24 21:36 12/06/24 21:36 12/06/24 21:40 Temperature Pulse Rate 130 H Respiratory Rate 21 Blood Pressure 101/64 105/63 Pulse Oximetry 98 Oxygen Delivery Method 12/06/24 21:40 12/06/24 21:44 12/06/24 21:44 Temperature Pulse Rate 108 H 105 H Respiratory Rate 18 20 Blood Pressure 98/61 Pulse Oximetry 98 97 Oxygen Delivery Method 12/06/24 21:48 12/06/24 21:48 12/06/24 21:52 Temperature Pulse Rate 99 H 93 H Respiratory Rate 21 15 Blood Pressure 99/62 Pulse Oximetry 97 97 Oxygen Delivery Method 12/06/24 21:52 12/06/24 21:54 12/06/24 21:54 Temperature Pulse Rate 101 H Respiratory Rate 10 L Blood Pressure 102/65 96/65 Pulse Oximetry 98 Oxygen Delivery Method 12/06/24 22:00 12/06/24 22:00 12/06/24 22:06 Temperature Pulse Rate 70 95 H Respiratory Rate 11 L Blood Pressure 101/57 L Pulse Oximetry 98 99 Oxygen Delivery Method 12/06/24 22:06 12/06/24 22:15 12/06/24 22:15 Temperature Pulse Rate 93 H Respiratory Rate 10 L Blood Pressure 109/59 L 96/57 L Pulse Oximetry 97 Oxygen Delivery Method 12/06/24 22:30 12/06/24 22:30 12/06/24 22:45 Temperature Pulse Rate 96 H Respiratory Rate 13 Blood Pressure 108/64 103/74 Pulse Oximetry 99 Oxygen Delivery Method 12/06/24 22:45 12/06/24 23:00 12/06/24 23:00 Temperature Pulse Rate 93 H 98 H Respiratory Rate 13 10 L Blood Pressure 100/67 Pulse Oximetry 98 98 Oxygen Delivery Method 12/06/24 23:16 12/06/24 23:16 12/06/24 23:30 Temperature Pulse Rate 108 H 100 H Respiratory Rate 15 20 Blood Pressure 99/57 L Pulse Oximetry 99 98 Oxygen Delivery Method 12/06/24 23:30 12/06/24 23:45 12/06/24 23:45 Temperature Pulse Rate 100 H Respiratory Rate 11 L Blood Pressure 98/63 89/58 L Pulse Oximetry 98 Oxygen Delivery Method MDM - SOB/Dyspnea Lab Data 12/06/24 21:00 12/06/24 21:00 Labs: Lab Results 12/06/24 12/06/24 Range/Units 21:00 23:15 WBC 11.1 H (4.5-11.0) X10^3/uL RBC 5.17 (4.5-5.9) X10^6/uL Hgb 16.4 (13.5-17.5) g/dL Hct 48.0 (41-53) % MCV 92.9 (80-100) fL MCH 31.7 (26-34) PG MCHC 34.1 (30-36) % RDW 13.6 (11.6-14.8) % Plt Count 241 (150-400) X10^3/uL Neut % (Auto) 68.9 (50-75) % Lymph % (Auto) 22.0 L (25-40) % [place] % (Auto) 7.5 (3-14) % Eos % (Auto) 1.1 L (2-4) % Baso % (Auto) 0.5 (0-2) % Neut # (Auto) 7600 H (2350-4899) /uL Lymph # (Auto) 2400 (8466-3294) /uL [place] # (Auto) 800 (0-900) /uL Eos # (Auto) 100 (0-450) /uL Baso # (Auto) 100 (0-100) /uL PT 14.1 H (9.4-12.5) SECONDS INR 1.2 (0.9-1.3) APTT 40 H (25.1-36.5) SECONDS Sodium 137 (137-145) mmol/L Potassium 4.9 (3.4-5.1) mmol/L Chloride 103 (98-107) mmol/L Carbon Dioxide 23 (22-32) mmol/L BUN 27 H (9-20) mg/dL Creatinine 1.38 H (0.66-1.25) mg/dL Estimated GFR 54 L (>60) mL/min BUN/Creatinine Ratio 19.6 (6-22) Glucose 149 H (70-99) mg/dL Lactate 3.0 H 1.1 (0.7-2.1) mmol/L Calcium 9.6 (8.4-10.2) mg/dL Magnesium 1.8 (1.6-2.3) mg/dL Total Bilirubin 0.9 (0.2-1.3) mg/dL AST 32 (17-59) IU/L ALT 37 (<50) IU/L Alkaline Phosphatase 73 (38-126) U/L Total Creatine Kinase 94 (55-170) U/L Troponin I < 0.012 < 0.012 (0.01-0.034) ng/mL NT-Pro-B Natriuret Pep 810 H (<125) pg/mL Total Protein 7.3 (6.3-8.2) g/dL Albumin 4.7 (3.5-5.0) g/dL Globulin 2.6 (1.7-4.1) g/dL Albumin/Globulin Ratio 1.8 (1.0-2.8) Lipase 59 (23-300) U/L Imaging Data Chest x-ray: Radiologist's Impression: [address] [address] XRay Report Signed Patient: Omar Vargas MR#: [id number] : 1950 Acct:[id number] Age/Sex: 74 / M Date of Service: 12/06/24 Loc: ED Accession Number: [id number] Procedure: XR chest 1V Ordering Provider: Rufino Gunderson D.O. PROCEDURE: XR CHEST 1V INDICATIONS: Chest Pain, SVT, abd pain TECHNIQUE: One view of the chest was acquired. COMPARISON: [facility], , XR CHEST 1V, 05/22/2024, 19:04. [facility], CR, XR CHEST 1V, 05/21/2024, 7:53. FINDINGS: Surgical changes and devices: None. Lungs and pleura: Lungs are clear. No pleural effusions or pneumothorax. Mediastinum: Mediastinal contours appear normal. Heart size is normal. Bones and chest wall: No suspicious bony lesions. Overlying soft tissues appear unremarkable. IMPRESSION: No acute cardiopulmonary abnormality is seen. Dictated by: Juan Diego Castellanos M.D. on 12/06/2024 at 21:39 Approved by: Juan Diego Castellanos M.D. on 12/06/2024 at 21:40 CT scan - chest: Radiologist's Impression: [place] [address] CT Scan Report Signed Patient: Omar Vargas MR#: [id number] : 1950 Acct:[id number] Age/Sex: 74 / M Date of Service: 12/06/24 Loc: ED Accession Number: [id number] Procedure: CT angio chest PE protocol Ordering Provider: Rufino Gunderson D.O. PROCEDURE: CT ANGIO CHEST PE PROTOCOL INDICATIONS: SVT/sob TECHNIQUE: After the administration of intravenous contrast, 2 mm thick sections acquired from the pulmonary apices to the posterior costophrenic angles. 3-dimensional maximum intensity projection (MIP) coronal and sagittal reformats were then acquired through the thorax. For radiation dose reduction, the following was used: automated exposure control, adjustment of mA and/or kV according to patient size. COMPARISON: None. FINDINGS: Image quality: Diagnostic. Pulmonary arteries: Pulmonary arteries are normal in size, and demonstrate no intraluminal filling defects to suggest central pulmonary embolism. Lower Neck: No enlarged lymph nodes. Thyroid: No thyroid nodules which require sonographic follow up, per consensus guidelines. Axillae: No enlarged lymph nodes. Chest Wall: Unremarkable. Bones: Unremarkable. Lungs and Pleura: No pneumothorax or pleural effusions. No consolidation or suspicious nodules. Heart: Heart size is enlarged. No pericardial effusion. Thoracic Vessels: No aortic aneurysm. Mediastinum and [place]: No enlarged lymph nodes. Esophagus: No wall thickening. No hiatal hernia. Upper Abdomen: The and subcentimeter hypodensities which are too small to characterize. Visualized upper abdomen solid organs and bowel loops appear normal. IMPRESSION: No pulmonary embolus. No acute pulmonary process. Cardiomegaly, as before. Approved by: Kassie Ramsey M.D.,Ph.D. on 12/06/2024 at 22:24 ECG Data Interpretation: SVT RBBB LAFB BifasicularBlock HR 181 IA undetermined QRS 128 QT 250 Change from May 28, 2024 [facility] Narrative Medical decision making narrative: All lab work, vital signs, nurse triage note, medication list, previous ER visits all reviewed. patient given adenosine 6 mg and then 12 mg as the heart rate was still in the 180s and subsequently came down to 140s 130s and was subsequently given then 5 mg boluses of metoprolol IV for a total of 15 mg for which he is now rate controlled with a heart rate of 90s to 110. differential diagnosis includes SVT, NSTEMI, STEMI, PE, electrolyte derangement, CHF, suboptimal medication therapy. Case discussed with Dr. Rodriguez hospitalist who has graciously accepted patient for inpatient admission. Discharge Plan Departure Patient Disposition: Admitted As Inpatient Clinical Impression: SVT (supraventricular tachycardia) Admit Date/Time: 12/06/24 23:55 Admit Provider: Michael Brar
--- NOTE | 2024-12-06 21:33 | DI.CT.S_ITS ---
PROCEDURE: CT ANGIO CHEST PE PROTOCOL INDICATIONS: SVT/sob TECHNIQUE: After the administration of intravenous contrast, 2 mm thick sections acquired from the pulmonary apices to the posterior costophrenic angles. 3-dimensional maximum intensity projection (MIP) coronal and sagittal reformats were then acquired through the thorax. For radiation dose reduction, the following was used: automated exposure control, adjustment of mA and/or kV according to patient size. COMPARISON: None. FINDINGS: Image quality: Diagnostic. Pulmonary arteries: Pulmonary arteries are normal in size, and demonstrate no intraluminal filling defects to suggest central pulmonary embolism. Lower Neck: No enlarged lymph nodes. Thyroid: No thyroid nodules which require sonographic follow up, per consensus guidelines. Axillae: No enlarged lymph nodes. Chest Wall: Unremarkable. Bones: Unremarkable. Lungs and Pleura: No pneumothorax or pleural effusions. No consolidation or suspicious nodules. Heart: Heart size is enlarged. No pericardial effusion. Thoracic Vessels: No aortic aneurysm. Mediastinum and Deisy: No enlarged lymph nodes. Esophagus: No wall thickening. No hiatal hernia. Upper Abdomen: The and subcentimeter hypodensities which are too small to characterize. Visualized upper abdomen solid organs and bowel loops appear normal. IMPRESSION: No pulmonary embolus. No acute pulmonary process. Cardiomegaly, as before. Approved by: Kassie Ramsey M.D.,Ph.D. on 12/06/2024 at 22:24
[2024-12-06 21:35] LABS: INR 1.2 (0.9-1.3); Prothrombin Time 14.1 SECONDS (9.4-12.5)
[2024-12-06 21:37] LABS: Add Manual Diff / Slide Review NO; Basophils Absolute Auto 100 /uL (0-100); Basophils Percent Auto 0.5 % (0-2); Eosinophils Absolute Auto 100 /uL (0-450); Eosinophils Percent Auto 1.1 % (2-4); Hemoglobin 16.4 g/dL (13.5-17.5); Lymphocytes Absolute Auto 2400 /uL (1100-4500); Mean Corpuscular HGB Conc 34.1 % (30-36); Mean Corpuscular Hemoglobin 31.7 PG (26-34); Mean Corpuscular Volume 92.9 fL (80-100); Monocytes Absolute Auto 800 /uL (0-900); Monocytes Percent Auto 7.5 % (3-14); Neutrophils Absolute Auto 7600 /uL (1500-7000); Neutrophils Percent Auto 68.9 % (50-75); Platelet Count 241 X10^3/uL (150-400); Red Blood Cell Count 5.17 X10^6/uL (4.5-5.9); Red Cell Distribution Width 13.6 % (11.6-14.8); White Blood Cell Count 11.1 X10^3/uL (4.5-11.0)
[2024-12-06 21:38] LABS: PTT Partial Thromboplastin Tim 40 SECONDS (25.1-36.5)
[2024-12-06 21:40] LABS: Alanine Aminotransferase 37 IU/L (<50); Albumin 4.7 g/dL (3.5-5.0); Albumin Globulin Ratio 1.8 (1.0-2.8); Alkaline Phosphatase 73 U/L (38-126); Aspartate Aminotransferase 32 IU/L (17-59); BUN Creatinine Ratio 19.6 (6-22); Bilirubin Total 0.9 mg/dL (0.2-1.3); Blood Urea Nitrogen 27 mg/dL (9-20); Calcium 9.6 mg/dL (8.4-10.2); Carbon Dioxide 23 mmol/L (22-32); Chloride 103 mmol/L (98-107); Creatine Kinase 94 U/L (55-170); Estimated Glomerular Filt Rate 54 mL/min (>60); Globulin 2.6 g/dL (1.7-4.1); Glucose 149 mg/dL (70-99); HEMOLYSIS < 15 (0-50); Lipase 59 U/L (23-300); Magnesium 1.8 mg/dL (1.6-2.3); Potassium 4.9 mmol/L (3.4-5.1); Sodium 137 mmol/L (137-145); Total Protein 7.3 g/dL (6.3-8.2)
[2024-12-06 21:52] LABS: NT-proBNP (BNP-Adult 18+) 810 pg/mL (<125); Troponin I < 0.012 ng/mL (0.01-0.034)
[2024-12-06] MEDS: ASPIRIN 81 MG CHEW TAB 324 MG PO (22:10)
[2024-12-06 23:06] LABS: Reflexed Lactate in 2 Hours Y
[2024-12-06 23:54] LABS: Lactate 2HR (Lactic Acid Rflx) 1.1 mmol/L (0.7-2.1)
[2024-12-07] VITALS (15 sets, daily range): BP systolic 89–112; BP diastolic 56–75; PULSE 81–105; RESP 12–22; TEMP 36.2–36.9; O2SAT 96–99; BMI 25.0
[2024-12-07 00:07] LABS: Troponin I < 0.012 ng/mL (0.01-0.034)
[2024-12-07] MEDS: SODIUM CHLORIDE 0.9% 1,000 ML 100 ML IV (01:15)
--- NOTE | 2024-12-07 03:30 | PC.NURSE ---
Pt stood at bedside to use urinal. Vtach On tele HR is 180s with movement. Pt back in bed and HR is down to low 100s. Asymptomatic. Notified Dr. Brar and patient was seen.
--- NOTE | 2024-12-07 03:55 | P.HP_ITS ---
History of Present Illness History of Present Illness Date Patient Seen: 12/07/24 Time Patient Seen: 03:56 Date of Onset of Symptoms: 12/03/24 Chief complaint: abd px, racing heart rate x2days Narrative: The pt is a 74 yo with a known hx of a-fib dx in 2011 who is currently on metoprolol, Tikosyn, Eliquis starting having palpatations, mild nausea, weakness with only a few emesis. He denies any recent illnesses, change in meds, change in life style or stressors. He is normally very active and has been working in the yard this week doing some thereNowing. He comes [facility] ER [facility], 12/06 c/o tachycardia with HR at home of 180, nausea, that has been persistent all day. He denies any chest pain, [place], lightheadedness, pain in arm or neck/jaw. No ETOH/ Tob use, [facility] Medical History (Updated 12/07/24 @ 00:00 by Rufino Gunderson DO) Encounter for subsequent annual wellness visit in Medicare patient Benign essential HTN Dilated cardiomyopathy Chronic systolic CHF (congestive heart failure) Subclinical hypothyroidism Hyperlipidemia Chronic systolic heart failure Cardiomyopathy QT prolongation HTN (hypertension) Sinus bradycardia SVT (supraventricular tachycardia) Headache Shortness of breath Paroxysmal atrial fibrillation Surgical History Anesthesia History of radiofrequency ablation procedure for cardiac arrhythmia Left inguinal hernia (2014) Family History Father Diabetes mellitus Social History household members: significant other Smoking Status: Never smoker second hand exposure: No alcohol intake: never substance use type: does not use Meds Home Medications and Allergies Home Medications Medication Instructions Recorded Confirmed Type apixaban 5 mg tablet (Eliquis) 5 mg PO BID 08/19/19 12/07/24 History dofetilide 250 mcg capsule 250 mcg PO BID 09/10/23 12/07/24 History spironolactone 25 mg tablet 12.5 mg PO DAILY 09/10/23 12/07/24 History atorvastatin 40 mg tablet 40 mg PO BEDTIME #90 tabs 09/18/24 12/07/24 Rx lisinopril 5 mg tablet 5 mg PO DAILY #90 tabs 09/19/24 12/07/24 Rx metoprolol succinate 50 mg 50 mg PO BID 09/19/24 12/07/24 History tablet,extended release 24 hr (Toprol XL) Allergies Allergy/AdvReac Type Severity Reaction Status Date / Time No Known Drug Allergies Allergy Verified 09/19/24 08:49 Exam Vital Signs (past 8 hours): - 12/06/24 21:00 12/06/24 21:09 12/06/24 21:12 Temperature 93 F L Pulse Rate 183 H 124 H Respiratory Rate 18 11 L Blood Pressure 107/74 121/67 Pulse Oximetry 99 100 Oxygen Delivery Method Room Air Oxygen Flow Rate 12/06/24 21:12 12/06/24 21:17 12/06/24 21:17 Temperature Pulse Rate 132 H 127 H Respiratory Rate 11 L 13 Blood Pressure 134/73 Pulse Oximetry 100 100 Oxygen Delivery Method Oxygen Flow Rate 12/06/24 21:20 12/06/24 21:20 12/06/24 21:24 Temperature Pulse Rate 115 H Respiratory Rate 11 L Blood Pressure 132/66 122/58 L Pulse Oximetry 100 Oxygen Delivery Method Oxygen Flow Rate 12/06/24 21:24 12/06/24 21:28 12/06/24 21:28 Temperature Pulse Rate 122 H 121 H Respiratory Rate 15 10 L Blood Pressure 113/59 L Pulse Oximetry 100 100 Oxygen Delivery Method Oxygen Flow Rate 12/06/24 21:30 12/06/24 21:32 12/06/24 21:32 Temperature Pulse Rate 119 H 121 H Respiratory Rate 12 16 Blood Pressure 104/59 L Pulse Oximetry 100 99 Oxygen Delivery Method Oxygen Flow Rate 12/06/24 21:36 12/06/24 21:36 12/06/24 21:40 Temperature Pulse Rate 130 H Respiratory Rate 21 Blood Pressure 101/64 105/63 Pulse Oximetry 98 Oxygen Delivery Method Oxygen Flow Rate 12/06/24 21:40 12/06/24 21:44 12/06/24 21:44 Temperature Pulse Rate 108 H 105 H Respiratory Rate 18 20 Blood Pressure 98/61 Pulse Oximetry 98 97 Oxygen Delivery Method Oxygen Flow Rate 12/06/24 21:48 12/06/24 21:48 12/06/24 21:52 Temperature Pulse Rate 99 H 93 H Respiratory Rate 21 15 Blood Pressure 99/62 Pulse Oximetry 97 97 Oxygen Delivery Method Oxygen Flow Rate 12/06/24 21:52 12/06/24 21:54 12/06/24 21:54 Temperature Pulse Rate 101 H Respiratory Rate 10 L Blood Pressure 102/65 96/65 Pulse Oximetry 98 Oxygen Delivery Method Oxygen Flow Rate 12/06/24 22:00 12/06/24 22:00 12/06/24 22:06 Temperature Pulse Rate 70 95 H Respiratory Rate 11 L Blood Pressure 101/57 L Pulse Oximetry 98 99 Oxygen Delivery Method Oxygen Flow Rate 12/06/24 22:06 12/06/24 22:15 12/06/24 22:15 Temperature Pulse Rate 93 H Respiratory Rate 10 L Blood Pressure 109/59 L 96/57 L Pulse Oximetry 97 Oxygen Delivery Method Oxygen Flow Rate 12/06/24 22:30 12/06/24 22:30 12/06/24 22:45 Temperature Pulse Rate 96 H Respiratory Rate 13 Blood Pressure 108/64 103/74 Pulse Oximetry 99 Oxygen Delivery Method Oxygen Flow Rate 12/06/24 22:45 12/06/24 23:00 12/06/24 23:00 Temperature Pulse Rate 93 H 98 H Respiratory Rate 13 10 L Blood Pressure 100/67 Pulse Oximetry 98 98 Oxygen Delivery Method Oxygen Flow Rate 12/06/24 23:16 12/06/24 23:16 12/06/24 23:30 Temperature Pulse Rate 108 H 100 H Respiratory Rate 15 20 Blood Pressure 99/57 L Pulse Oximetry 99 98 Oxygen Delivery Method Oxygen Flow Rate 12/06/24 23:30 12/06/24 23:45 12/06/24 23:45 Temperature Pulse Rate 100 H Respiratory Rate 11 L Blood Pressure 98/63 89/58 L Pulse Oximetry 98 Oxygen Delivery Method Oxygen Flow Rate 12/07/24 00:00 12/07/24 00:00 12/07/24 00:07 Temperature Pulse Rate 100 H Respiratory Rate 13 Blood Pressure 89/69 L 98/56 L Pulse Oximetry 98 Oxygen Delivery Method Oxygen Flow Rate 12/07/24 00:07 12/07/24 00:15 12/07/24 00:15 Temperature Pulse Rate 100 H 102 H Respiratory Rate 14 14 Blood Pressure 100/62 Pulse Oximetry 99 98 Oxygen Delivery Method Room Air Oxygen Flow Rate 12/07/24 00:20 12/07/24 00:30 12/07/24 00:30 Temperature Pulse Rate 105 H Respiratory Rate 12 Blood Pressure 99/63 Pulse Oximetry 97 Oxygen Delivery Method Room Air Oxygen Flow Rate 12/07/24 00:48 12/07/24 01:00 Temperature 97.3 F L Pulse Rate 86 Respiratory Rate 20 Blood Pressure 106/70 Pulse Oximetry 98 97 Oxygen Delivery Method Room Air Oxygen Flow Rate 0 Oxygen Delivery Method Room Air Oxygen Flow Rate 0 Const General: cooperative, healthy appearing and comfortable Resp Auscultation: clear to auscultation bilaterally Cardio Rate: abnormal rate and tachycardic Rhythm: abnormal rhythm Heart Sounds: S1 normal and S2 normal Extrem General: normal to inspection and No edema Objective Labs 12/06/24 21:00 12/06/24 21:00 Labs: Laboratory Results - last 24 hr 12/06/24 12/06/24 21:00 23:15 WBC 11.1 H RBC 5.17 Hgb 16.4 Hct 48.0 MCV 92.9 MCH 31.7 MCHC 34.1 RDW 13.6 Plt Count 241 Neut % (Auto) 68.9 Lymph % (Auto) 22.0 L [place] % (Auto) 7.5 Eos % (Auto) 1.1 L Baso % (Auto) 0.5 Neut # (Auto) 7600 H Lymph # (Auto) 2400 [place] # (Auto) 800 Eos # (Auto) 100 Baso # (Auto) 100 PT 14.1 H INR 1.2 APTT 40 H Sodium 137 Potassium 4.9 Chloride 103 Carbon Dioxide 23 BUN 27 H Creatinine 1.38 H Estimated GFR 54 L BUN/Creatinine Ratio 19.6 Glucose 149 H Lactate 3.0 H 1.1 Calcium 9.6 Magnesium 1.8 Total Bilirubin 0.9 AST 32 ALT 37 Alkaline Phosphatase 73 Total Creatine Kinase 94 Troponin I < 0.012 < 0.012 NT-Pro-B Natriuret Pep 810 H Total Protein 7.3 Albumin 4.7 Globulin 2.6 Albumin/Globulin Ratio 1.8 Lipase 59 Assessment & Plan Assessment & Plan narrative: 1. atrial Fibrillation- he is being monitored on telemetry, we have given him 2 doses of Adenosine in the ER which brought down his HR, as well as 3 doses of metroprolol 5mg IV in the ER. Early this morning while using the toilet he went into a short run of V-tach but was asymptomatic. He is already on Tikosyn and it is possible he skipped a does today he said. While on Tikosyn, I do not feel comfortable adding on another meds such as Amiodarone, since he is asymptomatic. I have restarted his home meds, including the 50 mg of metoprolol, will monitor closely. We are trying to find out if his primary cardiology has privileges here, Dr. Zhang. (?) I have reviewed the labs which are normal. Troponin is <0.012 twice, normal BNP, electrolytes normal. 2. Dilated Cardiomyopathy- last echo revewed with only partially reduced EF, on tele, 3. CKD stage III- unknown basline, Cr is 1.34, holdilng the lisinopril, 4. HTN- Time-Based Coding :: [TOTAL MINUTES] spent with patient and on the chart (including review of chart, obtaining history, exam, reviewing outside data, placing orders, documenting exam and treatment plan, and counseling patient) on [DATE].
[2024-12-07 05:14] LABS: Add Manual Diff / Slide Review NO; Basophils Absolute Auto 100 /uL (0-100); Basophils Percent Auto 0.7 % (0-2); Eosinophils Absolute Auto 100 /uL (0-450); Eosinophils Percent Auto 1.3 % (2-4); Hematocrit 41.4 % (41-53); Hemoglobin 14.5 g/dL (13.5-17.5); Lymphocytes Absolute Auto 2300 /uL (1100-4500); Lymphocytes Percent Auto 23.3 % (25-40); Mean Corpuscular Hemoglobin 32.1 PG (26-34); Mean Corpuscular Volume 91.8 fL (80-100); Monocytes Absolute Auto 800 /uL (0-900); Monocytes Percent Auto 8.3 % (3-14); Neutrophils Absolute Auto 6600 /uL (1500-7000); Neutrophils Percent Auto 66.4 % (50-75); Platelet Count 203 X10^3/uL (150-400); Red Blood Cell Count 4.51 X10^6/uL (4.5-5.9); Red Cell Distribution Width 13.4 % (11.6-14.8)
[2024-12-07 05:54] LABS: BUN Creatinine Ratio 23.3 (6-22); Blood Urea Nitrogen 24 mg/dL (9-20); Calcium 8.7 mg/dL (8.4-10.2); Carbon Dioxide 20 mmol/L (22-32); Chloride 108 mmol/L (98-107); Estimated Glomerular Filt Rate > 60 mL/min (>60); Glucose 86 mg/dL (70-99); HEMOLYSIS 20 (0-50); Potassium 4.2 mmol/L (3.4-5.1); Sodium 136 mmol/L (137-145)
[2024-12-07 06:03] LABS: NT-proBNP (BNP-Adult 18+) 850 pg/mL (<125)
[2024-12-07] MEDS: PANTOPRAZOLE DR 20 MG TABLET PO (06:22)
--- NOTE | 2024-12-07 08:06 | EKG_ITS ---
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
[2024-12-07] MEDS: METOPROLOL TARTRATE 5 MG/5 ML INJ IV (08:29)
[2024-12-07] MEDS: METOPROLOL ER 50 MG TABLET PO (08:31)
[2024-12-07] MEDS: APIXABAN 5 MG TABLET PO (08:31)
--- NOTE | 2024-12-07 08:59 | PC.NURSE ---
0850 - Patient transferred from 220 to 231, ICU, due to SVT sustained 180's per Dr Orozco. HR 88, sinus rhythm, upon arrival. A/O x4, all other vitals stable. NS Infusing @ 100ml/hr to right AC.
[2024-12-07] MEDS: DOFETILIDE 250 MCG 250 EACH PO (09:00)
--- NOTE | 2024-12-07 09:04 | PC.NURSE ---
Patient is A&OX4, on RA, initially HR 80's however was informed by broke worker RN with any activity such as standing up at the edge of the bed to use the urinal patient has been converting to SVT HR 160's-180's. He denies dizziness, palpitations, sweating, SOB or chest pain. He then was rolling to use the urinal in bed this a.m. and RN was Informed by [employer] patient was in SVT . MD notified and EKG ordered however patient converted back to SR HR 80's. Per new orders IV metoprolol 5 mg IV given. While eating breakfast while giving IV metoprolol he converted back to SVT in the 180's. MD at bedside ordered diltiazem, repeat EKG and transfer to ICU. Prior to transfer he converted back to NSR and diltiazem held. Patient transferred to ICU at approximately 0845
--- NOTE | 2024-12-07 11:41 | P.DS_ITS ---
History of Present Illness History of Present Illness Date Patient Seen: 12/07/24 Chief complaint: abd px, racing heart rate x2days Narrative: Chief complaint: Tachycardia 180 history of SVT palpitations and abdominal discomfort History of present illness: he pt is a 74 yo with a known hx of a-fib dx in 2011 who is currently on metoprolol, Tikosyn, Eliquis starting having palpatations, mild nausea, weakness with only a few emesis. He denies any recent illnesses, change in meds, change in life style or stressors. He is normally very active and has been working in the yard this week doing some [employer]. [facility]/o tachycardia with HR at home of 180, nausea, that has been persistent all day. He denies any chest pain, [place], lightheadedness, pain in arm or neck/jaw. No ETOH/ Tob use, Findings in the emergency room notable for tachycardia with wide complex interpreted as SVT. CT angio of the chest was negative for PE troponin negative Emergency room course: patient given adenosine 6 mg and then 12 mg as the heart rate was still in the 180s and subsequently came down to 140s 130s and was subsequently given then 5 mg boluses of metoprolol IV for a total of 15 mg for which he is now rate controlled with a heart rate of 90s to 110. differential diagnosis includes SVT, NSTEMI, STEMI, PE, electrolyte derangement, CHF, suboptimal medication therapy. Case discussed with Dr. Rodriguez hospitalist who has graciously accepted patient for inpatient admission. EKG interpreted as sinus rhythm last night. However, upon further review it is apparent that the patient is not in sinus rhythm and has an atrial tachycardia with clear P waves rate 130 unknown rhythm with variable block that is unstable and increases to rate of 130-180 with any type of activity 1. Atrial tachycardia unknown rhythm status post 2 doses of Adenosine in the ER which brought down his HR, as well as 3 doses of metroprolol 5mg IV in the ER. Early this morning while using the toilet he went into a short run of V-tach but was asymptomatic. He is already on Tikosyn and it is possible he skipped a does today he said. While on Tikosyn, I do not feel comfortable adding on another meds such as Amiodarone, since he is asymptomatic. I have restarted his home meds, including the 50 mg of metoprolol, case discussed with Cardiology and hospitalist at [facility] in [place] where his crew foreman Dr. Rufino Prado has treated him in the past. He was graciously accepted to to that institution for management of this arrhythmia 2. SVT versus sinus arrhythmia tachycardia 130 with variable conduction unstable despite IV Lopressor Adenocard Tikosyn with history of ablation in the past accepted in transfer to [facility] 3. Dilated Cardiomyopathy- last echo revewed with only partially reduced EF, on tele, 4. CKD stage III- unknown basline, Cr is 1.34, holdilng the lisinopril, Time-Based Coding :: 75 minutes spent with patient and on the chart (including review of chart, obtaining history, exam, reviewing outside data, placing orders, documenting exam and treatment plan, and counseling patient) . Discharge Providers Provider Date of admission: 12/06/24 23:55 Discharge Date: 12/07/24 Primary care physician: Arina Harrell DO Discharge provider: Maurisio Orozco MD Exam Vital Signs (past 8 hours): - 12/07/24 04:00 12/07/24 04:06 12/07/24 08:00 Temperature 97.1 F L 98.0 F Pulse Rate 87 85 Respiratory Rate 20 18 Blood Pressure 112/72 111/73 Pulse Oximetry 96 96 97 Oxygen Delivery Method Room Air 12/07/24 08:40 12/07/24 09:00 12/07/24 09:06 Temperature 98.3 F Pulse Rate 88 81 Respiratory Rate 22 Blood Pressure 112/73 112/73 Pulse Oximetry 99 96 Oxygen Delivery Method Room Air 12/07/24 09:40 12/07/24 11:00 Temperature Pulse Rate 90 89 Respiratory Rate 18 16 Blood Pressure 98/70 99/61 Pulse Oximetry 96 97 Oxygen Delivery Method Oxygen Delivery Method Room Air Oxygen Flow Rate 0 Objective Labs 12/07/24 04:44 12/07/24 04:44 Labs: Laboratory Results - last 24 hr 12/06/24 12/06/24 12/07/24 21:00 23:15 04:44 WBC 11.1 H 10.0 RBC 5.17 4.51 Hgb 16.4 14.5 Hct 48.0 41.4 MCV 92.9 91.8 MCH 31.7 32.1 MCHC 34.1 35.0 RDW 13.6 13.4 Plt Count 241 203 Neut % (Auto) 68.9 66.4 Lymph % (Auto) 22.0 L 23.3 L [place] % (Auto) 7.5 8.3 Eos % (Auto) 1.1 L 1.3 L Baso % (Auto) 0.5 0.7 Neut # (Auto) 7600 H 6600 Lymph # (Auto) 2400 2300 [place] # (Auto) 800 800 Eos # (Auto) 100 100 Baso # (Auto) 100 100 PT 14.1 H INR 1.2 APTT 40 H Sodium 137 136 L Potassium 4.9 4.2 Chloride 103 108 H Carbon Dioxide 23 20 L BUN 27 H 24 H Creatinine 1.38 H 1.03 Estimated GFR 54 L > 60 BUN/Creatinine Ratio 19.6 23.3 H Glucose 149 H 86 Lactate 3.0 H 1.1 Calcium 9.6 8.7 Magnesium 1.8 Total Bilirubin 0.9 AST 32 ALT 37 Alkaline Phosphatase 73 Total Creatine Kinase 94 Troponin I < 0.012 < 0.012 NT-Pro-B Natriuret Pep 810 H 850 H Total Protein 7.3 Albumin 4.7 Globulin 2.6 Albumin/Globulin Ratio 1.8 Lipase 59 PFSH Medical History (Updated 12/07/24 @ 00:00 by Rufino Gunderson DO) Encounter for subsequent annual wellness visit in Medicare patient Benign essential HTN Dilated cardiomyopathy Chronic systolic CHF (congestive heart failure) Subclinical hypothyroidism Hyperlipidemia Chronic systolic heart failure Cardiomyopathy QT prolongation HTN (hypertension) Sinus bradycardia SVT (supraventricular tachycardia) Headache Shortness of breath Paroxysmal atrial fibrillation Surgical History Anesthesia History of radiofrequency ablation procedure for cardiac arrhythmia Left inguinal hernia (2014) Family History Father Diabetes mellitus Social History household members: significant other Smoking Status: Never smoker second hand exposure: No alcohol intake: never substance use type: does not use Discharge Plan Discharge Plan Patient Disposition: General Acute Hospital Other facility: [facility] Data Primary Care Provider: Arina Harrell
== END 2024-12-07 12:37 | disposition short-term general hospital (02) | DRG 309 ==
LOC: ED 20:55 → AC 23:58 → ICU 12-07 09:23
PROVIDERS: Admitting Provider Internal Medicine; Emergency Provider Family Medicine; PCP Family Medicine; Referring Provider Family Medicine; Visit Provider Internal Medicine
DX: I47.19 Other supraventricular tachycardia (principal); I13.0 Hypertensive heart and chronic kidney disease with heart failure and stage 1 through stage 4 chronic kidney disease, or unspecified chronic kidney disease; I50.22 Chronic systolic (congestive) heart failure; I42.0 Dilated cardiomyopathy; I47.10 Supraventricular tachycardia, unspecified; I48.91 Unspecified atrial fibrillation; N18.30 Chronic kidney disease, stage 3 unspecified; Z79.01 Long term (current) use of anticoagulants
CPT/HCPCS: 36415; 71045; 71275; 80048; 80053; 82550; 83605; 83690; 83735; 83880; 84484; 85025; 85610; 85730; 93005; 96374; 96375; 99284; J0153; J2405; Q9967

== ENCOUNTER 2025-01-17 03:36 | Emergency (ER) | payer MEDICARE, OTHER, SELFPAY ==
[2024-12-07 00:20] VITALS: BMI 25.0
[2025-01-17] VITALS (35 sets, daily range): BP systolic 85–133; BP diastolic 49–82; PULSE 56–70; RESP 14–25; TEMP 36.7; O2SAT 92–98; BMI 25.7
--- NOTE | 2025-01-17 03:39 | EKG_ITS ---
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
--- NOTE | 2025-01-17 03:43 | EKG_ITS ---
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
--- NOTE | 2025-01-17 03:43 | ED.CHESTPAIN ---
HPI - Chest Pain <Rufino Gunderson, DO - Last Filed: 01/17/25 04:04> General Chief Complaint: Chest Pain Stated Complaint: Chest Pain Time Seen by Provider: 01/17/25 03:38 History of Present Illness HPI narrative: 74-year-old gentleman history of atrial flutter fibrillation status post ablation this past with on chronic anticoagulation with apixaban, QT prolongation, hypertension, chronic systolic heart failure, mitral valve regurgitation with mitral valve prolapse, dilated cardiomyopathy presents with midsternal chest pain described as tightness feels short of breath with deep inspiration since 8:00 p.m. last night and worse at this moment. He has not taken anything for other than his regular medicines. Patient reports he has an upcoming follow up appointment this Sunday with Dr. Prado regarding the ablation and that he will need a pacemaker defibrillator down the road per the discharge instruction. Other than what is stated 14 point review of system is negative. Related Data Home Medications ?Medication ?Instructions ?Recorded ?Confirmed apixaban 5 mg tablet (Eliquis) 5 mg PO BID 08/19/19 12/07/24 dofetilide 250 mcg capsule 250 mcg PO BID 09/10/23 12/07/24 spironolactone 25 mg tablet 12.5 mg PO DAILY 09/10/23 12/07/24 metoprolol succinate 50 mg 50 mg PO BID 09/19/24 12/07/24 tablet,extended release 24 hr (Toprol XL) Previous Rx's ?Medication ?Instructions ?Recorded atorvastatin 40 mg tablet 40 mg PO BEDTIME #90 tabs 09/18/24 lisinopril 5 mg tablet 5 mg PO DAILY #90 tabs 09/19/24 oxycodone-acetaminophen 5 mg-325 1 tab PO Q6H PRN pain #14 tabs 01/17/25 mg tablet Allergies Allergy/AdvReac Type Severity Reaction Status Date / Time No Known Drug Allergies Allergy Verified 01/17/25 03:41 Review of Systems <Rufino Gunderson, DO - Last Filed: 01/17/25 04:04> Review of Systems ROS Unobtainable: All systems reviewed & are unremarkable except as noted in HPI and below Patient History <Rufino Gunderson, DO - Last Filed: 01/17/25 04:04> Medical History (Updated 01/17/25 @ 10:45 by Yina Robert MD) Encounter for subsequent annual wellness visit in Medicare patient Benign essential HTN Dilated cardiomyopathy Chronic systolic CHF (congestive heart failure) Subclinical hypothyroidism Hyperlipidemia Chronic systolic heart failure Cardiomyopathy QT prolongation HTN (hypertension) Sinus bradycardia SVT (supraventricular tachycardia) Headache Shortness of breath Paroxysmal atrial fibrillation Surgical History Anesthesia History of radiofrequency ablation procedure for cardiac arrhythmia Left inguinal hernia (2014) Family History Father Diabetes mellitus Social History household members: significant other Smoking Status: Never smoker second hand exposure: No alcohol intake: never substance use type: does not use alcohol intake frequency: holidays/special occasions only Exam <Rufino Gunderson DO - Last Filed: 01/17/25 04:04> Narrative Exam Narrative: GENERAL: [74] year old patient appears stated age. Well-developed patient, in mild distress. HEAD: Atraumatic. Normocephalic. EYES: Pupils equal round and reactive. Extraocular motions intact. No scleral icterus. No injection or drainage. ENT: Nose without bleeding, purulent drainage. Throat without erythema, tonsillar hypertrophy or exudate. Airway patent. NECK: Trachea midline. Non tender CARDIOVASCULAR: Regular rate and rhythm without murmurs, gallops, or rubs. RESPIRATORY: Clear to auscultation. Breath sounds equal bilaterally. No wheezes, rales, or rhonchi. GASTROINTESTINAL: Abdomen soft, non-tender, nondistended. EXTREMITIES: No edema or joint tenderness. BACK: Nontender without deformity or crepitance. No flank tenderness. NEURO: AOx3. SKIN: No rash or erythema of visible areas Initial Vital Signs Initial Vital Signs: Vital Signs Pulse Rate 68 01/17/25 03:39 Blood Pressure 133/66 01/17/25 03:39 Pulse Oximetry 98 01/17/25 03:39 <Yina Robert MD - Last Filed: 01/17/25 10:47> Initial Vital Signs Initial Vital Signs: Vital Signs Pulse Rate 68 01/17/25 03:39 Blood Pressure 133/66 01/17/25 03:39 Pulse Oximetry 98 01/17/25 03:39 Scores <Rufino Gunderson DO - Last Filed: 01/17/25 04:04> HEART Score Heart Score history: Moderately Suspicious Heart Score EKG: Non-Specific repolarization disturbance Heart Score Age: > or = 65 years old Heart Score risk factors: > 3 risk factors or hx of atherosclerotic disease Heart Score troponin: < or = to normal limit Heart Score Total: 6 <Yina Robert MD - Last Filed: 01/17/25 10:47> HEART Score Heart Score Total: 6 Course <Rufino Gunderson DO - Last Filed: 01/17/25 04:04> Orders Ordered: ED Orders 01/17/25 03:39 EKG-12 Lead Stat 01/17/25 03:43 EKG-12 Lead Routine 01/17/25 03:50 Complete Blood Count AUTO DIFF Stat Comprehensive Metabolic Panel Stat Lipase Stat Troponin & CK Cardiac Panel Stat 01/17/25 04:03 XR chest 1V Stat 01/17/25 05:46 Trop I [Troponin I] Stat 01/17/25 07:58 CT chest w con Stat Nitroglycerin (Nitroglycerin 0.4 Mg Sl Tab) 0.4 mg SL [id number] PRN PRN Reason: chest pain Last Admin: 01/17/25 04:18 Dose: 0.4 mg Documented By: AUGIE Discontinued Medications Aspirin (Aspirin 81 Mg Chew Tab) 324 mg PO NOW ONE Stop: 01/17/25 04:04 Last Admin: 01/17/25 04:17 Dose: 324 mg Documented By: AUGIE Al Hydrox/Mg Hydrox/Simethicone 20 ml/ Lidocaine HCl 15 ml 0 ml PO NOW ONE Stop: 01/17/25 07:59 Last Admin: 01/17/25 08:35 Dose: 35 ml Documented By: FLOYD Dexamethasone (Dexamethasone 10 Mg/Ml Vial) 10 mg IV NOW ONE Stop: 01/17/25 08:09 Last Admin: 01/17/25 08:35 Dose: 10 mg Documented By: FLOYD Sodium Chloride (Normal Saline 0.9%) 1,000 mls @ 1,000 mls/hr IV BOLUS ONE Stop: 01/17/25 08:57 Last Infusion: 01/17/25 09:37 Dose: Infused Documented By: Admin: 01/17/25 08:35 Dose: 1,000 mls/hr Documented By: FLOYD Vital Signs Vital signs: Vital Signs - 8 hr 01/17/25 03:39 01/17/25 03:39 01/17/25 03:41 Temperature 98.0 F Pulse Rate 68 70 Respiratory Rate 22 Blood Pressure 133/66 133/66 Pulse Oximetry 98 98 Oxygen Delivery Method Room Air 01/17/25 04:00 01/17/25 04:00 01/17/25 04:18 Temperature Pulse Rate 65 65 Respiratory Rate 21 24 Blood Pressure 118/82 Pulse Oximetry 96 96 Oxygen Delivery Method Room Air Room Air 01/17/25 04:18 01/17/25 04:20 01/17/25 04:20 Temperature Pulse Rate 65 Respiratory Rate 20 Blood Pressure 122/62 119/55 L Pulse Oximetry 97 Oxygen Delivery Method 01/17/25 04:25 01/17/25 04:25 01/17/25 04:30 Temperature Pulse Rate 63 62 Respiratory Rate 20 17 Blood Pressure 97/50 L Pulse Oximetry 93 93 Oxygen Delivery Method Room Air 01/17/25 04:30 01/17/25 04:35 01/17/25 04:35 Temperature Pulse Rate 61 Respiratory Rate 19 Blood Pressure 96/50 L 96/50 L Pulse Oximetry 92 Oxygen Delivery Method 01/17/25 04:40 01/17/25 04:40 01/17/25 04:45 Temperature Pulse Rate 61 58 L Respiratory Rate 20 19 Blood Pressure 95/50 L Pulse Oximetry 93 92 Oxygen Delivery Method 01/17/25 04:45 01/17/25 04:50 01/17/25 04:50 Temperature Pulse Rate 58 L Respiratory Rate 18 Blood Pressure 90/51 L 95/51 L Pulse Oximetry 92 Oxygen Delivery Method 01/17/25 04:55 01/17/25 04:55 01/17/25 05:00 Temperature Pulse Rate 58 L 57 L Respiratory Rate 17 17 Blood Pressure 87/51 L Pulse Oximetry 93 92 Oxygen Delivery Method 01/17/25 05:00 01/17/25 05:05 01/17/25 05:05 Temperature Pulse Rate 56 L Respiratory Rate 17 Blood Pressure 92/55 L 87/52 L Pulse Oximetry 92 Oxygen Delivery Method 01/17/25 05:10 01/17/25 05:10 01/17/25 05:15 Temperature Pulse Rate 56 L 57 L Respiratory Rate 17 17 Blood Pressure 85/52 L Pulse Oximetry 93 93 Oxygen Delivery Method 01/17/25 05:15 01/17/25 05:20 01/17/25 05:20 Temperature Pulse Rate 57 L Respiratory Rate 16 Blood Pressure 87/51 L 89/53 L Pulse Oximetry 93 Oxygen Delivery Method 01/17/25 05:25 01/17/25 05:25 01/17/25 05:30 Temperature Pulse Rate 59 L Respiratory Rate 18 Blood Pressure 92/54 L 88/49 L Pulse Oximetry 93 Oxygen Delivery Method 01/17/25 05:30 01/17/25 05:35 01/17/25 05:35 Temperature Pulse Rate 58 L 56 L Respiratory Rate 17 17 Blood Pressure 92/54 L Pulse Oximetry 93 93 Oxygen Delivery Method Room Air 01/17/25 05:40 01/17/25 05:40 01/17/25 05:45 Temperature Pulse Rate 56 L 60 Respiratory Rate 17 21 Blood Pressure 106/53 L Pulse Oximetry 93 94 Oxygen Delivery Method Room Air Room Air 01/17/25 05:45 01/17/25 06:45 01/17/25 07:00 Temperature Pulse Rate 57 L 56 L Respiratory Rate 17 17 Blood Pressure 96/51 L Pulse Oximetry 94 93 Oxygen Delivery Method 01/17/25 07:00 01/17/25 07:00 01/17/25 07:15 Temperature Pulse Rate 56 L 60 Respiratory Rate 17 18 Blood Pressure 91/55 L Pulse Oximetry 93 94 Oxygen Delivery Method 01/17/25 07:30 01/17/25 07:30 01/17/25 07:45 Temperature Pulse Rate 58 L 64 Respiratory Rate 17 19 Blood Pressure 91/50 L Pulse Oximetry 93 94 Oxygen Delivery Method 01/17/25 08:00 01/17/25 08:00 01/17/25 08:30 Temperature Pulse Rate 69 64 Respiratory Rate 25 H 19 Blood Pressure 105/61 Pulse Oximetry 96 Oxygen Delivery Method 01/17/25 09:00 01/17/25 09:30 01/17/25 09:37 Temperature Pulse Rate 65 62 62 Respiratory Rate 19 18 18 Blood Pressure Pulse Oximetry 94 94 94 Oxygen Delivery Method 01/17/25 09:37 01/17/25 10:00 Temperature Pulse Rate 62 Respiratory Rate 18 Blood Pressure 99/54 L Pulse Oximetry 93 Oxygen Delivery Method <Yina L Laursen, MD - Last Filed: 01/17/25 10:47> Orders Ordered: ED Orders 01/17/25 03:39 EKG-12 Lead Stat 01/17/25 03:43 EKG-12 Lead Routine 01/17/25 03:50 Complete Blood Count AUTO DIFF Stat Comprehensive Metabolic Panel Stat Lipase Stat Troponin & CK Cardiac Panel Stat 01/17/25 04:03 XR chest 1V Stat 01/17/25 05:46 Trop I [Troponin I] Stat 01/17/25 07:58 CT chest w con Stat Nitroglycerin (Nitroglycerin 0.4 Mg Sl Tab) 0.4 mg SL [id number] PRN PRN Reason: chest pain Last Admin: 01/17/25 04:18 Dose: 0.4 mg Documented By: AUGIE Discontinued Medications Aspirin (Aspirin 81 Mg Chew Tab) 324 mg PO NOW ONE Stop: 01/17/25 04:04 Last Admin: 01/17/25 04:17 Dose: 324 mg Documented By: AUGIE Al Hydrox/Mg Hydrox/Simethicone 20 ml/ Lidocaine HCl 15 ml 0 ml PO NOW ONE Stop: 01/17/25 07:59 Last Admin: 01/17/25 08:35 Dose: 35 ml Documented By: FLOYD Dexamethasone (Dexamethasone 10 Mg/Ml Vial) 10 mg IV NOW ONE Stop: 01/17/25 08:09 Last Admin: 01/17/25 08:35 Dose: 10 mg Documented By: FLOYD Sodium Chloride (Normal Saline 0.9%) 1,000 mls @ 1,000 mls/hr IV BOLUS ONE Stop: 01/17/25 08:57 Last Infusion: 01/17/25 09:37 Dose: Infused Documented By: Admin: 01/17/25 08:35 Dose: 1,000 mls/hr Documented By: FLOYD Vital Signs Vital signs: Vital Signs - 8 hr 01/17/25 03:39 01/17/25 03:39 01/17/25 03:41 Temperature 98.0 F Pulse Rate 68 70 Respiratory Rate 22 Blood Pressure 133/66 133/66 Pulse Oximetry 98 98 Oxygen Delivery Method Room Air 01/17/25 04:00 01/17/25 04:00 01/17/25 04:18 Temperature Pulse Rate 65 65 Respiratory Rate 21 24 Blood Pressure 118/82 Pulse Oximetry 96 96 Oxygen Delivery Method Room Air Room Air 01/17/25 04:18 01/17/25 04:20 01/17/25 04:20 Temperature Pulse Rate 65 Respiratory Rate 20 Blood Pressure 122/62 119/55 L Pulse Oximetry 97 Oxygen Delivery Method 01/17/25 04:25 01/17/25 04:25 01/17/25 04:30 Temperature Pulse Rate 63 62 Respiratory Rate 20 17 Blood Pressure 97/50 L Pulse Oximetry 93 93 Oxygen Delivery Method Room Air 01/17/25 04:30 01/17/25 04:35 01/17/25 04:35 Temperature Pulse Rate 61 Respiratory Rate 19 Blood Pressure 96/50 L 96/50 L Pulse Oximetry 92 Oxygen Delivery Method 01/17/25 04:40 01/17/25 04:40 01/17/25 04:45 Temperature Pulse Rate 61 58 L Respiratory Rate 20 19 Blood Pressure 95/50 L Pulse Oximetry 93 92 Oxygen Delivery Method 01/17/25 04:45 01/17/25 04:50 01/17/25 04:50 Temperature Pulse Rate 58 L Respiratory Rate 18 Blood Pressure 90/51 L 95/51 L Pulse Oximetry 92 Oxygen Delivery Method 01/17/25 04:55 01/17/25 04:55 01/17/25 05:00 Temperature Pulse Rate 58 L 57 L Respiratory Rate 17 17 Blood Pressure 87/51 L Pulse Oximetry 93 92 Oxygen Delivery Method 01/17/25 05:00 01/17/25 05:05 01/17/25 05:05 Temperature Pulse Rate 56 L Respiratory Rate 17 Blood Pressure 92/55 L 87/52 L Pulse Oximetry 92 Oxygen Delivery Method 01/17/25 05:10 01/17/25 05:10 01/17/25 05:15 Temperature Pulse Rate 56 L 57 L Respiratory Rate 17 17 Blood Pressure 85/52 L Pulse Oximetry 93 93 Oxygen Delivery Method 01/17/25 05:15 01/17/25 05:20 01/17/25 05:20 Temperature Pulse Rate 57 L Respiratory Rate 16 Blood Pressure 87/51 L 89/53 L Pulse Oximetry 93 Oxygen Delivery Method 01/17/25 05:25 01/17/25 05:25 01/17/25 05:30 Temperature Pulse Rate 59 L Respiratory Rate 18 Blood Pressure 92/54 L 88/49 L Pulse Oximetry 93 Oxygen Delivery Method 01/17/25 05:30 01/17/25 05:35 01/17/25 05:35 Temperature Pulse Rate 58 L 56 L Respiratory Rate 17 17 Blood Pressure 92/54 L Pulse Oximetry 93 93 Oxygen Delivery Method Room Air 01/17/25 05:40 01/17/25 05:40 01/17/25 05:45 Temperature Pulse Rate 56 L 60 Respiratory Rate 17 21 Blood Pressure 106/53 L Pulse Oximetry 93 94 Oxygen Delivery Method Room Air Room Air 01/17/25 05:45 01/17/25 06:45 01/17/25 07:00 Temperature Pulse Rate 57 L 56 L Respiratory Rate 17 17 Blood Pressure 96/51 L Pulse Oximetry 94 93 Oxygen Delivery Method 01/17/25 07:00 01/17/25 07:00 01/17/25 07:15 Temperature Pulse Rate 56 L 60 Respiratory Rate 17 18 Blood Pressure 91/55 L Pulse Oximetry 93 94 Oxygen Delivery Method 01/17/25 07:30 01/17/25 07:30 01/17/25 07:45 Temperature Pulse Rate 58 L 64 Respiratory Rate 17 19 Blood Pressure 91/50 L Pulse Oximetry 93 94 Oxygen Delivery Method 01/17/25 08:00 01/17/25 08:00 01/17/25 08:30 Temperature Pulse Rate 69 64 Respiratory Rate 25 H 19 Blood Pressure 105/61 Pulse Oximetry 96 Oxygen Delivery Method 01/17/25 09:00 01/17/25 09:30 01/17/25 09:37 Temperature Pulse Rate 65 62 62 Respiratory Rate 19 18 18 Blood Pressure Pulse Oximetry 94 94 94 Oxygen Delivery Method 01/17/25 09:37 01/17/25 10:00 Temperature Pulse Rate 62 Respiratory Rate 18 Blood Pressure 99/54 L Pulse Oximetry 93 Oxygen Delivery Method MDM - Chest Pain <Rufino Gunderson, DO - Last Filed: 01/17/25 04:04> Lab Data 01/17/25 03:50 01/17/25 03:50 Labs: Lab Results 01/17/25 01/17/25 Range/Units 03:50 05:46 WBC 15.6 H (4.5-11.0) X10^3/uL RBC 4.17 L (4.5-5.9) X10^6/uL Hgb 13.3 L (13.5-17.5) g/dL Hct 39.2 L (41-53) % MCV 94.0 (80-100) fL MCH 31.8 (26-34) PG MCHC 33.8 (30-36) % RDW 13.6 (11.6-14.8) % Plt Count 180 (150-400) X10^3/uL Neut % (Auto) 82.6 H (50-75) % Lymph % (Auto) 7.3 L (25-40) % Gregory % (Auto) 7.2 (3-14) % Eos % (Auto) 0.6 L (2-4) % Baso % (Auto) 2.3 H (0-2) % Neut # (Auto) 79131 H (4493-6105) /uL Lymph # (Auto) 1100 (0594-6602) /uL Gregory # (Auto) 1100 H (0-900) /uL Eos # (Auto) 100 (0-450) /uL Baso # (Auto) 400 H (0-100) /uL Sodium 138 (137-145) mmol/L Potassium 4.3 (3.4-5.1) mmol/L Chloride 105 (98-107) mmol/L Carbon Dioxide 24 (22-32) mmol/L BUN 24 H (9-20) mg/dL Creatinine 0.95 (0.66-1.25) mg/dL Estimated GFR > 60 (>60) mL/min BUN/Creatinine Ratio 25.3 H (6-22) Glucose 109 H (70-99) mg/dL Calcium 8.9 (8.4-10.2) mg/dL Total Bilirubin 0.5 (0.2-1.3) mg/dL AST 33 (17-59) IU/L ALT 31 (<50) IU/L Alkaline Phosphatase 85 (38-126) U/L Total Creatine Kinase 71 (55-170) U/L Troponin I 0.655 H* 0.544 H* (0.01-0.034) ng/mL Total Protein 6.8 (6.3-8.2) g/dL Albumin 4.4 (3.5-5.0) g/dL Globulin 2.4 (1.7-4.1) g/dL Albumin/Globulin Ratio 1.8 (1.0-2.8) Lipase 51 (23-300) U/L ECG Data Interpretation: Bifasicular Block RBBB LAFB Occasional PVCS HR 65 OH 154 QRS [address]-t wave change Unchanged from 12/07/24 <Yina Robert MD - Last Filed: 01/17/25 10:47> Lab Data Labs: Lab Results 01/17/25 01/17/25 Range/Units 03:50 05:46 WBC 15.6 H (4.5-11.0) X10^3/uL RBC 4.17 L (4.5-5.9) X10^6/uL Hgb 13.3 L (13.5-17.5) g/dL Hct 39.2 L (41-53) % MCV 94.0 (80-100) fL MCH 31.8 (26-34) PG MCHC 33.8 (30-36) % RDW 13.6 (11.6-14.8) % Plt Count 180 (150-400) X10^3/uL Neut % (Auto) 82.6 H (50-75) % Lymph % (Auto) 7.3 L (25-40) % Gregory % (Auto) 7.2 (3-14) % Eos % (Auto) 0.6 L (2-4) % Baso % (Auto) 2.3 H (0-2) % Neut # (Auto) 21100 H (3293-4280) /uL Lymph # (Auto) 1100 (3763-3213) /uL Gregory # (Auto) 1100 H (0-900) /uL Eos # (Auto) 100 (0-450) /uL Baso # (Auto) 400 H (0-100) /uL Sodium 138 (137-145) mmol/L Potassium 4.3 (3.4-5.1) mmol/L Chloride 105 (98-107) mmol/L Carbon Dioxide 24 (22-32) mmol/L BUN 24 H (9-20) mg/dL Creatinine 0.95 (0.66-1.25) mg/dL Estimated GFR > 60 (>60) mL/min BUN/Creatinine Ratio 25.3 H (6-22) Glucose 109 H (70-99) mg/dL Calcium 8.9 (8.4-10.2) mg/dL Total Bilirubin 0.5 (0.2-1.3) mg/dL AST 33 (17-59) IU/L ALT 31 (<50) IU/L Alkaline Phosphatase 85 (38-126) U/L Total Creatine Kinase 71 (55-170) U/L Troponin I 0.655 H* 0.544 H* (0.01-0.034) ng/mL Total Protein 6.8 (6.3-8.2) g/dL Albumin 4.4 (3.5-5.0) g/dL Globulin 2.4 (1.7-4.1) g/dL Albumin/Globulin Ratio 1.8 (1.0-2.8) Lipase 51 (23-300) U/L Imaging Data CT scan - chest: Radiologist's Impression: PROCEDURE: CT CHEST W CON INDICATIONS: post ablation, 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 1 mm axial lung, 5 mm thick coronal and sagittal reformats and 7 mm axial MIP were acquired. For radiation dose reduction, the following was used: automated exposure control, adjustment of mA and/or kV according to patient size. COMPARISON: [facility], CT, CT ANGIO CHEST PE PROTOCOL, 12/06/2024, 21:48. FINDINGS: Image quality: Diagnostic. Lower Neck: No enlarged lymph nodes. Thyroid: No thyroid nodules which require sonographic follow up, per consensus guidelines. Axillae: No enlarged lymph nodes. Chest Wall: Unremarkable. Bones: Visualized osseous structures appear intact without acute fracture or focal destructive lesion. No acute compression fractures of the imaged spine. Lungs and Pleura: No pneumothorax or pleural effusions. Trace left and very small right bilateral pleural effusions with associated compressive atelectasis. No new suspicious or enlarging pulmonary nodules. Visualized airways appear patent. Heart: Heart size is stable. No pericardial effusion. Multivessel atherosclerotic calcifications of the coronary arteries. No evidence for abnormal enhancement surrounding the heart. No evidence to suggest extravasation of contrast. Thoracic Vessels: The aorta and pulmonary arteries demonstrate normal size. Mediastinum and Deisy: No enlarged lymph nodes. Esophagus: No esophageal wall thickening. No findings to suggest extravasation of contrast into the esophageal lumen. No esophageal inflammation. Specifically, esophagus appears unremarkable as it courses adjacent to the posterior margin of the heart. Upper Abdomen: Redemonstration of multiple hepatic hypodensities likely representing cysts or hemangiomas. Other visualized upper abdomen solid organs and bowel loops appear unremarkable. IMPRESSION: 1. No CT abnormalities identified in the heart to suggest abnormal enhancement, extravasation of contrast, or abnormalities of the adjacent segment of the esophagus. No evidence for extravasation of contrast into the esophageal lumen. 2. Trace left and very small right bilateral pleural effusions with moderate associated compressive atelectasis. No acute consolidation identified. 3. Multivessel atherosclerosis of the coronary arteries as before. 4. Other chronic findings as above Dictated by: Alejo Kaur M.D. on 01/17/2025 at 8:54 MDM Narrative Medical decision making narrative: CC: Chest pain Complicating co-morbidities: Cardiac ablation 72 hours ago, apparently complicated with concern for esophageal inflammation, told he will need a pacemaker Data collected from: patient Social determinants of health that may influence the patients condition: Medical records reviewed: Medical records from recent procedure not available, reviewed in detail with clay structure builder and servicer this morning Differential considered: Esophageal spasm secondary to inflammation postprocedure, acute coronary syndrome, pericardial effusion, atrial esophageal fistula as a complication of recent procedure Exam documented above, pertinent findings include: Exam is benign. He does have pleuritic pain with deep inspiration, no cough lungs are clear no cardiac rub appreciated Lab Test results independently reviewed as above. Pertinent findings: CBC shows a white count at 15.6, minor anemia 13.3 and 39.2. Neutrophils slightly elevated at 82.6 Chemistries show normal renal function no electrolyte abnormality Troponin initially is elevated at 0.655 and repeat is 0.54, in light of extensive cardiac ablation 72 hours ago it is difficult to interpret these numbers but they are likely secondary to the procedure rather than acute coronary syndrome Independently reviewed EKG: Sinus rhythm at a rate of 65 with frequent PVCs no ischemic changes Imaging studies independently reviewed: Chest x-ray shows no airspace consolidation, no pneumothorax pleural effusion or congestive changes no cardiomegaly CT of the chest shows No CT abnormalities identified in the heart to suggest abnormal enhancement, extravasation of contrast, or abnormalities of the adjacent segment of the esophagus. No evidence for extravasation of contrast into the esophageal lumen. Consultations: Discussed with Dr. Truong, clay structure builder and servicer at [facility]. He had already spoken with Dr. Prado this morning and his recommendation was a CT scan with contrast of the chest to look for atrial esophageal fistula. Giving the troponins trending down he was less concerned with the acute coronary syndrome and agreed with probable trending down troponins after recent ablation. Given the pleuritic nature agree that this is likely an inflammatory response. If the CT scan does not show a fistula, and patient is really typically pain-free with ambulatory test in the emergency department, recommendation was to treat the pleuritic pain and discharge home Treatments: Nitroglycerin, this did not influence his pain, did decrease his blood pressure. A L of normal saline is given Patient has taken all of his morning medications except for metoprolol GI cocktail Incentive spirometer with teaching Patient can not have nonsteroidals, we will give him a dose of Solu-Medrol for inflammatory pain and will also try small dose of narcotics if required Re-evaluations: GI cocktail did improve overall symptoms After a L of fluid his blood pressure has come up nicely and appears to be close to his baseline Discussion: 74-year-old gentleman post cardiac ablation 72 hours ago with chest pain. Workup shows elevated troponin however it is trending down and likely related to recent ablation rather than acute cardiac abnormality. In discussion with Cardiology as [place], CT scan was ordered to confirm absence of atrial esophageal fistula. Radiology reads the CT scan as essentially normal with no extra contrast extravasation nor significant inflammation in the area. The fact that the patient's symptoms were improved with a GI cocktail also argues for more esophageal irritation than cardiac etiology. He is doing well at this time, ambulates without chest pain. He started Protonix last night and we will continue this. We will suggest buying some [id number] Maalox to use to help with this esophageal irritation until it does begin to heal. He will be given a small course of Percocet to use for pain that is interrupting sleep. At this point there was no indication for further workup or hospitalization and he is safe for discharge. He does have follow up with his clay structure builder and servicer in approximately 4 days. Discharge Plan Departure Patient Disposition: Home Clinical Impression: Atypical chest pain Activity Restrictions/Additional Instructions: Thank you for coming in today I believe your chest pain is related to inflammation to your esophagus in the back portion of your heart from the cardiac ablation done 3 days ago. There is no evidence that there is any communication or small hole that is connecting the back of your heart to the esophagus or creating a hole in your esophagus itself. In the emergency department your troponin levels, enzymes looking at heart tissue, or slightly elevated but coming down. This is exactly what I would expect after a cardiac ablation and is not related to a heart attack In the emergency department we gave you Maalox plus some liquid lidocaine and that seemed to help your symptoms, this suggests that the esophageal inflammation is the source of your pain You can buy Maalox [id number] and use it to help soothe the inside of the esophagus as needed. Please do continue with the stomach acid medicine that you are prescribed and picked up last night. I have given you a small course of Percocet, this has Tylenol plus oxycodone, it is a narcotic it will cause constipation so take it with a stool softener. You can use this at night if the pain is significant enough that it is keeping you awake. This prescription was sent to [facility] in [place] Please make sure you keep your appointment with Dr. Prado next week Prescriptions: New oxycodone-acetaminophen 5-325 mg tablet 1 tab PO Q6H PRN (Reason: pain) Qty: 14 0RF No Action atorvastatin 40 mg tablet 40 mg PO BEDTIME Qty: 90 3RF spironolactone 25 mg tablet 12.5 mg PO DAILY dofetilide 250 mcg capsule 250 mcg PO BID metoprolol succinate [Toprol XL] 50 mg tablet extended release 24 hr 50 mg PO BID lisinopril 5 mg tablet 5 mg PO DAILY Qty: 90 3RF Eliquis 5 mg tablet 5 mg PO BID Referrals: Arina Harrell DO [Primary Care Provider, Family Practice] Stand Alone Forms: Patient Portal/API
--- NOTE | 2025-01-17 04:03 | DI.RAD.S_ITS ---
PROCEDURE: XR CHEST 1V INDICATIONS: chest pain TECHNIQUE: One view of the chest was acquired. COMPARISON: [facility], CR, XR CHEST 1V, 12/06/2024, 21:22. [facility], CR, XR CHEST 1V, 05/22/2024, 19:04. FINDINGS AND IMPRESSION: No dense airspace disease or pleural effusion on this single view study. Borderline cardiomegaly again seen. Unchanged mediastinal contours. Degenerative osseous changes. No significant changes from the preliminary report Dictated by: Dwayne Meek M.D. on 01/17/2025 at 9:16 Approved by: Dwayne Meek M.D. on 01/17/2025 at 9:18
[2025-01-17] MEDS: ASPIRIN 81 MG CHEW TAB 324 MG PO (04:17)
[2025-01-17] MEDS: NITROGLYCERIN 0.4 MG SL TAB SL (04:18)
[2025-01-17 04:27] LABS: Add Manual Diff / Slide Review NO; Basophils Absolute Auto 400 /uL (0-100); Basophils Percent Auto 2.3 % (0-2); Eosinophils Absolute Auto 100 /uL (0-450); Eosinophils Percent Auto 0.6 % (2-4); Hematocrit 39.2 % (41-53); Hemoglobin 13.3 g/dL (13.5-17.5); Lymphocytes Absolute Auto 1100 /uL (1100-4500); Lymphocytes Percent Auto 7.3 % (25-40); Mean Corpuscular HGB Conc 33.8 % (30-36); Mean Corpuscular Hemoglobin 31.8 PG (26-34); Monocytes Absolute Auto 1100 /uL (0-900); Monocytes Percent Auto 7.2 % (3-14); Neutrophils Absolute Auto 12900 /uL (1500-7000); Neutrophils Percent Auto 82.6 % (50-75); Platelet Count 180 X10^3/uL (150-400); Red Blood Cell Count 4.17 X10^6/uL (4.5-5.9); Red Cell Distribution Width 13.6 % (11.6-14.8); White Blood Cell Count 15.6 X10^3/uL (4.5-11.0)
[2025-01-17 04:34] LABS: Alanine Aminotransferase 31 IU/L (<50); Albumin 4.4 g/dL (3.5-5.0); Albumin Globulin Ratio 1.8 (1.0-2.8); Alkaline Phosphatase 85 U/L (38-126); Aspartate Aminotransferase 33 IU/L (17-59); BUN Creatinine Ratio 25.3 (6-22); Bilirubin Total 0.5 mg/dL (0.2-1.3); Blood Urea Nitrogen 24 mg/dL (9-20); Calcium 8.9 mg/dL (8.4-10.2); Carbon Dioxide 24 mmol/L (22-32); Chloride 105 mmol/L (98-107); Creatine Kinase 71 U/L (55-170); Estimated Glomerular Filt Rate > 60 mL/min (>60); Globulin 2.4 g/dL (1.7-4.1); Glucose 109 mg/dL (70-99); HEMOLYSIS < 15 (0-50); Lipase 51 U/L (23-300); Potassium 4.3 mmol/L (3.4-5.1); Sodium 138 mmol/L (137-145); Total Protein 6.8 g/dL (6.3-8.2)
[2025-01-17 04:49] LABS: Troponin I 0.655 ng/mL (0.01-0.034)
[2025-01-17 06:22] LABS: Troponin I 0.544 ng/mL (0.01-0.034)
--- NOTE | 2025-01-17 06:28 | EKG_ITS ---
[address] [address] Test Date: 2025-01-17 Pat Name: Omar Vargas Department: Room: Gender: Male Delivery Lead: AWA : 1950 Requested By: Order Number: [id number] Reading MD: Rufino Givens MD Measurements Intervals [place] Rate: 65 P: 70 FL: 148 QRS: -63 QRSD: 152 T: 73 QT: 486 QTc: 505 Interpretive Statements Sinus rhythm with frequent premature ventricular complexes Right bundle branch block Left anterior fascicular block Bifascicular blo NO SIGNIFICANT CHANGE FROM PRIOR TRACINGck Electronically Signed On 01-18-2025 9:10:42 PDT by Rufino Givens MD
--- NOTE | 2025-01-17 07:58 | DI.CT.S_ITS ---
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 1 mm axial lung, 5 mm thick coronal and sagittal reformats and 7 mm axial MIP were acquired. For radiation dose reduction, the following was used: automated exposure control, adjustment of mA and/or kV according to patient size. COMPARISON: [facility], CT, CT ANGIO CHEST PE PROTOCOL, 12/06/2024, 21:48. FINDINGS: Image quality: Diagnostic. Lower Neck: No enlarged lymph nodes. Thyroid: No thyroid nodules which require sonographic follow up, per consensus guidelines. Axillae: No enlarged lymph nodes. Chest Wall: Unremarkable. Bones: Visualized osseous structures appear intact without acute fracture or focal destructive lesion. No acute compression fractures of the imaged spine. Lungs and Pleura: No pneumothorax or pleural effusions. Trace left and very small right bilateral pleural effusions with associated compressive atelectasis. No new suspicious or enlarging pulmonary nodules. Visualized airways appear patent. Heart: Heart size is stable. No pericardial effusion. Multivessel atherosclerotic calcifications of the coronary arteries. No evidence for abnormal enhancement surrounding the heart. No evidence to suggest extravasation of contrast. Thoracic Vessels: The aorta and pulmonary arteries demonstrate normal size. Mediastinum and [place]: No enlarged lymph nodes. Esophagus: No esophageal wall thickening. No findings to suggest extravasation of contrast into the esophageal lumen. No esophageal inflammation. Specifically, esophagus appears unremarkable as it courses adjacent to the posterior margin of the heart. Upper Abdomen: Redemonstration of multiple hepatic hypodensities likely representing cysts or hemangiomas. Other visualized upper abdomen solid organs and bowel loops appear unremarkable. IMPRESSION: 1. No CT abnormalities identified in the heart to suggest abnormal enhancement, extravasation of contrast, or abnormalities of the adjacent segment of the esophagus. No evidence for extravasation of contrast into the esophageal lumen. 2. Trace left and very small right bilateral pleural effusions with moderate associated compressive atelectasis. No acute consolidation identified. 3. Multivessel atherosclerosis of the coronary arteries as before. 4. Other chronic findings as above Dictated by: Alejo Kaur M.D. on 01/17/2025 at 8:54 Approved by: Alejo Kaur M.D. on 01/17/2025 at 9:03
[2025-01-17] MEDS: DEXAMETHASONE 10 MG/ML VIAL IV (08:35)
[2025-01-17] MEDS: SODIUM CHLORIDE 0.9% 1,000 ML 1000 ML IV (08:35)
[2025-01-17] MEDS: MAG HYDROX/ALUMINUM/SIMETH SUS 20 ML, LIDOCAINE VISCOUS 2% 15 ML PO (08:35)
--- NOTE | 2025-01-17 08:53 | PC.NURSE ---
Assumed care of pt at 0700. Pt states that he began having 5/10 substernal and epigastric cp last night at approximately 1999 and was unable to sleep. Pt states that cp woke up. Reports unsuccessful ablation on 01/15. At this time, pt states that cp is 3/10 and feels like a tight burning. A&Ox4.
--- NOTE | 2025-01-17 09:38 | PC.NURSE ---
pt states that he is feeling pain relief with GI cocktail. Pain reduced to / a&ox4.
== END 2025-01-17 11:02 | disposition home or self-care (01) ==
PROVIDERS: Family Medicine; Emergency Provider Emergency Medicine; PCP Family Medicine
DX: R07.89 Other chest pain (principal); Z79.01 Long term (current) use of anticoagulants
CPT/HCPCS: 36415; 71045; 71260; 80053; 82550; 83690; 84484; 85025; 93005; 93010; 96361; 96374; 99284; J1100; Q9967

== ENCOUNTER 2025-04-21 19:31 | Emergency (ER) | payer MEDICARE, OTHER, SELFPAY ==
[2024-12-07 00:20] VITALS: BMI 25.0
[2025-04-21] VITALS (15 sets, daily range): BP systolic 94–147; BP diastolic 69–87; PULSE 68–125; RESP 13–55; TEMP 36.6; O2SAT 94–98; BMI 25.7
--- NOTE | 2025-04-21 19:39 | DI.RAD.S_ITS ---
PROCEDURE: XR CHEST 1V INDICATIONS: Chest Pain TECHNIQUE: One view of the chest was acquired. COMPARISON: [facility], CT, CT CHEST W CON, 01/17/2025, 8:08. [facility], CR, XR CHEST 1V, 01/17/2025, 3:59. [facility], CR, XR CHEST 1V, 12/06/2024, 21:22. FINDINGS: Surgical changes and devices: Left pacemaker/AICD. Lungs and pleura: Lungs are clear. No significant pleural effusions. No pneumothorax. Mediastinum: Mediastinal contours appear normal. Heart size appears prominent. Bones and chest wall: No suspicious bony lesions. Overlying soft tissues appear unremarkable. IMPRESSION: No acute cardiopulmonary abnormality is seen. Dictated by: Jamil Lyons M.D. on 04/21/2025 at 20:01 Approved by: Jamil Lyons M.D. on 04/21/2025 at 20:02
--- NOTE | 2025-04-21 19:39 | EKG_ITS ---
[place] [id number] [place] [id number] Test Date: 2025-04-21 Pat Name: Omar Vargas Department: Room: Gender: Male Jailer: : 1950 Requested By: Order Number: [id number] Reading MD: Manjit Deras Measurements Intervals [place] Rate: 129 P: [place]: QRS: -83 QRSD: 116 T: 50 QT: 344 QTc: 503 Interpretive Statements Atrial fibrillation with rapid ventricular response with frequent ventricular-paced complexes and with premature ventricular or aberrantly conducted complexes Left axis deviation Pulmonary disease pattern Right bundle branch block Electronically Signed On 04-22-2025 18:44:56 PDT by Manjit Deras
[2025-04-21 19:57] LABS: Add Manual Diff / Slide Review NO; Hematocrit 42.4 % (41-53); Hemoglobin 14.8 g/dL (13.5-17.5); Lymphocytes Absolute Auto 2300 /uL (1100-4500); Mean Corpuscular HGB Conc 34.9 % (30-36); Mean Corpuscular Hemoglobin 31.6 PG (26-34); Mean Corpuscular Volume 90.6 fL (80-100); Platelet Count 194 X10^3/uL (150-400)
[2025-04-21 20:03] LABS: INR 1.0 (0.9-1.3); Prothrombin Time 11.8 SECONDS (9.4-12.5)
[2025-04-21 20:06] LABS: PTT Partial Thromboplastin Tim 31 SECONDS (25.1-36.5)
[2025-04-21 20:12] LABS: Alanine Aminotransferase 24 IU/L (<50); Albumin 4.6 g/dL (3.5-5.0); Albumin Globulin Ratio 1.7 (1.0-2.8); Alkaline Phosphatase 113 U/L (38-126); Blood Urea Nitrogen 22 mg/dL (9-20); Calcium 9.2 mg/dL (8.4-10.2); Carbon Dioxide 24 mmol/L (22-32); Chloride 104 mmol/L (98-107); Creatine Kinase 65 U/L (55-170); Estimated Glomerular Filt Rate > 60 mL/min (>60); Globulin 2.7 g/dL (1.7-4.1); Glucose 117 mg/dL (70-99); HEMOLYSIS 26 (0-50); Lipase 62 U/L (23-300); Magnesium 1.9 mg/dL (1.6-2.3); Potassium 4.1 mmol/L (3.4-5.1); Sodium 138 mmol/L (137-145); Total Protein 7.3 g/dL (6.3-8.2)
--- NOTE | 2025-04-21 20:14 | ED.ARRPALP ---
HPI - Arrhythmia/Palpitations <Jasiel Guido MD - Last Filed: 04/24/25 04:48> General Chief Complaint: Arrhythmia/Palpitations Stated Complaint: A-Fib Time Seen by Provider: 04/21/25 20:14 Source: patient and EMS Mode of arrival: Ambulatory History of Present Illness HPI narrative: 74-year-old male patient with a history of atrial fibrillation, hypertension, dilated cardiomyopathy, SVT and dyslipidemia. Patient has an internal defibrillator that went off while doing dishes earlier this evening. He fell backwards and had a controlled fall with no head trauma. Defibrillator placed about a month old. Patient states he was in atrial fibrillation with a rate of 110 but the monitor was showing 70 has a heart rate. No symptoms prior to the defibrillation event. Related Data Home Medications ?Medication ?Instructions ?Recorded ?Confirmed apixaban 5 mg tablet (Eliquis) 5 mg PO BID 08/19/19 12/07/24 dofetilide 250 mcg capsule 250 mcg PO BID 09/10/23 12/07/24 spironolactone 25 mg tablet 12.5 mg PO DAILY 09/10/23 12/07/24 metoprolol succinate 50 mg 50 mg PO BID 09/19/24 12/07/24 tablet,extended release 24 hr (Toprol XL) Previous Rx's ?Medication ?Instructions ?Recorded atorvastatin 40 mg tablet 40 mg PO BEDTIME #90 tabs 09/18/24 lisinopril 5 mg tablet 5 mg PO DAILY #90 tabs 09/19/24 oxycodone-acetaminophen 5 mg-325 1 tab PO Q6H PRN pain #14 tabs 01/17/25 mg tablet Allergies Allergy/AdvReac Type Severity Reaction Status Date / Time No Known Drug Allergies Allergy Verified 04/21/25 19:39 Review of Systems <Jasiel Guido MD - Last Filed: 04/24/25 04:48> Review of Systems ROS Unobtainable: All systems reviewed & are unremarkable except as noted in HPI and below Cardiovascular Cardiovascular: Reports as per HPI Patient History <Jasiel Guido MD - Last Filed: 04/24/25 04:48> Medical History (Updated 04/22/25 @ 00:24 by Rufino Gunderson DO) Encounter for subsequent annual wellness visit in Medicare patient Benign essential HTN Dilated cardiomyopathy Chronic systolic CHF (congestive heart failure) Subclinical hypothyroidism Hyperlipidemia Chronic systolic heart failure Cardiomyopathy QT prolongation HTN (hypertension) Sinus bradycardia SVT (supraventricular tachycardia) Headache Shortness of breath Paroxysmal atrial fibrillation Surgical History Anesthesia History of radiofrequency ablation procedure for cardiac arrhythmia Left inguinal hernia (2015) Family History Father Diabetes mellitus Social History household members: significant other second hand exposure: No alcohol intake: never substance use type: does not use alcohol intake frequency: holidays/special occasions only Exam <Jasiel Guido MD - Last Filed: 04/24/25 04:48> Narrative Exam Narrative: General: Alert and conversant. No distress. Appears well nourished and well hydrated Craniofacial: No evidence of trauma. Nontender and no swelling. Neck: No tenderness or adenopathy. No meningismus. No JVD Lungs: Clear to auscultation with good air movement. No wheezing, rales or rhonchi. No respiratory distress Cardiac: Regular rate and irregular rhythm. With no appreciable murmur or gallop Abdomen: Soft, nontender with no distention or masses. Normal bowel sounds. No rebound or guarding Musculoskeletal: Exam of the extremities, axial spine and ribcage reveals no deformity, bony tenderness or swelling. Range of motion intact Neuro: Alert and oriented. Cranial nerves, motor, sensory and cerebellar all grossly intact. No focal deficit Skin: Warm and normal color. No rashes Psychological: Normal affect and interaction. No evidence of delusion or psychosis. Normal mood. Initial Vital Signs Initial Vital Signs: Vital Signs Pulse Rate 04/21/25 19:36 Pulse Oximetry 98 04/21/25 19:36 <Rufino Gunderson DO - Last Filed: 04/22/25 00:24> Initial Vital Signs Initial Vital Signs: Vital Signs Pulse Rate 04/21/25 19:36 Pulse Oximetry 98 04/21/25 19:36 <Sheila Putnam DO - Last Filed: 04/22/25 18:18> Initial Vital Signs Initial Vital Signs: Vital Signs Pulse Rate 04/21/25 19:36 Pulse Oximetry 98 04/21/25 19:36 Scores <Jasiel Guido MD - Last Filed: 04/24/25 04:48> HEART Score Heart Score Total: 6 <Rufino Gunderson DO - Last Filed: 04/22/25 00:24> HEART Score Heart Score history: Moderately Suspicious Heart Score EKG: Non-Specific repolarization disturbance Heart Score Age: > or = 65 years old Heart Score risk factors: > 3 risk factors or hx of atherosclerotic disease Heart Score troponin: < or = to normal limit Heart Score Total: 6 <Sheila Putnam DO - Last Filed: 04/22/25 18:18> HEART Score Heart Score Total: 6 Course <Jasiel Guido MD - Last Filed: 04/24/25 04:48> Course Course Narrative: 21:50 LIZETTE Villanueva has contacted the manufacture of the patient's defibrillator and they try to interrogate it over the phone but that has not work so they are going to come in and send a consult into evaluated on scene. They are coming from [place]. Patient remains asymptomatic 22:45 Patient has continued asymptomatic. After 5 mg IV metoprolol and his oral dose of metoprolol earlier this evening his rate is now 95 Orders Ordered: Discontinued Medications Aspirin (Aspirin 81 Mg Chew Tab) 324 mg PO NOW ONE Stop: 04/21/25 19:39 Last Admin: 04/21/25 20:21 Dose: Not Given Documented By: LOY Digoxin (Digoxin 500 Mcg/2 Ml Ampul) 250 mcg IV NOW ONE Stop: 04/22/25 00:23 Last Admin: 04/22/25 00:29 Dose: 250 mcg Documented By: SGGenesis Digoxin (Digoxin 0.125 Mg Tablet) 0.25 mg PO NOW ONE Stop: 04/22/25 09:59 Last Admin: 04/22/25 10:32 Dose: 0.25 mg Documented By: EB Digoxin (Digoxin 500 Mcg/2 Ml Ampul) 250 mcg IV NOW ONE Stop: 04/22/25 15:31 Last Admin: 04/22/25 15:39 Dose: 250 mcg Documented By: EB Heparin Sodium (Porcine) (Heparin 5,000 Unit/Ml Vial) 5,000 unit 60 unit/kg (5000 unit) IV NOW ONE Stop: 04/22/25 09:59 Last Admin: 04/22/25 11:00 Dose: 5,000 unit Documented By: KUMAR Heparin Sodium/Dextrose (Heparin Drip) 25,000 unit in 500 mls @ 20.684 mls/hr IV CONT FLORES; Protocol Last Titration: 04/22/25 19:16 Dose: Infused Documented By: KUMAR Co-signed By: GABBI Titration: 04/22/25 18:10 Dose: 9.6 units/kg/hr, 16.547 mls/hr Documented By: GABBI Co-signed By: MANE Titration: 04/22/25 17:40 Dose: 0 units/kg/hr, 0 mls/hr Documented By: KUMAR Co-signed By: GABBI Admin: 04/22/25 11:00 Dose: 11.6 units/kg/hr, 20 mls/hr Documented By: KUMAR Co-signed By: GABBI Sodium Chloride (Normal Saline 0.9%) 1,000 mls @ 1,000 mls/hr IV BOLUS ONE Stop: 04/22/25 15:30 Last Infusion: 04/22/25 15:59 Dose: Infused Documented By: Admin: 04/22/25 14:35 Dose: 1,000 mls/hr Documented By: GABBI Metoprolol Succinate (Metoprolol Er 50 Mg Tablet) 50 mg PO NOW ONE Stop: 04/22/25 13:10 Last Admin: 04/22/25 13:21 Dose: 50 mg Documented By: KUMAR Metoprolol Tartrate (Metoprolol Tartrate 5 Mg/5 Ml Inj) 5 mg IV NOW ONE Stop: 04/21/25 22:10 Last Admin: 04/21/25 22:21 Dose: 5 mg Documented By: LOY Metoprolol Tartrate (Metoprolol Tartrate 5 Mg/5 Ml Inj) 5 mg IV NOW ONE Stop: 04/22/25 14:18 Last Admin: 04/22/25 14:19 Dose: 5 mg Documented By: GABBI Metoprolol Tartrate (Metoprolol Tartrate 5 Mg/5 Ml Inj) 5 mg IV NOW ONE Stop: 04/22/25 14:30 Last Admin: 04/22/25 14:34 Dose: Not Given Documented By: GABBI Vital Signs Vital signs: Vital Signs - 8 hr 04/22/25 10:30 04/22/25 10:30 04/22/25 11:00 Pulse Rate 132 H 99 H Respiratory Rate 11 L 13 Blood Pressure 100/69 Pulse Oximetry 96 95 04/22/25 11:05 04/22/25 11:05 04/22/25 11:30 Pulse Rate 105 H Respiratory Rate 17 Blood Pressure 109/66 114/67 Pulse Oximetry 97 04/22/25 11:30 04/22/25 12:00 04/22/25 12:30 Pulse Rate 104 H 114 H 92 H Respiratory Rate 23 15 16 Blood Pressure Pulse Oximetry 96 97 97 04/22/25 12:30 04/22/25 13:00 04/22/25 13:00 Pulse Rate 102 H Respiratory Rate 15 Blood Pressure 116/74 101/68 Pulse Oximetry 95 04/22/25 13:31 04/22/25 14:00 04/22/25 14:01 Pulse Rate 123 H 123 H Respiratory Rate 18 18 Blood Pressure 106/70 Pulse Oximetry 95 95 04/22/25 14:01 04/22/25 14:04 04/22/25 14:10 Pulse Rate 122 H 150 H Respiratory Rate Blood Pressure 122/86 122/86 Pulse Oximetry 04/22/25 14:26 04/22/25 14:26 04/22/25 14:30 Pulse Rate 140 H 144 H Respiratory Rate 17 17 Blood Pressure 109/76 Pulse Oximetry 96 96 04/22/25 14:30 04/22/25 14:37 04/22/25 14:37 Pulse Rate 120 H Respiratory Rate 16 Blood Pressure 93/72 128/84 Pulse Oximetry 97 04/22/25 14:46 04/22/25 14:46 04/22/25 15:00 Pulse Rate 124 H 122 H Respiratory Rate 23 21 Blood Pressure 119/86 Pulse Oximetry 96 97 04/22/25 15:00 04/22/25 15:15 04/22/25 15:15 Pulse Rate 115 H Respiratory Rate 13 Blood Pressure 124/98 H 112/75 Pulse Oximetry 96 04/22/25 15:30 04/22/25 15:30 04/22/25 15:39 Pulse Rate 134 H 134 H Respiratory Rate 16 Blood Pressure 111/78 111/78 Pulse Oximetry 95 04/22/25 15:45 04/22/25 15:45 04/22/25 15:47 Pulse Rate 135 H 134 H Respiratory Rate 24 21 Blood Pressure 106/76 Pulse Oximetry 96 96 04/22/25 15:47 04/22/25 16:00 04/22/25 16:00 Pulse Rate 111 H Respiratory Rate 16 Blood Pressure 107/73 103/72 Pulse Oximetry 95 04/22/25 16:16 04/22/25 16:16 04/22/25 16:30 Pulse Rate 116 H 113 H Respiratory Rate 17 21 Blood Pressure 118/83 Pulse Oximetry 95 96 04/22/25 16:30 04/22/25 16:45 04/22/25 16:45 Pulse Rate 112 H Respiratory Rate 18 Blood Pressure 116/88 122/88 Pulse Oximetry 94 04/22/25 17:00 04/22/25 17:00 04/22/25 17:15 Pulse Rate 108 H 108 H Respiratory Rate 19 20 Blood Pressure 106/73 Pulse Oximetry 94 97 04/22/25 17:15 04/22/25 17:30 04/22/25 17:30 Pulse Rate 105 H Respiratory Rate 16 Blood Pressure 112/69 99/70 Pulse Oximetry 96 04/22/25 17:45 04/22/25 17:45 Pulse Rate 105 H Respiratory Rate 16 Blood Pressure 107/71 Pulse Oximetry 94 <Rufino Gunderson, DO - Last Filed: 04/22/25 00:24> Orders Ordered: Discontinued Medications Aspirin (Aspirin 81 Mg Chew Tab) 324 mg PO NOW ONE Stop: 04/21/25 19:39 Last Admin: 04/21/25 20:21 Dose: Not Given Documented By: LOY Digoxin (Digoxin 500 Mcg/2 Ml Ampul) 250 mcg IV NOW ONE Stop: 04/22/25 00:23 Last Admin: 04/22/25 00:29 Dose: 250 mcg Documented By: LOY Digoxin (Digoxin 0.125 Mg Tablet) 0.25 mg PO NOW ONE Stop: 04/22/25 09:59 Last Admin: 04/22/25 10:32 Dose: 0.25 mg Documented By: EB Digoxin (Digoxin 500 Mcg/2 Ml Ampul) 250 mcg IV NOW ONE Stop: 04/22/25 15:31 Last Admin: 04/22/25 15:39 Dose: 250 mcg Documented By: EB Heparin Sodium (Porcine) (Heparin 5,000 Unit/Ml Vial) 5,000 unit 60 unit/kg (5000 unit) IV NOW ONE Stop: 04/22/25 09:59 Last Admin: 04/22/25 11:00 Dose: 5,000 unit Documented By: KUMAR Heparin Sodium/Dextrose (Heparin Drip) 25,000 unit in 500 mls @ 20.684 mls/hr IV CONT FLORES; Protocol Last Titration: 04/22/25 19:16 Dose: Infused Documented By: KUMAR Co-signed By: GABBI Titration: 04/22/25 18:10 Dose: 9.6 units/kg/hr, 16.547 mls/hr Documented By: GABBI Co-signed By: MANE Titration: 04/22/25 17:40 Dose: 0 units/kg/hr, 0 mls/hr Documented By: KUMAR Co-signed By: GABBI Admin: 04/22/25 11:00 Dose: 11.6 units/kg/hr, 20 mls/hr Documented By: KUMAR Co-signed By: GABBI Sodium Chloride (Normal Saline 0.9%) 1,000 mls @ 1,000 mls/hr IV BOLUS ONE Stop: 04/22/25 15:30 Last Infusion: 04/22/25 15:59 Dose: Infused Documented By: Admin: 04/22/25 14:35 Dose: 1,000 mls/hr Documented By: GABBI Metoprolol Succinate (Metoprolol Er 50 Mg Tablet) 50 mg PO NOW ONE Stop: 04/22/25 13:10 Last Admin: 04/22/25 13:21 Dose: 50 mg Documented By: KUMAR Metoprolol Tartrate (Metoprolol Tartrate 5 Mg/5 Ml Inj) 5 mg IV NOW ONE Stop: 04/21/25 22:10 Last Admin: 04/21/25 22:21 Dose: 5 mg Documented By: LOY Metoprolol Tartrate (Metoprolol Tartrate 5 Mg/5 Ml Inj) 5 mg IV NOW ONE Stop: 04/22/25 14:18 Last Admin: 04/22/25 14:19 Dose: 5 mg Documented By: GABBI Metoprolol Tartrate (Metoprolol Tartrate 5 Mg/5 Ml Inj) 5 mg IV NOW ONE Stop: 04/22/25 14:30 Last Admin: 04/22/25 14:34 Dose: Not Given Documented By: GABBI Vital Signs Vital signs: Vital Signs - 8 hr 04/22/25 10:30 04/22/25 10:30 04/22/25 11:00 Pulse Rate 132 H 99 H Respiratory Rate 11 L 13 Blood Pressure 100/69 Pulse Oximetry 96 95 04/22/25 11:05 04/22/25 11:05 04/22/25 11:30 Pulse Rate 105 H Respiratory Rate 17 Blood Pressure 109/66 114/67 Pulse Oximetry 97 04/22/25 11:30 04/22/25 12:00 04/22/25 12:30 Pulse Rate 104 H 114 H 92 H Respiratory Rate 23 15 16 Blood Pressure Pulse Oximetry 96 97 97 04/22/25 12:30 04/22/25 13:00 04/22/25 13:00 Pulse Rate 102 H Respiratory Rate 15 Blood Pressure 116/74 101/68 Pulse Oximetry 95 04/22/25 13:31 04/22/25 14:00 04/22/25 14:01 Pulse Rate 123 H 123 H Respiratory Rate 18 18 Blood Pressure 106/70 Pulse Oximetry 95 95 04/22/25 14:01 04/22/25 14:04 04/22/25 14:10 Pulse Rate 122 H 150 H Respiratory Rate Blood Pressure 122/86 122/86 Pulse Oximetry 04/22/25 14:26 04/22/25 14:26 04/22/25 14:30 Pulse Rate 140 H 144 H Respiratory Rate 17 17 Blood Pressure 109/76 Pulse Oximetry 96 96 04/22/25 14:30 04/22/25 14:37 04/22/25 14:37 Pulse Rate 120 H Respiratory Rate 16 Blood Pressure 93/72 128/84 Pulse Oximetry 97 04/22/25 14:46 04/22/25 14:46 04/22/25 15:00 Pulse Rate 124 H 122 H Respiratory Rate 23 21 Blood Pressure 119/86 Pulse Oximetry 96 97 04/22/25 15:00 04/22/25 15:15 04/22/25 15:15 Pulse Rate 115 H Respiratory Rate 13 Blood Pressure 124/98 H 112/75 Pulse Oximetry 96 04/22/25 15:30 04/22/25 15:30 04/22/25 15:39 Pulse Rate 134 H 134 H Respiratory Rate 16 Blood Pressure 111/78 111/78 Pulse Oximetry 95 04/22/25 15:45 04/22/25 15:45 04/22/25 15:47 Pulse Rate 135 H 134 H Respiratory Rate 24 21 Blood Pressure 106/76 Pulse Oximetry 96 96 04/22/25 15:47 04/22/25 16:00 04/22/25 16:00 Pulse Rate 111 H Respiratory Rate 16 Blood Pressure 107/73 103/72 Pulse Oximetry 95 04/22/25 16:16 04/22/25 16:16 04/22/25 16:30 Pulse Rate 116 H 113 H Respiratory Rate 17 21 Blood Pressure 118/83 Pulse Oximetry 95 96 04/22/25 16:30 04/22/25 16:45 04/22/25 16:45 Pulse Rate 112 H Respiratory Rate 18 Blood Pressure 116/88 122/88 Pulse Oximetry 94 04/22/25 17:00 04/22/25 17:00 04/22/25 17:15 Pulse Rate 108 H 108 H Respiratory Rate 19 20 Blood Pressure 106/73 Pulse Oximetry 94 97 04/22/25 17:15 04/22/25 17:30 04/22/25 17:30 Pulse Rate 105 H Respiratory Rate 16 Blood Pressure 112/69 99/70 Pulse Oximetry 96 04/22/25 17:45 04/22/25 17:45 Pulse Rate 105 H Respiratory Rate 16 Blood Pressure 107/71 Pulse Oximetry 94 <Sheila Putnam DO - Last Filed: 04/22/25 18:18> Orders Ordered: Discontinued Medications Aspirin (Aspirin 81 Mg Chew Tab) 324 mg PO NOW ONE Stop: 04/21/25 19:39 Last Admin: 04/21/25 20:21 Dose: Not Given Documented By: LOY Digoxin (Digoxin 500 Mcg/2 Ml Ampul) 250 mcg IV NOW ONE Stop: 04/22/25 00:23 Last Admin: 04/22/25 00:29 Dose: 250 mcg Documented By: SGGenesis Digoxin (Digoxin 0.125 Mg Tablet) 0.25 mg PO NOW ONE Stop: 04/22/25 09:59 Last Admin: 04/22/25 10:32 Dose: 0.25 mg Documented By: EB Digoxin (Digoxin 500 Mcg/2 Ml Ampul) 250 mcg IV NOW ONE Stop: 04/22/25 15:31 Last Admin: 04/22/25 15:39 Dose: 250 mcg Documented By: EB Heparin Sodium (Porcine) (Heparin 5,000 Unit/Ml Vial) 5,000 unit 60 unit/kg (5000 unit) IV NOW ONE Stop: 04/22/25 09:59 Last Admin: 04/22/25 11:00 Dose: 5,000 unit Documented By: KUMAR Heparin Sodium/Dextrose (Heparin Drip) 25,000 unit in 500 mls @ 20.684 mls/hr IV CONT FLORES; Protocol Last Titration: 04/22/25 19:16 Dose: Infused Documented By: KUMAR Co-signed By: GABBI Titration: 04/22/25 18:10 Dose: 9.6 units/kg/hr, 16.547 mls/hr Documented By: GABBI Co-signed By: MANE Titration: 04/22/25 17:40 Dose: 0 units/kg/hr, 0 mls/hr Documented By: KUMAR Co-signed By: GABBI Admin: 04/22/25 11:00 Dose: 11.6 units/kg/hr, 20 mls/hr Documented By: KUMAR Co-signed By: GABBI Sodium Chloride (Normal Saline 0.9%) 1,000 mls @ 1,000 mls/hr IV BOLUS ONE Stop: 04/22/25 15:30 Last Infusion: 04/22/25 15:59 Dose: Infused Documented By: Admin: 04/22/25 14:35 Dose: 1,000 mls/hr Documented By: GABBI Metoprolol Succinate (Metoprolol Er 50 Mg Tablet) 50 mg PO NOW ONE Stop: 04/22/25 13:10 Last Admin: 04/22/25 13:21 Dose: 50 mg Documented By: KUMAR Metoprolol Tartrate (Metoprolol Tartrate 5 Mg/5 Ml Inj) 5 mg IV NOW ONE Stop: 04/21/25 22:10 Last Admin: 04/21/25 22:21 Dose: 5 mg Documented By: LOY Metoprolol Tartrate (Metoprolol Tartrate 5 Mg/5 Ml Inj) 5 mg IV NOW ONE Stop: 04/22/25 14:18 Last Admin: 04/22/25 14:19 Dose: 5 mg Documented By: GABBI Metoprolol Tartrate (Metoprolol Tartrate 5 Mg/5 Ml Inj) 5 mg IV NOW ONE Stop: 04/22/25 14:30 Last Admin: 04/22/25 14:34 Dose: Not Given Documented By: GABBI Vital Signs Vital signs: Vital Signs - 8 hr 04/22/25 10:30 04/22/25 10:30 04/22/25 11:00 Pulse Rate 132 H 99 H Respiratory Rate 11 L 13 Blood Pressure 100/69 Pulse Oximetry 96 95 04/22/25 11:05 04/22/25 11:05 04/22/25 11:30 Pulse Rate 105 H Respiratory Rate 17 Blood Pressure 109/66 114/67 Pulse Oximetry 97 04/22/25 11:30 04/22/25 12:00 04/22/25 12:30 Pulse Rate 104 H 114 H 92 H Respiratory Rate 23 15 16 Blood Pressure Pulse Oximetry 96 97 97 04/22/25 12:30 04/22/25 13:00 04/22/25 13:00 Pulse Rate 102 H Respiratory Rate 15 Blood Pressure 116/74 101/68 Pulse Oximetry 95 04/22/25 13:31 04/22/25 14:00 04/22/25 14:01 Pulse Rate 123 H 123 H Respiratory Rate 18 18 Blood Pressure 106/70 Pulse Oximetry 95 95 04/22/25 14:01 04/22/25 14:04 04/22/25 14:10 Pulse Rate 122 H 150 H Respiratory Rate Blood Pressure 122/86 122/86 Pulse Oximetry 04/22/25 14:26 04/22/25 14:26 04/22/25 14:30 Pulse Rate 140 H 144 H Respiratory Rate 17 17 Blood Pressure 109/76 Pulse Oximetry 96 96 04/22/25 14:30 04/22/25 14:37 04/22/25 14:37 Pulse Rate 120 H Respiratory Rate 16 Blood Pressure 93/72 128/84 Pulse Oximetry 97 04/22/25 14:46 04/22/25 14:46 04/22/25 15:00 Pulse Rate 124 H 122 H Respiratory Rate 23 21 Blood Pressure 119/86 Pulse Oximetry 96 97 04/22/25 15:00 04/22/25 15:15 04/22/25 15:15 Pulse Rate 115 H Respiratory Rate 13 Blood Pressure 124/98 H 112/75 Pulse Oximetry 96 04/22/25 15:30 04/22/25 15:30 04/22/25 15:39 Pulse Rate 134 H 134 H Respiratory Rate 16 Blood Pressure 111/78 111/78 Pulse Oximetry 95 04/22/25 15:45 04/22/25 15:45 04/22/25 15:47 Pulse Rate 135 H 134 H Respiratory Rate 24 21 Blood Pressure 106/76 Pulse Oximetry 96 96 04/22/25 15:47 04/22/25 16:00 04/22/25 16:00 Pulse Rate 111 H Respiratory Rate 16 Blood Pressure 107/73 103/72 Pulse Oximetry 95 04/22/25 16:16 04/22/25 16:16 04/22/25 16:30 Pulse Rate 116 H 113 H Respiratory Rate 17 21 Blood Pressure 118/83 Pulse Oximetry 95 96 04/22/25 16:30 04/22/25 16:45 04/22/25 16:45 Pulse Rate 112 H Respiratory Rate 18 Blood Pressure 116/88 122/88 Pulse Oximetry 94 04/22/25 17:00 04/22/25 17:00 04/22/25 17:15 Pulse Rate 108 H 108 H Respiratory Rate 19 20 Blood Pressure 106/73 Pulse Oximetry 94 97 04/22/25 17:15 04/22/25 17:30 04/22/25 17:30 Pulse Rate 105 H Respiratory Rate 16 Blood Pressure 112/69 99/70 Pulse Oximetry 96 04/22/25 17:45 04/22/25 17:45 Pulse Rate 105 H Respiratory Rate 16 Blood Pressure 107/71 Pulse Oximetry 94 MDM - Arrhythmia/Palpitations <Jasiel Guido MD - Last Filed: 04/24/25 04:48> Medical Records Attestation: I reviewed the patient's medical records. Medical records narrative: History of atrial fibrillation, SVT, hypertension and previous ventricular arrhythmias resulting in a placement of a defibrillator 2 months ago at [facility] in [place] Lab Data Attestation: I reviewed the patient's lab results. Lab results narrative: Essentially unremarkable lab results including CBC, CMP and troponin. BNP is slightly elevated at 425. 04/22/25 10:15 04/21/25 19:47 Labs: Lab Results 04/21/25 04/21/25 04/22/25 Range/Units 19:47 22:50 10:15 WBC 8.8 8.2 (4.5-11.0) X10^3/uL RBC 4.68 4.62 (4.5-5.9) X10^6/uL Hgb 14.8 14.6 (13.5-17.5) g/dL Hct 42.4 42.2 (41-53) % MCV 90.6 91.3 (80-100) fL MCH 31.6 31.5 (26-34) PG MCHC 34.9 34.5 (30-36) % RDW 13.3 13.8 (11.6-14.8) % Plt Count 194 109 L (150-400) X10^3/uL Neut % (Auto) 55.9 65.4 (50-75) % Lymph % (Auto) 26.1 20.2 L (25-40) % Ford % (Auto) 13.4 11.4 (3-14) % Eos % (Auto) 3.3 1.6 L (2-4) % Baso % (Auto) 1.3 1.4 (0-2) % Neut # (Auto) 4900 5300 (8151-4392) /uL Lymph # (Auto) 2300 1700 (7602-4553) /uL Ford # (Auto) 1200 H 900 (0-900) /uL Eos # (Auto) 300 100 (0-450) /uL Baso # (Auto) 100 100 (0-100) /uL PT 11.8 12.6 H (9.4-12.5) SECONDS INR 1.0 1.1 (0.9-1.3) APTT 31 26 D (25.1-36.5) SECONDS Sodium 138 (137-145) mmol/L Potassium 4.1 (3.4-5.1) mmol/L Chloride 104 (98-107) mmol/L Carbon Dioxide 24 (22-32) mmol/L BUN 22 H (9-20) mg/dL Creatinine 0.99 (0.66-1.25) mg/dL Estimated GFR > 60 (>60) mL/min BUN/Creatinine Ratio 22.2 H (6-22) Glucose 117 H (70-99) mg/dL Calcium 9.2 (8.4-10.2) mg/dL Magnesium 1.9 (1.6-2.3) mg/dL Total Bilirubin 0.4 (0.2-1.3) mg/dL AST 25 (17-59) IU/L ALT 24 (<50) IU/L Alkaline Phosphatase 113 (38-126) U/L Total Creatine Kinase 65 (55-170) U/L Troponin I < 0.012 0.018 (0.01-0.034) ng/mL NT-Pro-B Natriuret Pep 425 H (<125) pg/mL Total Protein 7.3 (6.3-8.2) g/dL Albumin 4.6 (3.5-5.0) g/dL Globulin 2.7 (1.7-4.1) g/dL Albumin/Globulin Ratio 1.7 (1.0-2.8) Lipase 62 (23-300) U/L 04/22/25 Range/Units 17:10 WBC (4.5-11.0) X10^3/uL RBC (4.5-5.9) X10^6/uL Hgb (13.5-17.5) g/dL Hct (41-53) % MCV (80-100) fL MCH (26-34) PG MCHC (30-36) % RDW (11.6-14.8) % Plt Count (150-400) X10^3/uL Neut % (Auto) (50-75) % Lymph % (Auto) (25-40) % Ford % (Auto) (3-14) % Eos % (Auto) (2-4) % Baso % (Auto) (0-2) % Neut # (Auto) (0010-5952) /uL Lymph # (Auto) (6497-1502) /uL Ford # (Auto) (0-900) /uL Eos # (Auto) (0-450) /uL Baso # (Auto) (0-100) /uL PT (9.4-12.5) SECONDS INR (0.9-1.3) APTT 83 H* D (25.1-36.5) SECONDS Sodium (137-145) mmol/L Potassium (3.4-5.1) mmol/L Chloride (98-107) mmol/L Carbon Dioxide (22-32) mmol/L BUN (9-20) mg/dL Creatinine (0.66-1.25) mg/dL Estimated GFR (>60) mL/min BUN/Creatinine Ratio (6-22) Glucose (70-99) mg/dL Calcium (8.4-10.2) mg/dL Magnesium (1.6-2.3) mg/dL Total Bilirubin (0.2-1.3) mg/dL AST (17-59) IU/L ALT (<50) IU/L Alkaline Phosphatase (38-126) U/L Total Creatine Kinase (55-170) U/L Troponin I (0.01-0.034) ng/mL NT-Pro-B Natriuret Pep (<125) pg/mL Total Protein (6.3-8.2) g/dL Albumin (3.5-5.0) g/dL Globulin (1.7-4.1) g/dL Albumin/Globulin Ratio (1.0-2.8) Lipase (23-300) U/L Imaging Data Chest x-ray: Attestation: I personally reviewed and interpreted this imaging study as follows: (No acute disease) My Impression: Unremarkable. No acute disease ECG Data Attestation: I personally reviewed and interpreted this ECG as follows: (Atrial fibrillation with RVR. Frequent PVCs. LAD. RBBB. Rate 129) MDM Narrative Medical decision making narrative: Patient has had a discharging of his defibrillator for unknown cause since he had no symptoms prior to that and then none afterwards. He has been and mildly rapid atrial fibrillation but that is improving with metoprolol. We are awaiting a consultation on scene from the automobile rental representative of his defibrillator company. 23:00 Patient care signed out to Dr. Gunderson with defibrillator consultation pending. <Rufino Gunderson, DO - Last Filed: 04/22/25 00:24> Lab Data Labs: Lab Results 04/21/25 04/21/25 04/22/25 Range/Units 19:47 22:50 10:15 WBC 8.8 8.2 (4.5-11.0) X10^3/uL RBC 4.68 4.62 (4.5-5.9) X10^6/uL Hgb 14.8 14.6 (13.5-17.5) g/dL Hct 42.4 42.2 (41-53) % MCV 90.6 91.3 (80-100) fL MCH 31.6 31.5 (26-34) PG MCHC 34.9 34.5 (30-36) % RDW 13.3 13.8 (11.6-14.8) % Plt Count 194 109 L (150-400) X10^3/uL Neut % (Auto) 55.9 65.4 (50-75) % Lymph % (Auto) 26.1 20.2 L (25-40) % Ford % (Auto) 13.4 11.4 (3-14) % Eos % (Auto) 3.3 1.6 L (2-4) % Baso % (Auto) 1.3 1.4 (0-2) % Neut # (Auto) 4900 5300 (5511-7761) /uL Lymph # (Auto) 2300 1700 (1355-1526) /uL Ford # (Auto) 1200 H 900 (0-900) /uL Eos # (Auto) 300 100 (0-450) /uL Baso # (Auto) 100 100 (0-100) /uL PT 11.8 12.6 H (9.4-12.5) SECONDS INR 1.0 1.1 (0.9-1.3) APTT 31 26 D (25.1-36.5) SECONDS Sodium 138 (137-145) mmol/L Potassium 4.1 (3.4-5.1) mmol/L Chloride 104 (98-107) mmol/L Carbon Dioxide 24 (22-32) mmol/L BUN 22 H (9-20) mg/dL Creatinine 0.99 (0.66-1.25) mg/dL Estimated GFR > 60 (>60) mL/min BUN/Creatinine Ratio 22.2 H (6-22) Glucose 117 H (70-99) mg/dL Calcium 9.2 (8.4-10.2) mg/dL Magnesium 1.9 (1.6-2.3) mg/dL Total Bilirubin 0.4 (0.2-1.3) mg/dL AST 25 (17-59) IU/L ALT 24 (<50) IU/L Alkaline Phosphatase 113 (38-126) U/L Total Creatine Kinase 65 (55-170) U/L Troponin I < 0.012 0.018 (0.01-0.034) ng/mL NT-Pro-B Natriuret Pep 425 H (<125) pg/mL Total Protein 7.3 (6.3-8.2) g/dL Albumin 4.6 (3.5-5.0) g/dL Globulin 2.7 (1.7-4.1) g/dL Albumin/Globulin Ratio 1.7 (1.0-2.8) Lipase 62 (23-300) U/L 04/22/25 Range/Units 17:10 WBC (4.5-11.0) X10^3/uL RBC (4.5-5.9) X10^6/uL Hgb (13.5-17.5) g/dL Hct (41-53) % MCV (80-100) fL MCH (26-34) PG MCHC (30-36) % RDW (11.6-14.8) % Plt Count (150-400) X10^3/uL Neut % (Auto) (50-75) % Lymph % (Auto) (25-40) % Ford % (Auto) (3-14) % Eos % (Auto) (2-4) % Baso % (Auto) (0-2) % Neut # (Auto) (0707-8873) /uL Lymph # (Auto) (6508-5701) /uL Ford # (Auto) (0-900) /uL Eos # (Auto) (0-450) /uL Baso # (Auto) (0-100) /uL PT (9.4-12.5) SECONDS INR (0.9-1.3) APTT 83 H* D (25.1-36.5) SECONDS Sodium (137-145) mmol/L Potassium (3.4-5.1) mmol/L Chloride (98-107) mmol/L Carbon Dioxide (22-32) mmol/L BUN (9-20) mg/dL Creatinine (0.66-1.25) mg/dL Estimated GFR (>60) mL/min BUN/Creatinine Ratio (6-22) Glucose (70-99) mg/dL Calcium (8.4-10.2) mg/dL Magnesium (1.6-2.3) mg/dL Total Bilirubin (0.2-1.3) mg/dL AST (17-59) IU/L ALT (<50) IU/L Alkaline Phosphatase (38-126) U/L Total Creatine Kinase (55-170) U/L Troponin I (0.01-0.034) ng/mL NT-Pro-B Natriuret Pep (<125) pg/mL Total Protein (6.3-8.2) g/dL Albumin (3.5-5.0) g/dL Globulin (1.7-4.1) g/dL Albumin/Globulin Ratio (1.0-2.8) Lipase (23-300) U/L Imaging Data Chest x-ray: Radiologist's Impresson: [address] [address] XRay Report Signed Patient: Omar Vargas MR#: [id number] : 1950 Acct:[id number] Age/Sex: 74 / M Date of Service: 04/21/25 Loc: ED Accession Number: [id number] Procedure: XR chest 1V Ordering Provider: Jasiel Guido MD PROCEDURE: XR CHEST 1V INDICATIONS: Chest Pain TECHNIQUE: One view of the chest was acquired. COMPARISON: [facility], CT, CT CHEST W CON, 01/17/2025, 8:08. [facility], CR, XR CHEST 1V, 01/17/2025, 3:59. [facility], CR, XR CHEST 1V, 12/06/2024, 21:22. FINDINGS: Surgical changes and devices: Left pacemaker/AICD. Lungs and pleura: Lungs are clear. No significant pleural effusions. No pneumothorax. Mediastinum: Mediastinal contours appear normal. Heart size appears prominent. Bones and chest wall: No suspicious bony lesions. Overlying soft tissues appear unremarkable. IMPRESSION: ECG Data Interpretation: Afib RVR LAD RBBB HR 129 WI undetermined QRS 116 QT 344 MDM Narrative Medical decision making narrative: Patient has had a discharging of his defibrillator for unknown cause since he had no symptoms prior to that and then none afterwards. He has been and mildly rapid atrial fibrillation but that is improving with metoprolol. We are awaiting a consultation on scene from the automobile rental representative of his defibrillator company. 23:00 Patient care signed out to Dr. Gunderson with defibrillator consultation pending. All lab work, vital signs, nurse triage note, medication list, previous ER visits, and all imaging studies reviewed. Chest x-ray showed no acute process. Two sets troponins are normal. Heart score 6. Patient was seen initially by Dr. Jasiel Weiss who initially gave patient 5 of metoprolol IV now rate controlled and continued on his home regimen. I was called by [employer] who interrogated his defibrillator confirming that he did get shocked at 6:58 a.m. today showing atrial flutter 1-1 with a heart rate of 205. Case discussed with Dr. Nicole pipe fitter marine in [place] went over his records with failed ablation on multiple attempts with recent placement of defibrillator pacemaker and now in AFib given metoprolol heart rate in the 90s systolic blood pressure in the 90s and will ultimately need AV john ablation in his recommending that the patient be transferred over to [facility] to be admitted and now waiting on tele bed he recommends at this time digoxin IV. <Sheila Putnam, DO - Last Filed: 04/22/25 18:18> Lab Data Labs: Lab Results 04/21/25 04/21/25 04/22/25 Range/Units 19:47 22:50 10:15 WBC 8.8 8.2 (4.5-11.0) X10^3/uL RBC 4.68 4.62 (4.5-5.9) X10^6/uL Hgb 14.8 14.6 (13.5-17.5) g/dL Hct 42.4 42.2 (41-53) % MCV 90.6 91.3 (80-100) fL MCH 31.6 31.5 (26-34) PG MCHC 34.9 34.5 (30-36) % RDW 13.3 13.8 (11.6-14.8) % Plt Count 194 109 L (150-400) X10^3/uL Neut % (Auto) 55.9 65.4 (50-75) % Lymph % (Auto) 26.1 20.2 L (25-40) % Ford % (Auto) 13.4 11.4 (3-14) % Eos % (Auto) 3.3 1.6 L (2-4) % Baso % (Auto) 1.3 1.4 (0-2) % Neut # (Auto) 4900 5300 (5034-3971) /uL Lymph # (Auto) 2300 1700 (3443-2352) /uL Ford # (Auto) 1200 H 900 (0-900) /uL Eos # (Auto) 300 100 (0-450) /uL Baso # (Auto) 100 100 (0-100) /uL PT 11.8 12.6 H (9.4-12.5) SECONDS INR 1.0 1.1 (0.9-1.3) APTT 31 26 D (25.1-36.5) SECONDS Sodium 138 (137-145) mmol/L Potassium 4.1 (3.4-5.1) mmol/L Chloride 104 (98-107) mmol/L Carbon Dioxide 24 (22-32) mmol/L BUN 22 H (9-20) mg/dL Creatinine 0.99 (0.66-1.25) mg/dL Estimated GFR > 60 (>60) mL/min BUN/Creatinine Ratio 22.2 H (6-22) Glucose 117 H (70-99) mg/dL Calcium 9.2 (8.4-10.2) mg/dL Magnesium 1.9 (1.6-2.3) mg/dL Total Bilirubin 0.4 (0.2-1.3) mg/dL AST 25 (17-59) IU/L ALT 24 (<50) IU/L Alkaline Phosphatase 113 (38-126) U/L Total Creatine Kinase 65 (55-170) U/L Troponin I < 0.012 0.018 (0.01-0.034) ng/mL NT-Pro-B Natriuret Pep 425 H (<125) pg/mL Total Protein 7.3 (6.3-8.2) g/dL Albumin 4.6 (3.5-5.0) g/dL Globulin 2.7 (1.7-4.1) g/dL Albumin/Globulin Ratio 1.7 (1.0-2.8) Lipase 62 (23-300) U/L 04/22/25 Range/Units 17:10 WBC (4.5-11.0) X10^3/uL RBC (4.5-5.9) X10^6/uL Hgb (13.5-17.5) g/dL Hct (41-53) % MCV (80-100) fL MCH (26-34) PG MCHC (30-36) % RDW (11.6-14.8) % Plt Count (150-400) X10^3/uL Neut % (Auto) (50-75) % Lymph % (Auto) (25-40) % Ford % (Auto) (3-14) % Eos % (Auto) (2-4) % Baso % (Auto) (0-2) % Neut # (Auto) (4640-7650) /uL Lymph # (Auto) (0944-0757) /uL Ford # (Auto) (0-900) /uL Eos # (Auto) (0-450) /uL Baso # (Auto) (0-100) /uL PT (9.4-12.5) SECONDS INR (0.9-1.3) APTT 83 H* D (25.1-36.5) SECONDS Sodium (137-145) mmol/L Potassium (3.4-5.1) mmol/L Chloride (98-107) mmol/L Carbon Dioxide (22-32) mmol/L BUN (9-20) mg/dL Creatinine (0.66-1.25) mg/dL Estimated GFR (>60) mL/min BUN/Creatinine Ratio (6-22) Glucose (70-99) mg/dL Calcium (8.4-10.2) mg/dL Magnesium (1.6-2.3) mg/dL Total Bilirubin (0.2-1.3) mg/dL AST (17-59) IU/L ALT (<50) IU/L Alkaline Phosphatase (38-126) U/L Total Creatine Kinase (55-170) U/L Troponin I (0.01-0.034) ng/mL NT-Pro-B Natriuret Pep (<125) pg/mL Total Protein (6.3-8.2) g/dL Albumin (3.5-5.0) g/dL Globulin (1.7-4.1) g/dL Albumin/Globulin Ratio (1.0-2.8) Lipase (23-300) U/L MDM Narrative Medical decision making narrative: Patient has had a discharging of his defibrillator for unknown cause since he had no symptoms prior to that and then none afterwards. He has been and mildly rapid atrial fibrillation but that is improving with metoprolol. We are awaiting a consultation on scene from the automobile rental representative of his defibrillator company. 23:00 Patient care signed out to Dr. Gunderson with defibrillator consultation pending. All lab work, vital signs, nurse triage note, medication list, previous ER visits, and all imaging studies reviewed. Chest x-ray showed no acute process. Two sets troponins are normal. Heart score 6. Patient was seen initially by Dr. Jasiel Weiss who initially gave patient 5 of metoprolol IV now rate controlled and continued on his home regimen. I was called by [employer] who interrogated his defibrillator confirming that he did get shocked at 6:58 a.m. today showing atrial flutter 1-1 with a heart rate of 205. Case discussed with Dr. Nicole pipe fitter marine in [place] went over his records with failed ablation on multiple attempts with recent placement of defibrillator pacemaker and now in AFib given metoprolol heart rate in the 90s systolic blood pressure in the 90s and will ultimately need AV john ablation in his recommending that the patient be transferred over to [facility] to be admitted and now waiting on tele bed he recommends at this time digoxin IV. 04/22/25 Dr. Putnam: Patient signed out to myself by Dr. Gunderson. Patient is seen and evaluated by myself. 74-year-old male with defibrillator which discharged per report was interrogated and found he was shocked at 6:50 a.m. for atrial flutter 101 with a heart rate of 205. Dr. Gunderson Spoke with his cardiology team in [place] and they would like him transferred for AV john ablation. He has spoken with the Cardiology but awaiting bed assignment. Labs show normal CBC, INR of 1, electrolytes are appropriate BUN 22 creatinine 0.99 glucose is 117 LFTs are negative troponins less than 0.012, repeat is 0.018. This rise could be attributed to his defibrillation shock. BNP is 425. Chest x-ray shows no acute cardiopulmonary abnormality. Patient states he has a split second where he realized something was off before he has defibrillator went off but states he has otherwise been feeling well. Denies any symptoms currently. He notes couple of days before he went for a walk and felt fatigued quite quickly but otherwise has not had any other symptoms recently. He notes that he missed a dose of his apixaban and morning medications yesterday morning but had his evening medications in apixaban. States he has had a couple occasions where he has missed his anticoagulants. Spoke with Dr. Chirinos, on-call for Cardiology today. Discussed patient's medications he maybe held here little bit until they can get him transferred. Recommends hold his Tikosyn, we will continue to hold his apixaban asked for heparin drip. Can continue with digoxin 250 mg p.o. daily if blood pressures are soft or low. If blood pressures are stable or elevated he recommends 100 mg p.o. metoprolol b.i.d. Patient's blood pressures has been about 100-110 systolic so held off on increasing his metoprolol did give an additional dose of digoxin as he was having intermittent tachycardia. Patient does seem to having some response with a this was given IV proximally 5 hours after his p.o. digoxin dose. Patient did not have a full loading IV digoxin lows overnight and only had 250 mg. Patient did receive a dose of p.o. metoprolol 50 mg and a dose of I metoprolol during day shift. 1646 spoke with JESSICA Lezama, hospitalist service accepts for transfer. Plan for step-down unit with tele. Reviewed findings from today patient's medications heart rates ranging between 100-130 fairly consistently flipping between various rhythms. They state they are she would be at bed assignment shortly. We did note patient's blood pressure has been as as 90 systolic but currently in the 110s. Critical Care Time <Sheila Putnam DO - Last Filed: 04/22/25 18:18> Critical Care Time Critical Care Time: Yes Total Critical Care Time: 50 Attestation: The high probability of a clinically significant, sudden or life threatening deterioration of the cardiac/pulmonary system(s) required my full and direct attention, intervention and personal management. The aggregate critical care time was [--] minutes. This time is in addition to time spent performing reported procedures but includes the following: [x] Data Review and interpretation [x] Patient assessment and monitoring of vital signs [x] Documentation [x] Medication orders and management Discharge Plan Departure Patient Disposition: [facility] Clinical Impression: Atrial fib/flutter, transient Prescriptions: No Action atorvastatin 40 mg tablet 40 mg PO BEDTIME Qty: 90 3RF spironolactone 25 mg tablet 12.5 mg PO DAILY dofetilide 250 mcg capsule 250 mcg PO BID metoprolol succinate [Toprol XL] 50 mg tablet extended release 24 hr 50 mg PO BID lisinopril 5 mg tablet 5 mg PO DAILY Qty: 90 3RF Eliquis 5 mg tablet 5 mg PO BID oxycodone-acetaminophen 5-325 mg tablet 1 tab PO Q6H PRN (Reason: pain) Qty: 14 0RF Referrals: Arina Harrell DO [Primary Care Provider, Family Practice]
--- NOTE | 2025-04-21 20:21 | PC.NURSE ---
Addendum entered by Kay Wei RN 04/21/25 21:39: Talked to pharmacist technician to try and trouble shoot interrogator. Unable to be successful. Pt's spouse brought in personal interrogator. It appears to have sent report but pharmacist technician is unable to see report. Sending someone out to interrogate aicd. Original Note: Pt confirmed to have [employer] a[employer]. Tried interrogating pacemaker. interrogator unable to recognize device. waiting call from pharmacist technician to trouble shoot.
[2025-04-21 20:24] LABS: NT-proBNP (BNP-Adult 18+) 425 pg/mL (<125); Troponin I < 0.012 ng/mL (0.01-0.034)
--- NOTE | 2025-04-21 21:02 | PC.NURSE ---
Pt states forgetting to take morning meds this AM. Asked if he is able to take night time meds as scheduled. Provider aware and states patient is able to continue medication regimine
--- NOTE | 2025-04-21 21:27 | EKG_ITS ---
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
--- NOTE | 2025-04-21 21:32 | PC.NURSE ---
Pt's HR jumped up into the 160's and showed vtach rhythm. Upon entering room, patient resting happily at bedside. States he does not feel any different. EKG done
--- NOTE | 2025-04-21 22:09 | PC.NURSE ---
Waiting for [employer] pacemaker tech to come in and see if he can have pacemaker data sent to us
[2025-04-21] MEDS: METOPROLOL TARTRATE 5 MG/5 ML INJ IV (22:21)
[2025-04-21 23:27] LABS: Troponin I 0.018 ng/mL (0.01-0.034)
[2025-04-22] VITALS (81 sets, daily range): BP systolic 93–129; BP diastolic 52–98; PULSE 92–150; RESP 8–39; TEMP 37.1; O2SAT 92–98
--- NOTE | 2025-04-22 00:10 | PC.NURSE ---
Pt ambulated on own to restroom
[2025-04-22] MEDS: DIGOXIN 500 MCG/2 ML AMPUL 250 MCG IV ×2 (00:29→15:39)
--- NOTE | 2025-04-22 01:19 | PC.NURSE ---
Pt requesting toothbrush, tooth paste and warm blanket so he can go to sleep while he waits until the morning
[2025-04-22 10:27] LABS: Add Manual Diff / Slide Review NO; Hematocrit 42.2 % (41-53); Hemoglobin 14.6 g/dL (13.5-17.5); Lymphocytes Absolute Auto 1700 /uL (1100-4500); Mean Corpuscular HGB Conc 34.5 % (30-36); Mean Corpuscular Hemoglobin 31.5 PG (26-34); Mean Corpuscular Volume 91.3 fL (80-100); Platelet Count 109 X10^3/uL (150-400)
[2025-04-22 10:29] LABS: INR 1.1 (0.9-1.3); Prothrombin Time 12.6 SECONDS (9.4-12.5)
[2025-04-22] MEDS: DIGOXIN 0.125 MG TABLET 0.25 MG PO (10:32)
[2025-04-22 10:42] LABS: PTT Partial Thromboplastin Tim 26 SECONDS (25.1-36.5)
[2025-04-22] MEDS: HEPARIN DRIP 25,000 UNIT/500 ML IV.SOLN 20 UNIT IV (11:00)
[2025-04-22] MEDS: HEPARIN 5,000 UNIT/ML VIAL 5000 UNIT IV (11:00)
[2025-04-22] MEDS: METOPROLOL ER 50 MG TABLET PO (13:21)
[2025-04-22] MEDS: METOPROLOL TARTRATE 5 MG/5 ML INJ IV (14:19)
[2025-04-22] MEDS: SODIUM CHLORIDE 0.9% 1,000 ML 1000 ML IV (14:35)
[2025-04-22 17:34] LABS: PTT Partial Thromboplastin Tim 83 SECONDS (25.1-36.5)
--- NOTE | 2025-04-22 19:18 | PC.NURSE ---
Pt D/C'ed wtih [facility] with Heparin running. Report called to Carlos Eduardo BAUER at [facility]. Significant other took pt's pacemaker interrogator home.
== END 2025-04-22 19:20 | disposition short-term general hospital (02) ==
PROVIDERS: Emergency Medicine; Emergency Provider Emergency Medicine; PCP Family Medicine
DX: I48.91 Unspecified atrial fibrillation (principal); R07.9 Chest pain, unspecified; Z79.01 Long term (current) use of anticoagulants
CPT/HCPCS: 36415; 71045; 80053; 82550; 83690; 83735; 83880; 84484; 85025; 85610; 85730; 93005; 96365; 96366; 96375; 96376; 99284; 99291; J1160; J1644